=== PATIENT | female | born 1940 | race Caucasian/White ===

== ENCOUNTER 2017-09-09 13:31 | Inpatient (IN) ==
[2017-09-09] MEDS ORDERED: Ipratropium/Albuterol Neb 3 ML IH ONE (13:55)
[2017-09-09 14:30] LABS: Hematocrit 38.2 % (35.3-44.9); Mean Corpuscular HGB Conc 31.4 g/dL (31.6-35.5); Mean Corpuscular Hemoglobin 27.9 pg (28.0-33.3); Mean Corpuscular Volume 88.8 fL (83.0-100.0); Mean Platelet Volume 10.9 fL (9.4-12.4); Platelet Count 450 K/mcL (140-400); Red Cell Distribution Width 14.4 % (11.5-14.5)
[2017-09-09 14:49] LABS: BUN/Creatinine Ratio 24 (6-26); Blood Urea Nitrogen 18 mg/dL (8-23); Calcium 9.1 mg/dL (8.6-10.3); Carbon Dioxide 30 mEq/L (23-29); Chloride 94 mEq/L (98-107); Glucose 262 mg/dL (70-105); Osmolality,Calculated 289 (280-300); Potassium 4.4 mEq/L (3.5-5.1); Sodium 134 mEq/L (136-145); eGFR For African Americans > 60 (> 60); eGFR For Non-African Americans > 60 (> 60)
[2017-09-09 14:50] LABS: Troponin I 0.03 ng/mL (< 0.04)
--- NOTE | 2017-09-09 14:50 | Emergency Department Note ---
Disposition Clinical Impression: Community acquired pneumonia Qualifiers: Laterality: right Lung location: lower lobe of lung Qualified Code(s): J18.1 - Lobar pneumonia, unspecified organism Disposition: Admitted As Inpatient Condition: Fair SOB HPI - General Chief Complaint: ED Shortness of Breath/Dyspnea Stated Complaint: Shortness of breath Source: patient Mode of arrival: private vehicle Limitations: no limitations Nursing Notes Reviewed: Yes Vital Signs Reviewed: Yes - History of Present Illness Presents to the ED with complaint of feeling short of breath for the past week as well as a productive cough. She states her sputum has been dark yellow. She has been using her albuterol 4 times a day and she normally only uses it 3 times a day without any improvement. She reports chest congestion. She denies any rhinorrhea or nasal congestion. No sore throat or sneezing. No fever chills. She saw the nurse practitioner at her PCPs office 2 days ago and was diagnosed with sinusitis with postnasal drip. She was prescribed Zyrtec and Flonase. She wass not given any antibiotics. She states that she started taking some leftover prednisone that she had at home a few days ago and has been taking 40 mg a day for the past 5 days. She wears oxygen at 2-2-1/2 L at home but had oxygen saturation of 87% on arrival per nursing staff on 3 L. She has a history of COPD and takes Symbicort, Spiriva and Tessalon Perles at home. She is an ex-smoker of over 50 years and has been using E cigarettes for the past 3 years. She denies any recent travel or sick contacts. - Related Data Home Medications Medication Instructions Recorded Confirmed Budesonide/Formoterol 160/4.5 2 puff IH BIDR 03/09/15 09/09/17 [Symbicort] LORazepam [Ativan] 0.5 mg PO QID 03/09/15 09/09/17 Tiotropium [Spiriva] 18 mcg IH 0700 03/09/15 06/14/17 Aspirin [Adult Low Dose Aspirin EC] 81 mg PO 3XW 08/12/15 09/09/17 Acetylcysteine [Nac] 600 mg PO BID 09/09/17 09/09/17 Albuterol Sulfate [Ventolin Hfa] 18 gm IH AD 09/09/17 09/09/17 Atorvastatin [Lipitor] 20 mg PO DAILY 09/09/17 09/09/17 Benzonatate [Tessalon] 100 mg PO TID 09/09/17 09/09/17 Metoprolol [Lopressor] 50 mg PO DAILY 09/09/17 09/09/17 predniSONE [PredniSONE] 20 mg PO DAILY 09/09/17 09/09/17 Previous Rx's Medication Instructions Recorded Cefuroxime PO [Ceftin] 500 mg PO Q12HR #6 tablet 08/15/15 amLODIPine [Norvasc] 5 mg PO DAILY #30 tablet 08/15/15 Allergies Allergy/AdvReac Type Severity Reaction Status Date / Time codeine Allergy Rash Verified 09/09/17 13:32 levofloxacin [From Levaquin] Allergy Joint Pain Verified 09/09/17 13:32 Constitutional: Denies: fever, chills, weakness, weight change Eyes: Denies: eye pain, eye discharge, vision change ENT ED: Reports: congestion. Denies: ear pain, throat pain, dental pain, hearing loss, epistaxis, dysphagia Cardiovascular: Denies: chest pain, palpitations, dyspnea on exertion, edema, syncope Respiratory: Reports: cough, dyspnea, wheezes, sputum production. Denies: hemoptysis, stridor Gastrointestinal: Denies: abdominal pain, nausea, vomiting, diarrhea, constipation, hematemesis, melena, hematochezia Genitourinary: Denies: dysuria, frequency, hematuria, discharge Musculoskeletal: Denies: back pain, neck pain, arthralgia, myalgia Integumentary: Denies: rash, abrasion, lesions Neurological: Denies: headache, weakness, numbness, paresthesias, confusion, abnormal gait, vertigo Psychiatric: Denies: anxiety, depression, suicidal thoughts, homicidal thoughts , auditory hallucinations, visual hallucinations Endocrine: Denies: fatigue Hematological/Lymphatic: Denies: easy bleeding, easy bruising Allergic/Immunologic: Denies: facial swelling, urticaria Past Medical History - Past Medical History Medical history: Reports: COPD, hyperlipidemia, hypertension Surgical history: Reports: appendectomy Psychiatric history: Reports: anxiety - Social History Smoking Status: Former smoker Smokeless Tobacco Status: No Alcohol use: Reports: none Drug use: Reports: none Physical Exam - General Limitations: no limitations General appearance: alert, in no apparent distress - Head Head exam: atraumatic, normocephalic, normal inspection - Eye Eye exam: Present: normal appearance, PERRL, EOMI - ENT ENT exam: normal exam, normal oropharynx, mucous membranes moist - Neck Neck exam: Present: normal inspection, full ROM, trachea midline. Absent: lymphadenopathy - Chest Chest inspection: Present: normal inspection, symmetric chest wall rise - Respiratory Respiratory exam: Present: wheezes (scattered). Absent: respiratory distress - Cardiovascular Cardiovascular exam: Present: regular rate, normal rhythm, normal heart sounds - Abdominal Exam Abdominal exam: Present: soft, Non-Tender. Absent: tenderness, distention, guarding, rebound, rigidity - Extremities Exam Extremities exam: Present: normal inspection, full ROM. Absent: tenderness, pedal edema - Back Exam Back exam: Present: normal inspection, full ROM. Absent: tenderness - Neurological Exam Neurological exam: Present: alert, oriented X3 - Psychiatric Psychiatric exam: Present: normal affect, normal mood - Skin Skin exam: Present: warm, dry, intact, normal color Course Course Narrative: Patient presents to the ED with complaint of shortness of breath and productive cough for one week with history of COPD and home oxygen use. Per nursing staff patient had diffuse wheezing on arrival was satting 87%. She received 2 DuoNeb treatments prior to my assessment. On my assessment patient only had some scattered wheezing and oxygen saturations had improved to 93% on 3 L. Primary concern would be for pneumonia versus COPD exacerbation. Less likely CHF. Chest x-ray and laboratory studies have already been obtained and are pending. - Reevaluation(s) Reevaluation #1: KG shows a sinus rhythm with no acute ischemic changes. Chest x-ray shows possibility of by basilar infiltrates versus possible CHF. Patient does have an elevated d-dimer. Will obtain CTA of the chest to rule out PE and better clarify whether the patient is experiencing pneumonia versus CHF. Laboratory studies do show significant leukocytosis with left shift which I feel is due to both a likely pneumonia as well as her recent high steroid use. She also has a mildly elevated lactic acid. She is afebrile however and her tachycardia has resolved with her improved oxygenation. Will obtain blood cultures and start antibiotics for suspected pneumonia. Reevaluation #2: CT scan of the chest did not show any PE. Does show right lower lobe pneumonia as well as some other scattered opacities consistent with nodule seen on previous CT scans. Patient has remained comfortable with no respiratory distress or recurrent hypoxia. Discussed with patient the need for admission for continued antibiotic therapy and breathing treatments and she is in agreement. Blood cultures been drawn and antibiotics have been initiated. Will contact the hospitalist regarding admission. Reevaluation #3: I spoke to the hospitalist on-call, Dr. Dave, who has accepted the patient. Will make arrangements for admission. Time: 17:56 Vital Signs Pulse Rate 94 09/09/17 13:31 Respiratory Rate 22 09/09/17 13:31 Blood Pressure 109/64 09/09/17 13:31 O2 Sat by Pulse Oximetry 92 09/09/17 13:31 Temperature 98.1 F 09/09/17 20:54 Pulse Rate 97 09/09/17 20:54 Respiratory Rate 16 09/10/17 00:01 Blood Pressure 140/76 09/09/17 20:54 O2 Sat by Pulse Oximetry 96 09/10/17 00:01 Oxygen Delivery Oxygen Delivery Nasal Cannula Shortness of Breath/Dyspnea - Differential Diagnosis Likely: acute exacerbation of chronic obstructive airways disease, congestive heart failure, pneumonia, pulmonary embolism - Medical Records Medical records reviewed: Yes I reviewed the patient's medical records. - Lab Data Lab results reviewed: Yes I reviewed the patient's lab results. Result diagrams: 09/09/17 14:10 09/09/17 14:10 Lab Results 09/09/17 09/09/17 09/09/17 Range/Units 14:10 14:10 14:10 WBC 40.0 H* (4.3-11.1) K/mcL RBC 4.30 (3.82-4.97) M/mcL Hgb 12.0 (11.5-15.4) g/dL Hct 38.2 (35.3-44.9) % MCV 88.8 (83.0-100.0) fL MCH 27.9 L (28.0-33.3) pg MCHC 31.4 L (31.6-35.5) g/dL RDW 14.4 (11.5-14.5) % Plt Count 450 H (140-400) K/mcL MPV 10.9 (9.4-12.4) fL Seg Neutrophils % 78.0 % Band Neutrophils % 8.0 H (0-4) % Lymphocytes % 12.0 % Basophils % 2.0 % Neutrophils # 34.4 H (1.6-8.9) K/mcL Lymphocytes # 4.8 H (0.6-4.6) K/mcL Basophils # 0.8 H (0.0-0.2) K/mcL D-Dimer 1732 H (0-500) ng/mLFEU Sodium 134 L (136-145) mEq/L Potassium 4.4 (3.5-5.1) mEq/L Chloride 94 L (98-107) mEq/L Carbon Dioxide 30 H (23-29) mEq/L BUN 18 (8-23) mg/dL Creatinine 0.76 (0.60-1.20) mg/dL Est GFR ( Amer) > 60 (> 60) Est GFR (Non-Af Amer) > 60 (> 60) BUN/Creatinine Ratio 24 (6-26) Glucose 262 H (70-105) mg/dL Calculated Osmolality 289 (280-300) Lactic Acid (0.5-2.2) mmol/L Calcium 9.1 (8.6-10.3) mg/dL Troponin I 0.03 (< 0.04) ng/mL B-Natriuretic Peptide (Less than 100) pg/mL Urine Color (Yellow) Urine Clarity (Clear) Urine pH (5.0-8.0) pH Units Ur Specific [place] (1.010-1.025) Urine Protein (Neg-Trace) mg/dL Urine Glucose (UA) (Normal) mg/dL Urine Ketones (Negative) mg/dL Urine Blood (Negative) Urine Nitrite (Negative) Urine Bilirubin (Negative) Urine Urobilinogen (Normal) mg/dL Ur Leukocyte Esterase (Negative) Urine Microscopic WBC (0-3) per hpf Ur Squamous Epith Cells (None-Few) per lpf Ur Renal Epithelial Cell (None-Few) per hpf Ur Culture Indicated? (NO) 09/09/17 09/09/17 09/09/17 Range/Units 14:10 14:10 16:00 WBC (4.3-11.1) K/mcL RBC (3.82-4.97) M/mcL Hgb (11.5-15.4) g/dL Hct (35.3-44.9) % MCV (83.0-100.0) fL MCH (28.0-33.3) pg MCHC (31.6-35.5) g/dL RDW (11.5-14.5) % Plt Count (140-400) K/mcL MPV (9.4-12.4) fL Seg Neutrophils % % Band Neutrophils % (0-4) % Lymphocytes % % Basophils % % Neutrophils # (1.6-8.9) K/mcL Lymphocytes # (0.6-4.6) K/mcL Basophils # (0.0-0.2) K/mcL D-Dimer (0-500) ng/mLFEU Sodium (136-145) mEq/L Potassium (3.5-5.1) mEq/L Chloride (98-107) mEq/L Carbon Dioxide (23-29) mEq/L BUN (8-23) mg/dL Creatinine (0.60-1.20) mg/dL Est GFR ( Amer) (> 60) Est GFR (Non-Af Amer) (> 60) BUN/Creatinine Ratio (6-26) Glucose (70-105) mg/dL Calculated Osmolality (280-300) Lactic Acid 2.4 H (0.5-2.2) mmol/L Calcium (8.6-10.3) mg/dL Troponin I (< 0.04) ng/mL B-Natriuretic Peptide 580 H (Less than 100) pg/mL Urine Color Yellow (Yellow) Urine Clarity Clear (Clear) Urine pH 5.0 (5.0-8.0) pH Units Ur Specific [place] <= 1.005 L (1.010-1.025) Urine Protein 30 H (Neg-Trace) mg/dL Urine Glucose (UA) Normal (Normal) mg/dL Urine Ketones Negative (Negative) mg/dL Urine Blood Negative (Negative) Urine Nitrite Negative (Negative) Urine Bilirubin Negative (Negative) Urine Urobilinogen Normal (Normal) mg/dL Ur Leukocyte Esterase Negative (Negative) Urine Microscopic WBC 0-3 (0-3) per hpf Ur Squamous Epith Cells Few (None-Few) per lpf Ur Renal Epithelial Cell Few (None-Few) per hpf Ur Culture Indicated? NO (NO) - Radiology Data Radiology results reviewed: Yes I reviewed the patient's radiology results. ITS Impressions Chest X-Ray 09/09/17 13:58 IMPRESSION: Bibasilar infiltrates, right greater than left, with small effusions. Findings may be related to CHF or pneumonia. D/ / Bhaskar Vazquez MD / Bhaskar Vazquez MD Interpreting Provider: Bhaskar Vazquez MD Chest CTA 09/09/17 15:06 IMPRESSION: 1. No pulmonary embolus is identified. 2. Right lower lobe pneumonia suspected, new since prior. Other areas of peripheral nodular opacification in the bilateral lower lobes are identified that also appear new. 3. Nodular scarring in the right apex is identified and not significantly changed in appearance compared to the July 2016 evaluation. This is more prominent in size compared to the July 2015 evaluation, now measuring up to 25 mm in maximum dimension. RECOMMENDATIONS: 1. Short-term follow-up CT to evaluate for resolution of pneumonia. 2. Consider PET-CT to evaluate any metabolic activity in the area of right apical opacification that appears enlarged compared to prior evaluation of 08/13/2015. D/ : / 09/09/2017 17:05:44 Thaddeus Fan / sky Interpreting Provider: Thaddeus Fan - EKG Data EKG attestation: Yes I reviewed and interpreted this EKG. EKG shows normal: Reports: sinus rhythm Rate: Reports: tachycardia Rhythm: Reports: NSR [place]/QRS: Reports: left axis deviation, LBBB When compared to previous EKG there are: previous EKG unavailable Interpretation: Reports: no acute changes
[2017-09-09 14:59] LABS: Basophils # 0.8 K/mcL (0.0-0.2); Lymphocytes # 4.8 K/mcL (0.6-4.6); Neutrophils # 34.4 K/mcL (1.6-8.9)
[2017-09-09] MEDS ORDERED: Isovue-370 500 ML INFUS..BTL IV ONE ×2 (15:06→20:57)
[2017-09-09] MEDS ORDERED: cefTRIAXone 1,000 MG in Water for inj. (sterile) 20 ML 10 ML IVP ONE (15:07)
[2017-09-09] MEDS ORDERED: Azithromycin 500 MG in D5% in Water 250 ML IVPB ONE (15:07)
[2017-09-09 16:30] LABS: Bilirubin,Urine Negative (Negative); Blood,Urine Negative (Negative); Clarity,Urine Clear (Clear); Color,Urine Yellow (Yellow); Glucose,Urine (UA) Normal (Normal); Ketones,Urine Negative (Negative); Leukocyte Esterase,Urine Negative (Negative); Nitrite,Urine Negative (Negative); Protein,Urine 30 mg/dL (Neg-Trace); Specific Gravity,Urine <= 1.005 (1.010-1.025); Urobilinogen,Urine Normal (Normal)
[2017-09-09 16:36] LABS: Renal Epithelial Cells,Urine Few per hpf (None-Few); Squamous Epithelial Cell,Urine Few per lpf (None-Few); WBC,Urine 0-3 per hpf (0-3)
[2017-09-09] MEDS ORDERED: 0.9 % Sodium Chloride 1,000 ML IVC SCH (17:45)
[2017-09-09] MEDS ORDERED: Naloxone 0.4 MG/ML INJ IVP PRN ×2 (18:36→20:57)
[2017-09-09] MEDS ORDERED: predniSONE 5 MG TABLET PO ONE (18:40)
[2017-09-09] MEDS ORDERED: Ipratropium/Albuterol Neb 3 ML IH SCH (20:00)
[2017-09-09] MEDS ORDERED: *HR* Acetylcysteine 20% 600 MG/3 ML ORAL SYRINGE PO SCH (21:00)
[2017-09-09] MEDS: Budesonide/Formoterol 160/4.5 MDI IH SCH (21:41)
[2017-09-09] MEDS: Benzonatate 100 MG CAPSULE PO SCH (21:50)
[2017-09-09] MEDS: *HR* LORazepam 0.5 MG TABLET PO SCH (21:50)
[2017-09-10] MEDS: Ipratropium/Albuterol Neb 3 ML IH SCH ×4 (00:01→16:31)
[2017-09-10] MEDS: 0.9 % Sodium Chloride 1,000 ML IVC SCH ×3 (03:00→11:35)
[2017-09-10 06:48] LABS: Basophils % 0.1 %; Hematocrit 31.4 % (35.3-44.9); Hemoglobin 9.6 g/dL (11.5-15.4); Lymphocytes # 0.6 K/mcL (0.6-4.6); Lymphocytes % 2.3 %; Mean Corpuscular HGB Conc 30.6 g/dL (31.6-35.5); Mean Corpuscular Hemoglobin 27.7 pg (28.0-33.3); Mean Corpuscular Volume 90.5 fL (83.0-100.0); Mean Platelet Volume 11.1 fL (9.4-12.4); Monocytes # 1.1 K/mcL (0.0-1.3); Monocytes % 4.5 %; Platelet Count 340 K/mcL (140-400); Red Blood Count 3.47 M/mcL (3.82-4.97); Red Cell Distribution Width 14.4 % (11.5-14.5); Segmented Neutrophils % 92.1 %
[2017-09-10 07:25] LABS: Neutrophils # 22.5 K/mcL (1.6-8.9)
[2017-09-10 07:32] LABS: Anisocytosis 1+ (Not Present); Ovalocytes 1+ (Not Present); Platelet Estimate Normal (Normal)
[2017-09-10] MEDS: Benzonatate 100 MG CAPSULE PO SCH ×3 (08:25→20:49)
[2017-09-10] MEDS: *HR* LORazepam 0.5 MG TABLET PO SCH ×4 (08:25→20:49)
[2017-09-10] MEDS: amLODIPine 5 MG TABLET PO SCH (08:25)
[2017-09-10] MEDS: Tiotropium 18 MCG inhalation IH SCH (08:55)
[2017-09-10] MEDS: Budesonide/Formoterol 160/4.5 MDI IH SCH ×2 (10:23→21:12)
[2017-09-10] MEDS: Nicotine 21 MG PATCH.TD24 TD SCH (11:34)
--- NOTE | 2017-09-10 12:16 | Internal Med History&Physical ---
Date of Encounter: 09/10/17 Time of Encounter: 11:45 Assessment and Plan (1) Community acquired pneumonia Current visit: Yes Status: Acute She was given Rocephin and Zithromax in emergency room. We will continue these with lactobacillus. Qualifiers: Laterality: right Lung location: lower lobe of lung Qualified Code(s): J18.1 - Lobar pneumonia, unspecified organism (2) Acute exacerbation of chronic obstructive airways disease Current visit: No Status: Acute Continue antibiotics with Symbicort, Spiriva, and duonebs. (3) Hypertension Current visit: No Status: Chronic Continue Norvasc and Lopressor Qualifiers: Hypertension type: essential hypertension Qualified Code(s): I10 - Essential (primary) hypertension (4) Anemia Current visit: Yes Status: Acute Hemoglobin decreased to 9.6 today. We will order anemia testing in a.m. Qualifiers: Anemia type: unspecified type Qualified Code(s): D64.9 - Anemia, unspecified Internal Medicine - H&P: HPI Chief complaint: Cough, dyspnea, chest pain Admitted From: Emergency Dept Plans for Post Hospital Care: Home History of present illness: Ms. Huff is a 77 year old female who came to emergency room stating she has had cough for approximately 2 weeks with production of yellow sputum. She denies hemoptysis. She reports the morning of September 08 she developed lower oxygen saturation by her home pulse oximetry. She had some soreness in her back and lateral chest area. She did not improve so came to emergency room on September 09. Workup showed significant leukocytosis with left shift and CT evidence of right lower lobe pneumonia with peripheral nodular opacifications in bilateral lower lobes. She was admitted to [facility] floor for ongoing care needs. She quit smoking 2015 after smoking for over 50 years never exceeding 1 pack per day. She now uses vapor nicotine source. She had pulmonary function tests approximately July 2015 that showed very severe obstructive lung disease without significant bronchodilator response. Her FEV1 was 27% predicted and she had evidence of air trapping. She wears oxygen at home nearly 24. She has not been tested for sleep apnea. Past Med Surg Social Fam HX - Past Medical History Medical history: COPD, hyperlipidemia, hypertension Psychiatric history: anxiety - Past Surgical History Surgical History: appendectomy - Social History Smoking Status: Former smoker Smokeless Tobacco Status: No Alcohol use: none Drug use: none - Family History Mother Hx Family Cardiac Disorders: Yes ([place]) Hx Family Medical Disorders: Yes (stroke) Father Hx Family Cardiac Disorders: Yes ([place]) Internal Medicine - H&P: Meds Budesonide/Formoterol 160/4.5 [Symbicort] 2 puff IH BIDR 03/09/15 [History] LORazepam [Ativan] 0.5 mg PO QID 03/09/15 [History] Tiotropium [Spiriva] 18 mcg IH 0700 03/09/15 [History] Aspirin [Adult Low Dose Aspirin EC] 81 mg PO 3XW 08/12/15 [History] Cefuroxime PO [Ceftin] 500 mg PO Q12HR #6 tablet 08/15/15 [Rx] amLODIPine [Norvasc] 5 mg PO DAILY #30 tablet 08/15/15 [Rx] Acetylcysteine [Nac] 600 mg PO BID 09/09/17 [History] Albuterol Sulfate [Ventolin Hfa] 18 gm IH AD 09/09/17 [History] Atorvastatin [Lipitor] 20 mg PO DAILY 09/09/17 [History] Benzonatate [Tessalon] 100 mg PO TID 09/09/17 [History] Metoprolol [Lopressor] 50 mg PO DAILY 09/09/17 [History] predniSONE [PredniSONE] 20 mg PO DAILY 09/09/17 [History] 3 Allergy/AdvReac Type Severity Reaction Status Date / Time codeine Allergy Rash Verified 09/09/17 13:32 levofloxacin [From Levaquin] Allergy Joint Pain Verified 09/09/17 13:32 All Systems PM: A 10-system review of systems was performed and is negative for pertinent findings except as documented above in the HPI. Review of systems: Gen.: Her weight has decreased from 54.613 kg on 08/15/2015 to 51.71 kg now Cardiovascular: She has hypertension but no known [place] heart failure angina DVT or pulmonary embolus. She reports she had a "heart rhythm" issue approximately 3 years ago does not recall the name. She saw a vacuum cooker operator for 1 visit and was told she did not need to return. Respiratory: As per history of present illness GI: She denies disorders of her liver gallbladder or exocrine pancreas. : No known hematuria dysuria or kidney stones. Neurologic: No history of large distribution strokes or seizures. Endocrine: She has had right thyroid "enlargement" but is uncertain if it is a cyst or nodule. She has a history of hyperlipidemia but no known diabetes. Hematology/oncology: She denies blood disorders cancers or anemia. Psychiatric: She has anxiety and depression. [place] skeletal: She denies arthritis gout or osteoporosis. - Constitutional Vitals: Temp Pulse Resp BP Pulse Ox 97.7 F 104 22 136/79 92 09/10/17 10:22 09/10/17 10:22 09/10/17 10:22 09/10/17 10:22 09/10/17 10:22 Exam: Gen.: She is well-developed lean occasion female sitting on the side of bed who appears in minimal distress at present time HEENT: Head is atraumatic and normocephalic. Eyes: EOMI. There is no scleral icterus. Mouth: Mucosa is moist. Neck: Supple and nontender. There is no thyromegaly or adenopathy noted. Heart: Regular without murmurs gallops or ectopics Lungs: She has diminished breath sounds diffusely. There is egophony in the upper lobes bilaterally posteriorly. No expiratory wheezing is heard. Abdomen: Nontender to palpation. Exam is limited because she is in the seated position. Extremities: She has trace edema of the dorsum of the feet and lower anterior shins bilaterally. Dorsalis pedis and posterior tibial pulses are trace palpable. She has DJD changes or hands. Neurologic: Mental status: She is talkative and a good historian. Cranial nerves: Smile is symmetric. Forehead wrinkles bilaterally. Tongue protrudes midline. EOMI. Motor: There is no pronator drift. Cerebellar: Finger to nose is intact bilaterally. Skin: Warm and dry Internal Med - H&P Results - Labs CBC & Chem 7: 09/10/17 04:02 09/09/17 14:10 Labs: Short CBC 09/10/17 Range/Units 04:02 WBC 24.4 H (4.3-11.1) K/mcL Hgb 9.6 L D (11.5-15.4) g/dL Hct 31.4 L (35.3-44.9) % Plt Count 340 (140-400) K/mcL Neutrophils # 22.5 H (1.6-8.9) K/mcL - VTE Reasons for not Prescribing Prophylaxis: Treatment not Indicated - Low risk for VTE
[2017-09-10] MEDS ORDERED: D5% in Water 250 ML ONE (14:39)
[2017-09-10] MEDS: cefTRIAXone 1,000 MG in Water for inj. (sterile) 20 ML 10 ML IVP SCH (14:46)
[2017-09-10] MEDS: Azithromycin 500 MG in D5% in Water 250 ML IVPB SCH (14:47)
--- NOTE | 2017-09-10 17:04 | Electrocardiograph Report ---
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
[2017-09-10] MEDS: Lactobacillus 1 EACH CAP.SPRINK PO SCH (20:49)
[2017-09-10] MEDS: Loratadine 10 MG TABLET PO SCH (20:49)
[2017-09-10] MEDS: Fluticasone Propionate Nasal 50 MCG/SPRAY BOTTLE NS SCH (20:49)
[2017-09-10] MEDS: Albuterol 2.5 MG/3 ML NEBULIZER IH PRN (21:16)
[2017-09-11] MEDS: Acetaminophen 325 MG TABLET PO PRN (00:01)
[2017-09-11] MEDS: *HR* Enoxaparin 40 MG/0.4 ML SYRINGE SQ SCH (06:28)
[2017-09-11] MEDS: Tiotropium 18 MCG inhalation IH SCH (08:00)
[2017-09-11] MEDS: Albuterol 2.5 MG/3 ML NEBULIZER IH PRN ×2 (08:05→20:35)
[2017-09-11] MEDS: Aspirin Enteric Coated 81 MG Tablet PO SCH (08:38)
[2017-09-11] MEDS: Loratadine 10 MG TABLET PO SCH (08:39)
[2017-09-11] MEDS: amLODIPine 5 MG TABLET PO SCH (08:39)
[2017-09-11] MEDS: Lactobacillus 1 EACH CAP.SPRINK PO SCH ×2 (08:39→20:23)
[2017-09-11] MEDS: *HR* LORazepam 0.5 MG TABLET PO SCH ×4 (08:39→20:23)
[2017-09-11] MEDS: Benzonatate 100 MG CAPSULE PO SCH ×3 (08:47→20:23)
[2017-09-11] MEDS: cefTRIAXone 1,000 MG in Water for inj. (sterile) 20 ML 10 ML IVP SCH (08:48)
[2017-09-11] MEDS: Fluticasone Propionate Nasal 50 MCG/SPRAY BOTTLE NS SCH (08:55)
[2017-09-11] MEDS: Nicotine 21 MG PATCH.TD24 TD SCH (08:56)
[2017-09-11] MEDS: Budesonide/Formoterol 160/4.5 MDI IH SCH ×2 (10:29→20:35)
[2017-09-11 12:05] LABS: Basophils # 0.1 K/mcL (0.0-0.2); Basophils % 0.3 %; Eosinophils # 0.2 K/mcL (0.0-0.6); Hematocrit 37.5 % (35.3-44.9); Hemoglobin 11.4 g/dL (11.5-15.4); Lymphocytes # 1.1 K/mcL (0.6-4.6); Lymphocytes % 5.5 %; Mean Corpuscular HGB Conc 30.4 g/dL (31.6-35.5); Mean Corpuscular Hemoglobin 27.7 pg (28.0-33.3); Mean Platelet Volume 10.1 fL (9.4-12.4); Monocytes # 1.4 K/mcL (0.0-1.3); Monocytes % 7.1 %; Neutrophils # 16.7 K/mcL (1.6-8.9); Platelet Count 454 K/mcL (140-400); Red Blood Count 4.12 M/mcL (3.82-4.97); Red Cell Distribution Width 14.4 % (11.5-14.5); Segmented Neutrophils % 85.1 %
[2017-09-11] MEDS ORDERED: Azithromycin 500 MG VIAL IVPB ONE (13:16)
[2017-09-11] MEDS: Azithromycin 500 MG in D5% in Water 250 ML IVPB SCH (13:23)
--- NOTE | 2017-09-11 18:18 | Internal Med Progress Note ---
Date of Encounter: 09/11/17 Time of Encounter: 12:25 - Assessment and plan (1) Community acquired pneumonia Current Visit: Yes Status: Acute Assessment and plan: September 11. Continue Rocephin and Zithromax with lactobacillus. Qualifiers: Laterality: right Lung location: lower lobe of lung Qualified Code(s): J18.1 - Lobar pneumonia, unspecified organism (2) Acute exacerbation of chronic obstructive airways disease Current Visit: No Status: Acute Assessment and plan: September 11. Continue antibiotics with Symbicort, Spiriva, and albuterol nebs (3) Hypertension Current Visit: No Status: Chronic Assessment and plan: September 11. Continue Norvasc and Lopressor. Qualifiers: Hypertension type: essential hypertension Qualified Code(s): I10 - Essential (primary) hypertension (4) Anemia Current Visit: Yes Status: Acute Assessment and plan: September 11. Hemoglobin improved to 11.4. We will order anemia testing in a.m. Qualifiers: Anemia type: unspecified type Qualified Code(s): D64.9 - Anemia, unspecified - Subjective Interval history: September 11. She has no new complaints. - Constitutional Vitals: Temp Pulse Resp BP Pulse Ox 98.0 F 99 22 128/77 92 09/11/17 15:38 09/11/17 15:38 09/11/17 15:38 09/11/17 15:38 09/11/17 15:38 Exam: She is sitting on the side of bed resting comfortably. Her oxygen saturation is 89-90% at rest. She does not appear significantly dyspneic. I reviewed her medications and lab results. Internal Medicine: Result - Labs CBC & Chem 7: 09/11/17 11:58 09/09/17 14:10 Labs: Short CBC 09/11/17 Range/Units 11:58 WBC 19.6 H (4.3-11.1) K/mcL Hgb 11.4 L D (11.5-15.4) g/dL Hct 37.5 (35.3-44.9) % Plt Count 454 H (140-400) K/mcL Neutrophils # 16.7 H (1.6-8.9) K/mcL - ABG Interpretation ABG results: PT/INR, D-dimer D-Dimer 1732 ng/mLFEU (0-500) H 09/09/17 14:10 - VTE Reasons for not Prescribing Prophylaxis: Treatment not Indicated - Low risk for VTE Consult Discharge Plan - Plan Referrals: Chung Henderson MD [Primary Care Provider] - 1 week
[2017-09-12] MEDS: Acetaminophen 325 MG TABLET PO PRN ×2 (00:18→18:34)
[2017-09-12] MEDS: *HR* Enoxaparin 40 MG/0.4 ML SYRINGE SQ SCH (05:30)
[2017-09-12 06:46] LABS: Basophils # 0.1 K/mcL (0.0-0.2); Basophils % 0.3 %; Eosinophils # 0.2 K/mcL (0.0-0.6); Eosinophils % 1.2 %; Hematocrit 34.7 % (35.3-44.9); Hemoglobin 10.8 g/dL (11.5-15.4); Immature Granulocytes % 0.8 % (0-4); Lymphocytes # 1.5 K/mcL (0.6-4.6); Lymphocytes % 8.3 %; Mean Corpuscular HGB Conc 31.1 g/dL (31.6-35.5); Mean Corpuscular Hemoglobin 27.6 pg (28.0-33.3); Mean Corpuscular Volume 88.5 fL (83.0-100.0); Mean Platelet Volume 10.3 fL (9.4-12.4); Monocytes # 1.3 K/mcL (0.0-1.3); Monocytes % 7.1 %; Neutrophils # 15.1 K/mcL (1.6-8.9); Platelet Count 405 K/mcL (140-400); Red Blood Count 3.92 M/mcL (3.82-4.97); Red Cell Distribution Width 14.2 % (11.5-14.5); Segmented Neutrophils % 82.3 %
[2017-09-12 07:06] LABS: BUN/Creatinine Ratio 25 (6-26); Blood Urea Nitrogen 14 mg/dL (8-23); Calcium 8.3 mg/dL (8.6-10.3); Carbon Dioxide 31 mEq/L (23-29); Chloride 94 mEq/L (98-107); Glucose 148 mg/dL (70-105); Osmolality,Calculated 275 (280-300); Potassium 3.9 mEq/L (3.5-5.1); Sodium 131 mEq/L (136-145); eGFR For African Americans > 60 (> 60); eGFR For Non-African Americans > 60 (> 60)
[2017-09-12] MEDS: Nicotine 21 MG PATCH.TD24 TD SCH (08:42)
[2017-09-12] MEDS: *HR* LORazepam 0.5 MG TABLET PO SCH ×4 (08:43→21:05)
[2017-09-12] MEDS: cefTRIAXone 1,000 MG in Water for inj. (sterile) 20 ML 10 ML IVP SCH (08:43)
[2017-09-12] MEDS: amLODIPine 5 MG TABLET PO SCH (08:43)
[2017-09-12] MEDS: Benzonatate 100 MG CAPSULE PO SCH ×3 (08:43→21:05)
[2017-09-12] MEDS: Lactobacillus 1 EACH CAP.SPRINK PO SCH ×2 (08:43→21:05)
[2017-09-12] MEDS: Loratadine 10 MG TABLET PO SCH (08:43)
[2017-09-12] MEDS: Fluticasone Propionate Nasal 50 MCG/SPRAY BOTTLE NS SCH (08:44)
[2017-09-12] MEDS ORDERED: Bisacodyl 10 MG RECTAL SUPPOSITORY RC PRN (09:09)
--- NOTE | 2017-09-12 09:15 | Internal Med Progress Note ---
Date of Encounter: 09/12/17 Time of Encounter: 09:00 - Assessment and plan (1) Community acquired pneumonia Current Visit: Yes Status: Acute Assessment and plan: September 11. Continue Rocephin and Zithromax with lactobacillus. Qualifiers: Laterality: right Lung location: lower lobe of lung Qualified Code(s): J18.1 - Lobar pneumonia, unspecified organism (2) Acute exacerbation of chronic obstructive airways disease Current Visit: No Status: Acute Assessment and plan: September 11. Continue antibiotics with Symbicort, Spiriva, and albuterol nebs (3) Hypertension Current Visit: No Status: Chronic Assessment and plan: September 11. Continue Norvasc and Lopressor. September 12. We will discontinue Norvasc because of edema. We will increase Lopressor to 50 mg twice a day. Qualifiers: Hypertension type: essential hypertension Qualified Code(s): I10 - Essential (primary) hypertension (4) Anemia Current Visit: Yes Status: Acute Assessment and plan: September 11. Hemoglobin improved to 11.4. We will order anemia testing in a.m. September 12. Anemia testing pending. Qualifiers: Anemia type: unspecified type Qualified Code(s): D64.9 - Anemia, unspecified (5) Elevated brain natriuretic peptide (BNP) level Current Visit: Yes Status: Acute Assessment and plan: September 12. No echocardiogram is on file. We will discontinue Norvasc and increase Lopressor. Start isosorbide and Bumex. Recheck labs in a.m. - Subjective Interval history: September 11. She has no new complaints. September 12. She has no new complaints and states she feels better. - Constitutional Vitals: Temp Pulse Resp BP Pulse Ox 98.2 F 108 19 129/74 92 09/12/17 06:56 09/12/17 06:56 09/12/17 06:56 09/12/17 06:56 09/12/17 06:56 Exam: She is resting fairly comfortably in bed. Lungs show no wheezes or crackles. Extremities show 1-2+ edema bilaterally to lower legs. I reviewed her medications. I reviewed pertinent lab results with her. Internal Medicine: Result - Labs CBC & Chem 7: 09/12/17 06:21 09/12/17 06:21 Labs: Short CBC 09/11/17 09/12/17 Range/Units 11:58 06:21 WBC 19.6 H 18.3 H (4.3-11.1) K/mcL Hgb 11.4 L D 10.8 L (11.5-15.4) g/dL Hct 37.5 34.7 L (35.3-44.9) % Plt Count 454 H 405 H (140-400) K/mcL Neutrophils # 16.7 H 15.1 H (1.6-8.9) K/mcL BMP 09/12/17 06:21 Sodium 131 L Potassium 3.9 Chloride 94 L Carbon Dioxide 31 H BUN 14 Creatinine 0.57 L Glucose 148 H Calcium 8.3 L - ABG Interpretation ABG results: PT/INR, D-dimer D-Dimer 1732 ng/mLFEU (0-500) H 09/09/17 14:10 - VTE Reasons for not Prescribing Prophylaxis: Treatment not Indicated - Low risk for VTE Consult Discharge Plan - Plan Referrals: Chung Henderson MD [Primary Care Provider] - 1 week
[2017-09-12] MEDS: Albuterol 2.5 MG/3 ML NEBULIZER IH PRN ×4 (09:40→21:23)
[2017-09-12] MEDS: Budesonide/Formoterol 160/4.5 MDI IH SCH ×2 (09:43→21:20)
[2017-09-12] MEDS: Tiotropium 18 MCG inhalation IH SCH (09:46)
[2017-09-12 09:49] LABS: % Iron Saturation 12 % (15-50); Ferritin 173 ng/ml (10-120); Iron 35 mcg/dL (50-170); Transferrin 207 mg/dL (203-362)
[2017-09-12 10:15] LABS: Folate 20.4 ng/mL (3.0-16.0)
[2017-09-12] MEDS: Bumetanide 1 MG TABLET PO SCH (10:32)
[2017-09-12] MEDS: Isosorbide MONOnitrate (24 HR) 30 MG TAB.ER.24H PO SCH (10:32)
[2017-09-12] MEDS: MOM Conc 10 ML UD.LIQ PO SCH (10:32)
[2017-09-12] MEDS: Azithromycin 500 MG in D5% in Water 250 ML IVPB SCH (13:54)
[2017-09-13] MEDS: *HR* Enoxaparin 40 MG/0.4 ML SYRINGE SQ SCH (05:13)
[2017-09-13 07:02] LABS: Basophils # 0.1 K/mcL (0.0-0.2); Basophils % 0.3 %; Eosinophils # 0.3 K/mcL (0.0-0.6); Eosinophils % 1.7 %; Hematocrit 34.8 % (35.3-44.9); Lymphocytes # 1.7 K/mcL (0.6-4.6); Lymphocytes % 8.8 %; Mean Corpuscular HGB Conc 31.6 g/dL (31.6-35.5); Mean Corpuscular Hemoglobin 27.6 pg (28.0-33.3); Mean Corpuscular Volume 87.2 fL (83.0-100.0); Mean Platelet Volume 10.4 fL (9.4-12.4); Monocytes # 1.6 K/mcL (0.0-1.3); Monocytes % 8.4 %; Platelet Count 458 K/mcL (140-400); Red Blood Count 3.99 M/mcL (3.82-4.97); Segmented Neutrophils % 79.8 %
[2017-09-13 07:23] LABS: Neutrophils # 14.9 K/mcL (1.6-8.9)
[2017-09-13] MEDS: Benzonatate 100 MG CAPSULE PO SCH ×3 (08:50→21:52)
[2017-09-13] MEDS: Bumetanide 1 MG TABLET PO SCH ×2 (08:51→16:44)
[2017-09-13] MEDS: cefTRIAXone 1,000 MG in Water for inj. (sterile) 20 ML 10 ML IVP SCH (08:51)
[2017-09-13] MEDS: Isosorbide MONOnitrate (24 HR) 30 MG TAB.ER.24H PO SCH (08:57)
[2017-09-13] MEDS: *HR* LORazepam 0.5 MG TABLET PO SCH ×4 (08:57→21:52)
[2017-09-13] MEDS: Lactobacillus 1 EACH CAP.SPRINK PO SCH ×2 (08:58→21:52)
[2017-09-13] MEDS: Nicotine 21 MG PATCH.TD24 TD SCH (08:58)
[2017-09-13] MEDS: Loratadine 10 MG TABLET PO SCH (08:58)
[2017-09-13] MEDS: Albuterol 2.5 MG/3 ML NEBULIZER IH PRN ×3 (09:11→22:56)
[2017-09-13] MEDS: Budesonide/Formoterol 160/4.5 MDI IH SCH ×2 (09:13→22:56)
[2017-09-13] MEDS: Tiotropium 18 MCG inhalation IH SCH (09:15)
--- NOTE | 2017-09-13 09:41 | Internal Med Progress Note ---
Date of Encounter: 09/13/17 Time of Encounter: 09:25 - Assessment and plan (1) Community acquired pneumonia Current Visit: Yes Status: Acute Assessment and plan: September 11. Continue Rocephin and Zithromax with lactobacillus. September 13. We will change from Rocephin and Zithromax to Azactam and doxycycline. Continue lactobacillus. Qualifiers: Laterality: right Lung location: lower lobe of lung Qualified Code(s): J18.1 - Lobar pneumonia, unspecified organism (2) Acute exacerbation of chronic obstructive airways disease Current Visit: No Status: Acute Assessment and plan: September 11. Continue antibiotics with Symbicort, Spiriva, and albuterol nebs September 13. We will change antibiotics as per above and continue pulmonary regimen otherwise. (3) Hypertension Current Visit: No Status: Chronic Assessment and plan: September 11. Continue Norvasc and Lopressor. September 12. We will discontinue Norvasc because of edema. We will increase Lopressor to 50 mg twice a day. September 13. Continue higher dose Lopressor and remain off Norvasc. Qualifiers: Hypertension type: essential hypertension Qualified Code(s): I10 - Essential (primary) hypertension (4) Anemia Current Visit: Yes Status: Acute Assessment and plan: September 11. Hemoglobin improved to 11.4. We will order anemia testing in a.m. September 12. Anemia testing pending. September 13. Anemia testing showed iron 35, transferrin saturation 12%, transferrin 207, ferritin 173, B12 1076, and folate 20.4. Will give trial of ferrous sulfate and vitamin C. Qualifiers: Anemia type: unspecified type Qualified Code(s): D64.9 - Anemia, unspecified (5) Elevated brain natriuretic peptide (BNP) level Current Visit: Yes Status: Acute Assessment and plan: September 12. No echocardiogram is on file. We will discontinue Norvasc and increase Lopressor. Start isosorbide and Bumex. Recheck labs in a.m. September 13. Continue Lopressor, isosorbide, and increase Bumex dose. Will order echocardiogram. - Subjective Interval history: September 11. She has no new complaints. September 12. She has no new complaints and states she feels better. September 13. She has no new complaints. She is still dyspneic on exertion. - Constitutional Vitals: Temp Pulse Resp BP Pulse Ox 98.3 F 90 17 131/78 93 09/13/17 07:26 09/13/17 07:26 09/13/17 09:17 09/13/17 07:26 09/13/17 09:17 Exam: She is sitting on the side of bed and appears minimally dyspneic at rest. Her extremity edema is minimally improved from yesterday. Lungs show no wheezes or crackles. There is equivocal egophony in the posterior mid lung murcia. I reviewed her medications. I discussed pertinent lab results with her and her son. Internal Medicine: Result - Labs CBC & Chem 7: 09/13/17 06:30 09/12/17 06:21 Labs: Short CBC 09/13/17 Range/Units 06:30 WBC 18.7 H (4.3-11.1) K/mcL Hgb 11.0 L (11.5-15.4) g/dL Hct 34.8 L (35.3-44.9) % Plt Count 458 H (140-400) K/mcL Neutrophils # 14.9 H (1.6-8.9) K/mcL - ABG Interpretation ABG results: PT/INR, D-dimer D-Dimer 1732 ng/mLFEU (0-500) H 09/09/17 14:10 - VTE Reasons for not Prescribing Prophylaxis: Treatment not Indicated - Low risk for VTE Consult Discharge Plan - Plan Referrals: Chung Henderson MD [Primary Care Provider] - 1 week
[2017-09-13] MEDS ORDERED: Aztreonam 1,000 MG in D5% in Water (Mini-Bag+) 100 ML IVPB SCH (10:00)
[2017-09-13] MEDS ORDERED: Azithromycin 250 MG TABLET PO SCH (13:00)
[2017-09-13] MEDS ORDERED: Azithromycin 500 MG in D5% in Water 250 ML IVPB SCH (13:00)
[2017-09-13] MEDS: WATER FOR INJ IVP SCH ×2 (13:14→21:52)
[2017-09-13] MEDS: AZTREONAM IVP SCH ×2 (13:14→21:52)
[2017-09-13] MEDS: Fluticasone Propionate Nasal 50 MCG/SPRAY BOTTLE NS SCH (13:36)
[2017-09-13] MEDS: Doxycycline 100 MG in 0.9 % Sodium Chloride Mini Bag 100 ML IVPB SCH ×2 (18:01→19:04)
[2017-09-14] MEDS: AZTREONAM IVP SCH ×2 (02:05→10:42)
[2017-09-14] MEDS: WATER FOR INJ IVP SCH ×2 (02:05→10:42)
[2017-09-14] MEDS: Doxycycline 100 MG in 0.9 % Sodium Chloride Mini Bag 100 ML IVPB SCH (05:35)
[2017-09-14] MEDS: *HR* Enoxaparin 40 MG/0.4 ML SYRINGE SQ SCH (05:41)
[2017-09-14 06:24] LABS: Basophils # 0.1 K/mcL (0.0-0.2); Basophils % 0.4 %; Eosinophils # 0.3 K/mcL (0.0-0.6); Eosinophils % 2.4 %; Hematocrit 33.3 % (35.3-44.9); Hemoglobin 10.6 g/dL (11.5-15.4); Immature Granulocytes % 1.2 % (0-4); Lymphocytes % 9.5 %; Mean Corpuscular HGB Conc 31.8 g/dL (31.6-35.5); Mean Corpuscular Hemoglobin 27.6 pg (28.0-33.3); Mean Corpuscular Volume 86.7 fL (83.0-100.0); Mean Platelet Volume 10.1 fL (9.4-12.4); Monocytes # 1.3 K/mcL (0.0-1.3); Monocytes % 8.9 %; Platelet Count 381 K/mcL (140-400); Red Blood Count 3.84 M/mcL (3.82-4.97); Red Cell Distribution Width 13.9 % (11.5-14.5); Segmented Neutrophils % 77.6 %
[2017-09-14] MEDS ORDERED: Ascorbic Acid 500 MG TABLET PO SCH (06:30)
[2017-09-14 06:33] LABS: Lymphocytes # 1.4 K/mcL (0.6-4.6)
[2017-09-14 06:50] LABS: BUN/Creatinine Ratio 16 (6-26); Blood Urea Nitrogen 9 mg/dL (8-23); Calcium 8.3 mg/dL (8.6-10.3); Carbon Dioxide 35 mEq/L (23-29); Chloride 88 mEq/L (98-107); Glucose 138 mg/dL (70-105); Osmolality,Calculated 269 (280-300); Potassium 3.5 mEq/L (3.5-5.1); Sodium 129 mEq/L (136-145); eGFR For African Americans > 60 (> 60); eGFR For Non-African Americans > 60 (> 60)
[2017-09-14] MEDS: Tiotropium 18 MCG inhalation IH SCH (07:28)
[2017-09-14] MEDS: Albuterol 2.5 MG/3 ML NEBULIZER IH PRN (07:32)
[2017-09-14] MEDS: Loratadine 10 MG TABLET PO SCH (07:54)
[2017-09-14] MEDS: Isosorbide MONOnitrate (24 HR) 30 MG TAB.ER.24H PO SCH (07:55)
[2017-09-14] MEDS: Bumetanide 1 MG TABLET PO SCH (07:56)
[2017-09-14] MEDS: *HR* LORazepam 0.5 MG TABLET PO SCH (07:57)
[2017-09-14] MEDS: Lactobacillus 1 EACH CAP.SPRINK PO SCH (07:57)
[2017-09-14] MEDS: Aspirin Enteric Coated 81 MG Tablet PO SCH (07:57)
[2017-09-14] MEDS: Nicotine 21 MG PATCH.TD24 TD SCH (07:57)
[2017-09-14] MEDS: Fluticasone Propionate Nasal 50 MCG/SPRAY BOTTLE NS SCH (07:58)
[2017-09-14] MEDS: Benzonatate 100 MG CAPSULE PO SCH (07:58)
[2017-09-14] MEDS: MOM Conc 10 ML UD.LIQ PO SCH (07:59)
[2017-09-14] MEDS ORDERED: Isosorbide MONOnitrate (24 HR) 30 MG TAB.ER.24H PO SCH (09:48)
[2017-09-14] MEDS: Budesonide/Formoterol 160/4.5 MDI IH SCH (10:17)
[2017-09-14] MEDS: Acetaminophen 325 MG TABLET PO PRN (10:51)
[2017-09-14 11:12] VITALS: BP 116/78
--- NOTE | 2017-09-14 11:12 | Discharge Summary ---
Date of Encounter: 09/14/17 Time of Encounter: 10:15 - Discharge Diagnosis (1) Community acquired pneumonia Priority: Primary Status: Acute Qualifiers: Laterality: right Lung location: lower lobe of lung Qualified Code(s): J18.1 - Lobar pneumonia, unspecified organism (2) Acute exacerbation of chronic obstructive airways disease Priority: Secondary Status: Acute (3) Hypertension Priority: Secondary Status: Chronic Qualifiers: Hypertension type: essential hypertension Qualified Code(s): I10 - Essential (primary) hypertension (4) Anemia Priority: Secondary Status: Acute Qualifiers: Anemia type: unspecified type Qualified Code(s): D64.9 - Anemia, unspecified (5) Elevated brain natriuretic peptide (BNP) level Priority: Secondary Status: Acute Hospital course: Ms. uHff is a 77 year old female who came to emergency room stating she has had cough for approximately 2 weeks with production of yellow sputum. She denies hemoptysis. She reports the morning of September 08 she developed lower oxygen saturation by her home pulse oximetry. She had some soreness in her back and lateral chest area. She did not improve so came to emergency room on September 09. Workup showed significant leukocytosis with left shift and CT evidence of right lower lobe pneumonia with peripheral nodular opacifications in bilateral lower lobes. She was admitted to [facility] floor for ongoing care needs. Initial orders were written by the emergency room physician. I saw her on September 10 and performed a history and physical. She was started on Rocephin and Zithromax with lactobacillus. WBC initially improved to 18.3 by September 12. There was no further improvement noted on September 13 so I changed her antibiotics to Azactam and doxycycline. She felt further improved on September 14 but was still dyspneic and weak. It was agreed she should be discharged to swing bed for ongoing IV antibiotics and rehabilitation therapy. BN peptide elevation worsened during hospitalization despite use of Bumex and isosorbide. Echocardiogram was ordered with report pending at time of discharge and to swing bed. Anemia testing showed iron 35, transferrin saturation 12%, transferrin 207, ferritin 173, B12 1076, and folate 20.4. She was started on oral ferrous sulfate with vitamin C. Lopressor dose was increased and Norvasc was discontinued to improve blood pressure and lessen edema. She will continue this regimen in swing bed. On September 14 she was stable for discharge to swing bed for ongoing medical and rehabilitation therapy. - Time Spent with Patient Total time spent providing and/or coordinating discharge services: - Discharge Medications Home Medications: Budesonide/Formoterol 160/4.5 [Symbicort] 2 puff IH BIDR 03/09/15 [History] LORazepam [Ativan] 0.5 mg PO QID 03/09/15 [History] Tiotropium [Spiriva] 18 mcg IH 0700 03/09/15 [History] Aspirin [Adult Low Dose Aspirin EC] 81 mg PO 3XW 08/12/15 [History] Acetylcysteine [Nac] 600 mg PO BID 09/09/17 [History] Albuterol Sulfate [Ventolin Hfa] 18 gm IH AD 09/09/17 [History] Atorvastatin [Lipitor] 20 mg PO DAILY 09/09/17 [History] Benzonatate [Tessalon] 100 mg PO TID 09/09/17 [History] Acetaminophen [Tylenol] 650 mg PO Q6H PRN tablet 09/14/17 [Rx] Albuterol Neb [Proventil Neb] 2.5 mg IH Q2H PRN inhsol 09/14/17 [Rx] Ascorbic Acid [Vitamin C] 500 mg PO 0630 tablet 09/14/17 [Rx] Aztreonam [Azactam] 2,000 mg IVP Q8H vial 09/14/17 [Rx] Bisacodyl [Dulcolax] 10 mg RC DAILY PRN supp.rect 09/14/17 [Rx] Bumetanide [Bumex] 1 mg PO BIDDIURETIC tablet 09/14/17 [Rx] Docusate [Colace] 100 mg PO BID PRN capsule 09/14/17 [Rx] Doxycycline 100 mg IVPB Q12HR vial 09/14/17 [Rx] Enoxaparin [Lovenox] 40 mg SQ 0600 syringe 09/14/17 [Rx] Ferrous Sulfate 325 mg PO 0630 tablet 09/14/17 [Rx] GuaiFENesin/Dextromethorphan [Robitussin/Dm] 10 ml PO Q6HR udc 09/14/17 [Rx] Isosorbide MONOnitrate (24 HR) [Imdur] 60 mg PO DAILY tab.er.24h 09/14/17 [Rx] Lactobacillus [Culturelle] 1 each PO BID cap.sprink 09/14/17 [Rx] Losartan [Cozaar] 50 mg PO DAILY tablet 09/14/17 [Rx] MOM Conc [MILK OF MAGNESIA conc] 10 ml PO Q48H ud.liq 09/14/17 [Rx] Metoprolol [Lopressor] 50 mg PO BID tablet 09/14/17 [Rx] Nicotine Patch [Nicoderm] 21 mg TD DAILY patch.td24 09/14/17 [Rx] Allergies/Adverse Reactions: 3 Allergy/AdvReac Type Severity Reaction Status Date / Time codeine Allergy Rash Verified 09/09/17 13:32 levofloxacin [From Levaquin] Allergy Joint Pain Verified 09/09/17 13:32 Date of admission: 09/10/17 12:36 Primary care physician: Chung Henderson MD Consults: 09/12/17 11:14 Consult to Physical Therapy [CONS] Routine Comment: Evaluate, develop and implement POC Reason for Consult: family requesting home PT Does patient have active BEDREST order?: No Is patient medically & hemodynamically stable?: Yes 09/12/17 11:16 Consult to Tire Fabricator [CONS] Routine Reason for SW Consult: family wanting pt to be DC with home PT 09/12/17 11:17 Consult to Occupational Therapy [CONS] Routine Comment: Evaluate, develop and implement POC Reason for Consult: family requesting home PT/OT Does patient have active BEDREST order?: No Is patient medically & hemodynamically stable?: Yes Patient assessed for mobility or mobilized this visit?: No - Constitutional Vitals: Temp Pulse Resp BP Pulse Ox 97.5 F L 98 14 149/81 92 09/14/17 05:44 09/14/17 05:44 09/14/17 10:17 09/14/17 05:44 09/14/17 10:17 - Patient Status Disposition: Transfer Hospital Swing Bed Condition: Fair Functional capacity at discharge: uses cane/walker - Discharge Instructions - Diet and Activity Activity: as per physical therapy Diet: regular diet - VTE Reasons for not Prescribing Prophylaxis: Treatment not Indicated - Low risk for VTE
== END 2017-09-14 12:30 | disposition other institution (70) | DRG 194 ==
LOC: INPPIK 13:31 → EMEROOPIK 13:31 → INPPIK 19:45
PROVIDERS: ADMIT Internal Medicine; ATTEND Internal Medicine

== ENCOUNTER 2017-09-14 12:17 | Inpatient (IN) ==
[2017-09-14] MEDS ORDERED: Bisacodyl 10 MG RECTAL SUPPOSITORY RC PRN (12:51)
[2017-09-14] MEDS ORDERED: Acetaminophen 325 MG TABLET PO PRN (12:51)
[2017-09-14] MEDS: Benzonatate 100 MG CAPSULE PO SCH ×2 (13:59→19:55)
[2017-09-14] MEDS: *HR* LORazepam 0.5 MG TABLET PO SCH ×3 (13:59→19:55)
[2017-09-14] MEDS: MOM Conc 10 ML UD.LIQ PO SCH (13:59)
[2017-09-14] MEDS: Bumetanide 1 MG TABLET PO SCH (17:05)
[2017-09-14] MEDS: Aztreonam 2,000 MG in Water for inj. (sterile) 20 ML IVP SCH (17:30)
[2017-09-14] MEDS: Doxycycline 100 MG in 0.9 % Sodium Chloride Mini Bag 100 ML IVPB SCH (17:32)
[2017-09-14] MEDS ORDERED: Doxycycline 100 MG VIAL IVPB SCH (18:00)
[2017-09-14] MEDS: Lactobacillus 1 EACH CAP.SPRINK PO SCH (19:55)
[2017-09-14] MEDS: Budesonide/Formoterol 160/4.5 MDI IH SCH (21:12)
[2017-09-14] MEDS: Albuterol 2.5 MG/3 ML NEBULIZER IH PRN (21:19)
[2017-09-15] MEDS: Aztreonam 2,000 MG in Water for inj. (sterile) 20 ML IVP SCH ×4 (01:09→19:44)
[2017-09-15] MEDS: Doxycycline 100 MG in 0.9 % Sodium Chloride Mini Bag 100 ML IVPB SCH ×2 (06:00→18:10)
[2017-09-15] MEDS: Ascorbic Acid 500 MG TABLET PO SCH (06:01)
[2017-09-15] MEDS: *HR* Enoxaparin 40 MG/0.4 ML SYRINGE SQ SCH (06:01)
[2017-09-15] MEDS: Tiotropium 18 MCG inhalation IH SCH (07:41)
[2017-09-15] MEDS: Albuterol 2.5 MG/3 ML NEBULIZER IH PRN (07:41)
[2017-09-15] MEDS: Lactobacillus 1 EACH CAP.SPRINK PO SCH ×2 (08:13→21:13)
[2017-09-15] MEDS: Bumetanide 1 MG TABLET PO SCH ×2 (08:14→17:03)
[2017-09-15] MEDS: Benzonatate 100 MG CAPSULE PO SCH ×3 (08:14→21:13)
[2017-09-15] MEDS: *HR* LORazepam 0.5 MG TABLET PO SCH ×4 (08:14→21:13)
[2017-09-15] MEDS: Isosorbide MONOnitrate (24 HR) 60 MG TAB.ER.24H PO SCH (08:14)
[2017-09-15] MEDS: Nicotine 21 MG PATCH.TD24 TD SCH (08:14)
[2017-09-15] MEDS: Budesonide/Formoterol 160/4.5 MDI IH SCH ×2 (10:06→21:04)
--- NOTE | 2017-09-15 15:47 | Internal Med Progress Note ---
Date of Encounter: 09/15/17 Time of Encounter: 15:35 - Assessment and plan (1) Community acquired pneumonia Current Visit: No Status: Acute Assessment and plan: September 15. Continue Azactam and doxycycline with lactobacillus.We will check labs in a.m. Qualifiers: Laterality: right Lung location: lower lobe of lung Qualified Code(s): J18.1 - Lobar pneumonia, unspecified organism (2) CHF (congestive heart failure) Current Visit: Yes Status: Chronic Assessment and plan: September 15. Continue Bumex, Imdur, Cozaar, and Lopressor Qualifiers: Heart failure type: systolic Heart failure chronicity: chronic Qualified Code(s): I50.22 - Chronic systolic (congestive) heart failure (3) Hypertension Current Visit: No Status: Chronic Assessment and plan: September 15. Continue Cozaar, Bumex, and Lopressor Qualifiers: Hypertension type: essential hypertension Qualified Code(s): I10 - Essential (primary) hypertension (4) Anemia Current Visit: No Status: Acute Assessment and plan: September 15. Continue ferrous sulfate with vitamin C. Qualifiers: Anemia type: unspecified type Qualified Code(s): D64.9 - Anemia, unspecified - Subjective Interval history: September 15. She was hospitalized in acute-care September 09- after presenting with dyspnea. She was found to have right lower lobe pneumonia with peripheral nodular opacifications in bilateral lower lobes. She received antibiotics and had clinical improvement. It was felt she would benefit from further intervention in swing bed. Echocardiogram was done to further evaluate her dyspnea and edema. Reports showed LVEF of 30% with indeterminate diastolic function. There was mild mitral regurgitation and mild aortic sclerosis but no other significant valvular abnormality. There was an echo density noted in the LV apex possibly representing an LV false tendon with recommendation for repeat study with contrast to evaluate for LV thrombus. She was started on ferrous sulfate with vitamin C for anemia. She has no new complaints today and feels better. - Constitutional Vitals: Temp Pulse Resp BP Pulse Ox 97.9 F 90 14 108/65 91 09/15/17 07:20 09/15/17 07:20 09/15/17 10:06 09/15/17 07:20 09/15/17 13:09 Exam: She is resting comfortably in a chair at bedside. Her lungs show no wheezes or crackles. Heart is regular rate 92/m. Oxygen saturation 92%. Extremity show no pitting edema. I reviewed her medications and past lab results. Consult Discharge Plan - Plan Referrals: Chung Henderson MD [Primary Care Provider] - 1 week
[2017-09-16] MEDS: Aztreonam 2,000 MG in Water for inj. (sterile) 20 ML IVP SCH ×3 (04:16→18:08)
[2017-09-16] MEDS: Doxycycline 100 MG in 0.9 % Sodium Chloride Mini Bag 100 ML IVPB SCH ×2 (05:39→18:22)
[2017-09-16] MEDS: *HR* Enoxaparin 40 MG/0.4 ML SYRINGE SQ SCH (05:40)
[2017-09-16] MEDS: Ascorbic Acid 500 MG TABLET PO SCH (05:41)
[2017-09-16 06:25] LABS: Basophils % 0.3 %; Eosinophils # 0.7 K/mcL (0.0-0.6); Eosinophils % 4.6 %; Hematocrit 33.2 % (35.3-44.9); Hemoglobin 10.4 g/dL (11.5-15.4); Immature Granulocytes % 1.6 % (0-4); Lymphocytes # 1.7 K/mcL (0.6-4.6); Lymphocytes % 11.9 %; Mean Corpuscular HGB Conc 31.3 g/dL (31.6-35.5); Mean Corpuscular Hemoglobin 27.7 pg (28.0-33.3); Mean Corpuscular Volume 88.3 fL (83.0-100.0); Mean Platelet Volume 9.7 fL (9.4-12.4); Monocytes # 1.2 K/mcL (0.0-1.3); Monocytes % 8.3 %; Neutrophils # 10.6 K/mcL (1.6-8.9); Platelet Count 393 K/mcL (140-400); Red Blood Count 3.76 M/mcL (3.82-4.97); Red Cell Distribution Width 14.3 % (11.5-14.5); Segmented Neutrophils % 73.3 %
[2017-09-16 06:44] LABS: BUN/Creatinine Ratio 22 (6-26); Blood Urea Nitrogen 13 mg/dL (8-23); Calcium 8.7 mg/dL (8.6-10.3); Carbon Dioxide 37 mEq/L (23-29); Chloride 93 mEq/L (98-107); Glucose 127 mg/dL (70-105); Osmolality,Calculated 282 (280-300); Potassium 3.6 mEq/L (3.5-5.1); Sodium 135 mEq/L (136-145); eGFR For African Americans > 60 (> 60); eGFR For Non-African Americans > 60 (> 60)
[2017-09-16] MEDS: Isosorbide MONOnitrate (24 HR) 60 MG TAB.ER.24H PO SCH (08:45)
[2017-09-16] MEDS: Nicotine 21 MG PATCH.TD24 TD SCH (08:46)
[2017-09-16] MEDS: Aspirin Enteric Coated 81 MG Tablet PO SCH (08:46)
[2017-09-16] MEDS: *HR* LORazepam 0.5 MG TABLET PO SCH ×4 (08:46→21:36)
[2017-09-16] MEDS: Lactobacillus 1 EACH CAP.SPRINK PO SCH ×2 (08:46→21:36)
[2017-09-16] MEDS: Bumetanide 1 MG TABLET PO SCH ×2 (08:47→16:32)
[2017-09-16] MEDS ORDERED: Perflutren Lipid Microsphere 1.3 ML in 0.9 % Sodium Chloride 8.7 ML IVP ONE (08:48)
[2017-09-16] MEDS: Tiotropium 18 MCG inhalation IH SCH (09:15)
[2017-09-16] MEDS: Albuterol 2.5 MG/3 ML NEBULIZER IH PRN ×2 (09:15→23:35)
[2017-09-16] MEDS: Benzonatate 100 MG CAPSULE PO SCH ×3 (09:23→21:36)
[2017-09-16] MEDS: Budesonide/Formoterol 160/4.5 MDI IH SCH ×3 (10:31→23:34)
[2017-09-16] MEDS: MOM Conc 10 ML UD.LIQ PO SCH (12:16)
[2017-09-17] MEDS: Aztreonam 2,000 MG in Water for inj. (sterile) 20 ML IVP SCH ×3 (01:24→17:55)
[2017-09-17] MEDS: Doxycycline 100 MG in 0.9 % Sodium Chloride Mini Bag 100 ML IVPB SCH ×2 (06:11→19:07)
[2017-09-17] MEDS: Ascorbic Acid 500 MG TABLET PO SCH (06:13)
[2017-09-17] MEDS: *HR* Enoxaparin 40 MG/0.4 ML SYRINGE SQ SCH (06:13)
[2017-09-17] MEDS: Lactobacillus 1 EACH CAP.SPRINK PO SCH ×2 (07:50→21:47)
[2017-09-17] MEDS: Nicotine 21 MG PATCH.TD24 TD SCH (07:51)
[2017-09-17] MEDS: Isosorbide MONOnitrate (24 HR) 60 MG TAB.ER.24H PO SCH (07:51)
[2017-09-17] MEDS: Bumetanide 1 MG TABLET PO SCH ×2 (07:51→17:55)
[2017-09-17] MEDS: *HR* LORazepam 0.5 MG TABLET PO SCH ×4 (07:51→21:47)
[2017-09-17] MEDS: Benzonatate 100 MG CAPSULE PO SCH ×3 (07:51→21:47)
[2017-09-17] MEDS: Albuterol 2.5 MG/3 ML NEBULIZER IH PRN ×4 (09:35→22:37)
[2017-09-17] MEDS: Budesonide/Formoterol 160/4.5 MDI IH SCH ×2 (09:40→22:35)
[2017-09-17] MEDS: Tiotropium 18 MCG inhalation IH SCH (09:42)
--- NOTE | 2017-09-17 14:41 | Internal Med Progress Note ---
Date of Encounter: 09/17/17 Time of Encounter: 12:10 - Assessment and plan (1) Community acquired pneumonia Current Visit: No Status: Acute Assessment and plan: September 15. Continue Azactam and doxycycline with lactobacillus.We will check labs in a.m. September 17. Continue present treatment. Anticipate discharge home tomorrow. Qualifiers: Laterality: right Lung location: lower lobe of lung Qualified Code(s): J18.1 - Lobar pneumonia, unspecified organism (2) CHF (congestive heart failure) Current Visit: Yes Status: Chronic Assessment and plan: September 15. Continue Bumex, Imdur, Cozaar, and Lopressor September 17. BN peptide decreased to 379. Continue present regimen. Qualifiers: Heart failure type: systolic Heart failure chronicity: chronic Qualified Code(s): I50.22 - Chronic systolic (congestive) heart failure (3) Hypertension Current Visit: No Status: Chronic Assessment and plan: September 15. Continue Cozaar, Bumex, and Lopressor Qualifiers: Hypertension type: essential hypertension Qualified Code(s): I10 - Essential (primary) hypertension (4) Anemia Current Visit: No Status: Acute Assessment and plan: September 15. Continue ferrous sulfate with vitamin C. Qualifiers: Anemia type: unspecified type Qualified Code(s): D64.9 - Anemia, unspecified - Subjective Interval history: September 15. She was hospitalized in acute-care September 09- after presenting with dyspnea. She was found to have right lower lobe pneumonia with peripheral nodular opacifications in bilateral lower lobes. She received antibiotics and had clinical improvement. It was felt she would benefit from further intervention in swing bed. Echocardiogram was done to further evaluate her dyspnea and edema. Reports showed LVEF of 30% with indeterminate diastolic function. There was mild mitral regurgitation and mild aortic sclerosis but no other significant valvular abnormality. There was an echo density noted in the LV apex possibly representing an LV false tendon with recommendation for repeat study with contrast to evaluate for LV thrombus. She was started on ferrous sulfate with vitamin C for anemia. She has no new complaints today and feels better. September 17. She has no new complaints and feels significantly improved. - Constitutional Vitals: Temp Pulse Resp BP Pulse Ox 98 F 93 19 135/80 92 09/17/17 07:01 09/17/17 07:01 09/17/17 09:00 09/17/17 07:01 09/17/17 09:00 Exam: She is sitting in a chair at bedside resting comfortably and appears in no acute distress. Her affect is bright and cheerful. She is not dyspneic. Extremities show no edema. I reviewed her medications. I reviewed pertinent lab results and her echocardiogram report with her. Internal Medicine: Result - Labs CBC & Chem 7: 09/16/17 06:10 09/16/17 06:10 - Impressions Impressions Echocardiogram Limited Views 09/16/17 15:45 Impressions: LVEF 30%. Severe global left ventricular systolic dysfunction. There is no LV thrombus. Findings: Study Quality * Technically adequate exam. ECG Findings * Normal sinus rhythm. Left Ventricle * LVEF 30%. * Severe global left ventricular systolic dysfunction. * There is no LV thrombus. Consult Discharge Plan - Plan Referrals: Chung Henderson MD [Primary Care Provider] - 1 week
[2017-09-18] MEDS: Aztreonam 2,000 MG in Water for inj. (sterile) 20 ML IVP SCH ×2 (02:27→09:31)
[2017-09-18] MEDS: *HR* Enoxaparin 40 MG/0.4 ML SYRINGE SQ SCH (06:09)
[2017-09-18] MEDS: Doxycycline 100 MG in 0.9 % Sodium Chloride Mini Bag 100 ML IVPB SCH (06:09)
[2017-09-18] MEDS: Ascorbic Acid 500 MG TABLET PO SCH (06:09)
[2017-09-18 07:11] VITALS: BP 110/67
[2017-09-18] MEDS: Albuterol 2.5 MG/3 ML NEBULIZER IH PRN (08:24)
[2017-09-18] MEDS: Budesonide/Formoterol 160/4.5 MDI IH SCH (08:44)
[2017-09-18] MEDS: Tiotropium 18 MCG inhalation IH SCH (08:45)
[2017-09-18] MEDS: Bumetanide 1 MG TABLET PO SCH (09:22)
[2017-09-18] MEDS: Lactobacillus 1 EACH CAP.SPRINK PO SCH (09:22)
--- NOTE | 2017-09-18 09:22 | Discharge Summary ---
Date of Encounter: 09/18/17 Time of Encounter: 09:05 - Discharge Diagnosis (1) Community acquired pneumonia Priority: Primary Status: Acute Qualifiers: Laterality: right Lung location: lower lobe of lung Qualified Code(s): J18.1 - Lobar pneumonia, unspecified organism (2) CHF (congestive heart failure) Priority: Secondary Status: Chronic Qualifiers: Heart failure type: systolic Heart failure chronicity: chronic Qualified Code(s): I50.22 - Chronic systolic (congestive) heart failure (3) Hypertension Priority: Secondary Status: Chronic Qualifiers: Hypertension type: essential hypertension Qualified Code(s): I10 - Essential (primary) hypertension (4) Anemia Priority: Secondary Status: Acute Qualifiers: Anemia type: unspecified type Qualified Code(s): D64.9 - Anemia, unspecified Hospital course: Ms. Huff is a 77 year old female who was hospitalized in acute-care September 09 - after presenting with dyspnea. She was found to have right lower lobe pneumonia with peripheral nodular opacifications in bilateral lower lobes. She received antibiotics and had clinical improvement. It was felt she would benefit from further intervention in swing bed. She continued IV Azactam and doxycycline with lactobacillus in swing bed. WBC improved to 14.4 with resolution of left shift by 09/16/2017. BN peptide improved to 379. Her dyspnea significantly lessened. She will not receive antibiotics at discharge. Repeat echocardiogram was done to further evaluate for left apical thrombus. No thrombus was seen. She will continue with aspirin. She will continue present treatment for heart failure with isosorbide, Cozaar, Bumex and Toprol XL. She progressed well in therapy and on September 18 was stable for discharge home. She will follow with her PCP Dr. Chung Henderson within 1 week. She will have home health services ordered. - Time Spent with Patient Total time spent providing and/or coordinating discharge services: - Discharge Medications Prescriptions: Ascorbic Acid [Vitamin C] 500 mg PO DAILY #30 tablet Bumetanide 0.5 mg PO DAILY #30 tablet Ferrous Sulfate 325 mg PO DAILY #30 tablet Isosorbide MONOnitrate (24 HR) [Imdur] 60 mg PO DAILY #30 tab.er.24h Losartan Potassium [Cozaar] 50 mg PO DAILY #30 tab Metoprolol Succinate 100 mg PO DAILY #30 tab.er.24h Home Medications: Budesonide/Formoterol 160/4.5 [Symbicort] 2 puff IH BIDR 03/09/15 [History] LORazepam [Ativan] 0.5 mg PO QID 03/09/15 [History] Tiotropium [Spiriva] 18 mcg IH 0700 03/09/15 [History] Aspirin [Adult Low Dose Aspirin EC] 81 mg PO 3XW 08/12/15 [History] Acetylcysteine [Nac] 600 mg PO BID 09/09/17 [History] Albuterol Sulfate [Ventolin Hfa] 18 gm IH AD 09/09/17 [History] Atorvastatin [Lipitor] 20 mg PO DAILY 09/09/17 [History] Benzonatate [Tessalon] 100 mg PO TID 09/09/17 [History] Acetaminophen [Tylenol] 650 mg PO Q6H PRN tablet 09/14/17 [Rx] Bisacodyl [Dulcolax] 10 mg RC DAILY PRN supp.rect 09/14/17 [Rx] Docusate [Colace] 100 mg PO BID PRN capsule 09/14/17 [Rx] Enoxaparin [Lovenox] 40 mg SQ 0600 syringe 09/14/17 [Rx] MOM Conc [MILK OF MAGNESIA conc] 10 ml PO Q48H ud.liq 09/14/17 [Rx] Nicotine Patch [Nicoderm] 21 mg TD DAILY patch.td24 09/14/17 [Rx] Ascorbic Acid [Vitamin C] 500 mg PO DAILY #30 tablet 09/18/17 [Rx] Bumetanide 0.5 mg PO DAILY #30 tablet 09/18/17 [Rx] Ferrous Sulfate 325 mg PO DAILY #30 tablet 09/18/17 [Rx] Isosorbide MONOnitrate (24 HR) [Imdur] 60 mg PO DAILY #30 tab.er.24h 09/18/17 [ Rx] Losartan Potassium [Cozaar] 50 mg PO DAILY #30 tab 09/18/17 [Rx] Metoprolol Succinate 100 mg PO DAILY #30 tab.er.24h 09/18/17 [Rx] Allergies/Adverse Reactions: 3 Allergy/AdvReac Type Severity Reaction Status Date / Time codeine Allergy Rash Verified 09/09/17 13:32 levofloxacin [From Levaquin] Allergy Joint Pain Verified 09/09/17 13:32 Date of admission: 09/14/17 12:58 Primary care physician: Chung Henderson MD Consults: 09/14/17 12:44 Consult to Physical Therapy [CONS] Routine Comment: Evaluate, develop and implement POC Reason for Consult: Evaluate, develop and implement POC Does patient have active BEDREST order?: No Is patient medically & hemodynamically stable?: Yes 09/14/17 12:45 Consult to Occupational Therapy [CONS] Routine Comment: Evaluate, develop and implement POC Reason for Consult: Evaluate, develop and implement POC Does patient have active BEDREST order?: No Is patient medically & hemodynamically stable?: Yes 09/14/17 13:02 Consult to Mechanical Spreader Operator [CONS] Routine Reason for SW Consult: family wanting pt to be DC home with PT - Constitutional Vitals: Temp Pulse Resp BP Pulse Ox 98.1 F 88 18 110/67 92 09/18/17 07:09 09/18/17 07:09 09/18/17 08:27 09/18/17 07:09 09/18/17 08:27 - Patient Status Disposition: Home Health Service Functional capacity at discharge: uses cane/walker Overall status at discharge: patient is progressing back to baseline - Discharge Instructions Follow Up With: Chung Henderson MD [Primary Care Provider] - 1 week - Diet and Activity Activity: as per physical therapy Diet: advance to your usual diet
[2017-09-18] MEDS: Aspirin Enteric Coated 81 MG Tablet PO SCH (09:23)
[2017-09-18] MEDS: *HR* LORazepam 0.5 MG TABLET PO SCH (09:23)
[2017-09-18] MEDS: Isosorbide MONOnitrate (24 HR) 60 MG TAB.ER.24H PO SCH (09:23)
[2017-09-18] MEDS: Benzonatate 100 MG CAPSULE PO SCH (09:29)
--- NOTE | 2017-09-18 09:29 | Physician Discharge Referral ---
Home Health/Hosp Referral Info Transfer to: Home Health Attending Provider: Tenzin Provider in Charge Post Discharge: PCP (Chung Henderson M.D.) - Diagnosis (1) Community acquired pneumonia Priority: Primary Status: Acute (2) CHF (congestive heart failure) Priority: Secondary Status: Chronic (3) Hypertension Priority: Secondary Status: Chronic (4) Anemia Priority: Secondary Status: Acute - Respiratory Orders Oxygen / L per min (2 L/m nasal cannula 24/7) Smoking Cessation: Smoking cessation has been advised. For more information, call the [place] Tobacco Quit Line at 7-581-BPNH-NOW. - Diet/Nutrition Diet/Nutrition Orders: Regular - Activity Activity Orders: Walker - Services Needed Following services are medically necessary services: Nursing, Home Health Aide, Physical Therapy, Occupational Therapy - Transfer Medications Prescriptions: Ascorbic Acid [Vitamin C] 500 mg PO DAILY #30 tablet Bumetanide 0.5 mg PO DAILY #30 tablet Ferrous Sulfate 325 mg PO DAILY #30 tablet Isosorbide MONOnitrate (24 HR) [Imdur] 60 mg PO DAILY #30 tab.er.24h Losartan Potassium [Cozaar] 50 mg PO DAILY #30 tab Metoprolol Succinate 100 mg PO DAILY #30 tab.er.24h Home Medications: Budesonide/Formoterol 160/4.5 [Symbicort] 2 puff IH BIDR 03/09/15 [History] LORazepam [Ativan] 0.5 mg PO QID 03/09/15 [History] Tiotropium [Spiriva] 18 mcg IH 0700 03/09/15 [History] Aspirin [Adult Low Dose Aspirin EC] 81 mg PO 3XW 08/12/15 [History] Acetylcysteine [Nac] 600 mg PO BID 09/09/17 [History] Albuterol Sulfate [Ventolin Hfa] 18 gm IH AD 09/09/17 [History] Atorvastatin [Lipitor] 20 mg PO DAILY 09/09/17 [History] Benzonatate [Tessalon] 100 mg PO TID 09/09/17 [History] Acetaminophen [Tylenol] 650 mg PO Q6H PRN tablet 09/14/17 [Rx] Bisacodyl [Dulcolax] 10 mg RC DAILY PRN supp.rect 09/14/17 [Rx] Docusate [Colace] 100 mg PO BID PRN capsule 09/14/17 [Rx] Enoxaparin [Lovenox] 40 mg SQ 0600 syringe 09/14/17 [Rx] MOM Conc [MILK OF MAGNESIA conc] 10 ml PO Q48H ud.liq 09/14/17 [Rx] Nicotine Patch [Nicoderm] 21 mg TD DAILY patch.td24 09/14/17 [Rx] Ascorbic Acid [Vitamin C] 500 mg PO DAILY #30 tablet 09/18/17 [Rx] Bumetanide 0.5 mg PO DAILY #30 tablet 09/18/17 [Rx] Ferrous Sulfate 325 mg PO DAILY #30 tablet 09/18/17 [Rx] Isosorbide MONOnitrate (24 HR) [Imdur] 60 mg PO DAILY #30 tab.er.24h 09/18/17 [ Rx] Losartan Potassium [Cozaar] 50 mg PO DAILY #30 tab 09/18/17 [Rx] Metoprolol Succinate 100 mg PO DAILY #30 tab.er.24h 09/18/17 [Rx] Allergies/Adverse Reactions: 3 Allergy/AdvReac Type Severity Reaction Status Date / Time codeine Allergy Rash Verified 09/09/17 13:32 levofloxacin [From Levaquin] Allergy Joint Pain Verified 09/09/17 13:32 Certification: Further, I certify that my clinical findings support that this patient is homebound (i.e. absences from home require considerable and taxing effort and are for medical reasons or [employer] services or infrequently or short duration when for other reasons) because: Homebound Reason: Leaving home requires considerable and taxing effort due to condition (Severe COPD with hypoxemia) Attestation: My signature below is to certify that this patient is under my care and that I, or nurse practitioner, or a physician's plumber assistant working with me, has a face-to -face encounter with this patient.
[2017-09-18] MEDS: Nicotine 21 MG PATCH.TD24 TD SCH (09:30)
== END 2017-09-18 10:10 | disposition home health service (06) | DRG 194 ==
LOC: INPPIK 12:58
PROVIDERS: ADMIT Internal Medicine; ATTEND Internal Medicine

== ENCOUNTER 2017-11-18 15:42 | Inpatient (IN) ==
[2017-11-18] MEDS ORDERED: Albuterol 2.5 MG/3 ML NEBULIZER IH ONE (16:08)
[2017-11-18] MEDS ORDERED: Ipratropium/Albuterol Neb 3 ML IH ONE (16:08)
[2017-11-18] MEDS ORDERED: methylPREDNISolone 125 MG/2 ML VIAL IVP ONE (16:08)
[2017-11-18] MEDS ORDERED: Furosemide 40 MG/4 ML VIAL IVP ONE (16:08)
--- NOTE | 2017-11-18 16:12 | Emergency Department Note ---
Disposition Clinical Impression: CHF (congestive heart failure), COPD (chronic obstructive pulmonary disease) with acute bronchitis Disposition: Transfer Short-Term Hosp Condition: Fair Instructions: Heart Failure (ED) Referrals: Chung Henderson MD [Primary Care Provider] - Forms: ED Satisfaction Letter Time of Disposition: 17:09 ( WILL ADMIT) SOB HPI - General Chief Complaint: ED Shortness of Breath/Dyspnea Stated Complaint: INCREASED SHORTNESS OF BREATH Time Seen by Provider: 11/18/17 16:10 Source: patient Mode of arrival: wheelchair Limitations: no limitations Nursing Notes Reviewed: Yes Vital Signs Reviewed: Yes - History of Present Illness 77-year-old female presented to the emergency department via private car by complaints of shortness of breath, productive cough. Patient has known COPD and congestive heart failure, and wears 3 L of oxygen at all times. She does appear to be in mild respiratory distress, having difficulty forming complete sentences due to her shortness of breath. Minimal exertion causes her to become more short-winded. Patient denies fever or rigors chills. She also denies any heaviness or pressure in the chest. Pt Subjective Complaint: shortness of breath, cough Onset (ago): Just [employer] Context: occurred during exertion Severity: moderate Consistency/Duration: intermittent Improves with: oxygen, rest, bronchodilators Worsens with: lying flat Known history of: COPD, congestive heart failure Associated symptoms: Reports: cough, orthopnea. Denies: chest pain, pain with inspiration, fever, wheezing, sputum production, lower extremity pain Treatment prior to arrival: oxygen Cough present: Yes Cough Description: Voluntary Cough Frequency: Intermittent - Related Data Home Medications Medication Instructions Recorded Confirmed LORazepam [Ativan] 0.5 mg PO QID PRN 03/09/15 11/18/17 Tiotropium [Spiriva] 18 mcg IH 0700 03/09/15 11/18/17 Aspirin [Adult Low Dose Aspirin EC] 81 mg PO 3XW 08/12/15 11/18/17 Acetylcysteine [Nac] 600 mg PO BID 09/09/17 11/18/17 Albuterol Sulfate [Ventolin Hfa] 18 gm IH AD 09/09/17 11/18/17 Atorvastatin [Lipitor] 20 mg PO DAILY 09/09/17 11/18/17 Multivit-Min/Iron/Folic/Lutein 1 each PO DAILY 10/02/17 11/18/17 [Centrum Silver Women Tablet] Acetaminophen [Tylenol] 500 mg PO DAILY 11/18/17 11/18/17 Azithromycin [Zithromax] 250 mg PO QMWF 11/18/17 11/18/17 Budesonide/Formoterol 160/4.5 2 puff IH BIDR 11/18/17 11/18/17 [Symbicort 160/4.5] L. Acidophilus/Pectin, [place] 1 each PO DAILY 11/18/17 11/18/17 [Acidophilus Probiotic Capsule] Previous Rx's Medication Instructions Recorded Nicotine Patch [Nicoderm] 21 mg TD DAILY patch.td24 09/14/17 Ascorbic Acid [Vitamin C] 500 mg PO DAILY #30 tablet 09/18/17 Bumetanide 0.5 mg PO DAILY #30 tablet 09/18/17 Ferrous Sulfate 325 mg PO DAILY #30 tablet 09/18/17 Losartan Potassium [Cozaar] 50 mg PO DAILY #30 tab 09/18/17 Metoprolol Succinate 100 mg PO DAILY #30 tab.er.24h 09/18/17 Allergies Allergy/AdvReac Type Severity Reaction Status Date / Time codeine Allergy Rash Verified 09/09/17 13:32 levofloxacin [From Levaquin] Allergy Joint Pain Verified 09/09/17 13:32 All systems ED: reviewed and negative except as stated. Respiratory: Reports: cough, dyspnea Past Medical History - Past Medical History Medical history: Reports: cardiomyopathy, CHF, COPD, hyperlipidemia, hypertension Surgical history: Reports: appendectomy, cataract Psychiatric history: Reports: anxiety - Social History Smoking Status: Former smoker Smokeless Tobacco Status: No Alcohol use: Reports: none Drug use: Reports: none Physical Exam - General Limitations: no limitations General appearance: alert - Head Head exam: atraumatic, normocephalic, normal inspection - Eye Eye exam: Present: normal appearance, PERRL, EOMI - Expanded Eye Exam Pupils: Left: reactive - ENT ENT exam: normal exam, normal oropharynx, mucous membranes moist - Expanded ENT Exam External ear exam: Present: normal external inspection Mouth exam: Present: normal external inspection Teeth exam: Present: normal inspection Throat exam: Present: normal inspection - Neck Neck exam: Present: normal inspection, full ROM, trachea midline - Chest Chest inspection: Present: normal inspection, symmetric chest wall rise - Respiratory Respiratory exam: Present: wheezes, accessory muscle use (Decreased breath sounds audible bilaterally) - Cardiovascular Cardiovascular exam: Present: regular rate, normal rhythm, normal heart sounds - Abdominal Exam Abdominal exam: Present: soft, Non-Tender. Absent: tenderness, distention, guarding, rebound, rigidity - Extremities Exam Extremities exam: Present: pedal edema, other (Bilateral lower extremity edema 1 over 4 bilaterally). Absent: tenderness - Expanded Upper Extremity Exam Shoulder exam: Present: normal inspection, full ROM Arm exam: Present: normal inspection, full ROM Elbow exam: Present: normal inspection, full ROM Forearm/Wrist exam: Present: normal inspection, full ROM Hand exam: Present: normal inspection, full ROM Vascular exam: Normal: capillary refill, radial pulse - Expanded Lower Extremity Exam Hip/Pelvis exam: Present: normal inspection, full ROM Upper leg exam: Present: normal inspection, full ROM Knee exam: Present: normal inspection, full ROM Lower leg exam: Present: normal inspection, full ROM Ankle exam: Present: normal inspection, full ROM Foot/toe exam: Present: normal inspection, full ROM Neurovascular/Tendon exam: Absent: motor deficit, sensory deficit, tendon deficit - Back Exam Back exam: Present: normal inspection, full ROM. Absent: tenderness - Neurological Exam Neurological exam: Present: alert, oriented X3 - Expanded Neurological Exam Patient oriented to: Present: person, place, time Coma Scale Eye Opening: Spontaneous Coma Scale Motor Response: Obeys Commands Coma Scale Verbal Response: Oriented Coma Scale Total: 15 - Psychiatric Psychiatric exam: Present: normal affect, normal mood - Skin Skin exam: Present: warm, dry, intact, normal color Course Vital Signs Temperature 98.0 F 11/18/17 15:54 Pulse Rate 88 11/18/17 15:54 Respiratory Rate 20 11/18/17 15:54 Blood Pressure 121/81 11/18/17 15:54 O2 Sat by Pulse Oximetry 91 11/18/17 15:54 Temperature 98.0 F 11/18/17 15:54 Pulse Rate 90 11/18/17 16:59 Respiratory Rate 20 11/18/17 16:59 Blood Pressure 142/80 11/18/17 16:59 O2 Sat by Pulse Oximetry 96 11/18/17 16:59 Oxygen Delivery Oxygen Delivery Nasal Cannula Shortness of Breath/Dyspnea - MDM Narrative Medical decision making narrative: Patient was given albuterol 1 DuoNeb 1 Solu-Medrol 125 mg IV blood cultures were obtained patient was also given Lasix 40 mg IV. Patient was given Rocephin 2 g IV. Consultation with hospitalist for admission was obtained. - Differential Diagnosis Likely: acute exacerbation of chronic obstructive airways disease, congestive heart failure, pneumonia, asthma with exacerbation - Lab Data Lab results reviewed: Yes I reviewed the patient's lab results. Result diagrams: 11/18/17 16:15 11/18/17 16:15 Lab Results 11/18/17 11/18/17 11/18/17 Range/Units 16:15 16:15 16:15 WBC 11.5 H (4.3-11.1) K/mcL RBC 4.57 (3.82-4.97) M/mcL Hgb 12.6 (11.5-15.4) g/dL Hct 40.8 (35.3-44.9) % MCV 89.3 (83.0-100.0) fL MCH 27.6 L (28.0-33.3) pg MCHC 30.9 L (31.6-35.5) g/dL RDW 13.7 (11.5-14.5) % Plt Count 366 (140-400) K/mcL MPV 10.9 (9.4-12.4) fL Immature Gran % 0.3 (0-4) % Seg Neutrophils % 81.4 % Lymphocytes % 10.0 % Monocytes % 7.3 % Eosinophils % 0.6 % Basophils % 0.4 % Neutrophils # 9.4 H (1.6-8.9) K/mcL Lymphocytes # 1.2 (0.6-4.6) K/mcL Monocytes # 0.8 (0.0-1.3) K/mcL Eosinophils # 0.1 (0.0-0.6) K/mcL Basophils # 0.1 (0.0-0.2) K/mcL PT (9.4-12.1) Seconds INR APTT (26.0-36.0) Seconds Sample Site ABG pH (7.32-7.45) pH Units ABG pCO2 (35-45) mmHg ABG pO2 (85-104) mmHg ABG HCO3 (21-27) mEq/L ABG Total CO2 (20-26) mEq/L ABG O2 Saturation (95-98) % ABG Base Excess (-2 to 3) mEq/L Celio Test O2 Delivery Device Inspired O2 (1-15=lpm vu69-164=%) Sodium 135 L (136-145) mEq/L Potassium 4.1 (3.5-5.1) mEq/L Chloride 88 L (98-107) mEq/L Carbon Dioxide 41 H* (23-29) mEq/L BUN 17 (8-23) mg/dL Creatinine 0.68 (0.60-1.20) mg/dL Est GFR ( Amer) > 60 (> 60) Est GFR (Non-Af Amer) > 60 (> 60) BUN/Creatinine Ratio 25 (6-26) Glucose 124 H (70-105) mg/dL Calculated Osmolality 283 (280-300) Lactic Acid 1.1 (0.5-2.2) mmol/L Calcium 9.9 (8.6-10.3) mg/dL Troponin I < 0.03 (< 0.04) ng/mL B-Natriuretic Peptide (Less than 100) pg/mL Person Notif of Crit 11/18/17 11/18/17 11/18/17 Range/Units 16:15 16:15 16:58 WBC (4.3-11.1) K/mcL RBC (3.82-4.97) M/mcL Hgb (11.5-15.4) g/dL Hct (35.3-44.9) % MCV (83.0-100.0) fL MCH (28.0-33.3) pg MCHC (31.6-35.5) g/dL RDW (11.5-14.5) % Plt Count (140-400) K/mcL MPV (9.4-12.4) fL Immature Gran % (0-4) % Seg Neutrophils % % Lymphocytes % % Monocytes % % Eosinophils % % Basophils % % Neutrophils # (1.6-8.9) K/mcL Lymphocytes # (0.6-4.6) K/mcL Monocytes # (0.0-1.3) K/mcL Eosinophils # (0.0-0.6) K/mcL Basophils # (0.0-0.2) K/mcL PT 11.2 (9.4-12.1) Seconds INR 1.0 APTT 31.8 (26.0-36.0) Seconds Sample Site R Radial ABG pH 7.42 (7.32-7.45) pH Units ABG pCO2 71 H* (35-45) mmHg ABG pO2 97 (85-104) mmHg ABG HCO3 46 H (21-27) mEq/L ABG Total CO2 48 H (20-26) mEq/L ABG O2 Saturation 97 (95-98) % ABG Base Excess 18 H (-2 to 3) mEq/L Celio Test Positive O2 Delivery Device Cannula Inspired O2 3.0 (1-15=lpm mo95-500=%) Sodium (136-145) mEq/L Potassium (3.5-5.1) mEq/L Chloride (98-107) mEq/L Carbon Dioxide (23-29) mEq/L BUN (8-23) mg/dL Creatinine (0.60-1.20) mg/dL Est GFR ( Amer) (> 60) Est GFR (Non-Af Amer) (> 60) BUN/Creatinine Ratio (6-26) Glucose (70-105) mg/dL Calculated Osmolality (280-300) Lactic Acid (0.5-2.2) mmol/L Calcium (8.6-10.3) mg/dL Troponin I (< 0.04) ng/mL B-Natriuretic Peptide 1621 H (Less than 100) pg/mL Person Notif of Jonathan Dash - Radiology Data Radiology results reviewed: Yes I reviewed the patient's radiology results. Chest x-ray by radiology reading, shows some mild congestive heart failure, and will bilateral small pleural effusion versus atelectasis. - EKG Data EKG attestation: Yes I reviewed and interpreted this EKG. EKG results narrative: EKG is a normal sinus rhythm EKG,,WITH multifocal PVC, and criteria for left ventricular hypertrophy EKG shows normal: Reports: sinus rhythm Rate: Reports: normal Rhythm: Reports: NSR Cope/QRS: Reports: normal, LBBB Voltage: Reports: increased voltage throughout, c/w LVH
[2017-11-18 16:24] LABS: Basophils # 0.1 K/mcL (0.0-0.2); Basophils % 0.4 %; Eosinophils # 0.1 K/mcL (0.0-0.6); Eosinophils % 0.6 %; Hematocrit 40.8 % (35.3-44.9); Hemoglobin 12.6 g/dL (11.5-15.4); Immature Granulocytes % 0.3 % (0-4); Lymphocytes # 1.2 K/mcL (0.6-4.6); Mean Corpuscular HGB Conc 30.9 g/dL (31.6-35.5); Mean Corpuscular Hemoglobin 27.6 pg (28.0-33.3); Mean Corpuscular Volume 89.3 fL (83.0-100.0); Mean Platelet Volume 10.9 fL (9.4-12.4); Monocytes # 0.8 K/mcL (0.0-1.3); Monocytes % 7.3 %; Neutrophils # 9.4 K/mcL (1.6-8.9); Platelet Count 366 K/mcL (140-400); Red Blood Count 4.57 M/mcL (3.82-4.97); Red Cell Distribution Width 13.7 % (11.5-14.5); Segmented Neutrophils % 81.4 %
[2017-11-18 16:33] LABS: Prothrombin Time 11.2 Seconds (9.4-12.1)
[2017-11-18 16:36] LABS: Activated Partial Thrombo Time 31.8 Seconds (26.0-36.0)
[2017-11-18 16:42] LABS: BUN/Creatinine Ratio 25 (6-26); Blood Urea Nitrogen 17 mg/dL (8-23); Calcium 9.9 mg/dL (8.6-10.3); Carbon Dioxide 41 mEq/L (23-29); Chloride 88 mEq/L (98-107); Glucose 124 mg/dL (70-105); Osmolality,Calculated 283 (280-300); Potassium 4.1 mEq/L (3.5-5.1); Sodium 135 mEq/L (136-145); eGFR For African Americans > 60 (> 60); eGFR For Non-African Americans > 60 (> 60)
[2017-11-18 16:53] LABS: Troponin I < 0.03 ng/mL (< 0.04)
[2017-11-18] MEDS ORDERED: *HR* LORazepam 0.5 MG TABLET PO PRN (17:04)
[2017-11-18 17:07] LABS: ABG Base Excess 18 mEq/L (-2 to 3); ABG HCO3 46 mEq/L (21-27); ABG Oxygen Saturation 97 % (95-98); ABG PCO2 71 mmHg (35-45); ABG PH 7.42 pH Units (7.32-7.45); ABG PO2 97 mmHg (85-104); ABG TCO2 48 mEq/L (20-26)
[2017-11-18] MEDS ORDERED: MOM Conc 10 ML UD.LIQ PO ONE (19:07)
[2017-11-18] MEDS: MOM Conc 10 ML UD.LIQ PO SCH (19:43)
[2017-11-18] MEDS: cefTRIAXone 2,000 MG in Water for inj. (sterile) 20 ML 20 ML IVP SCH (21:41)
[2017-11-18] MEDS: ALPRAZolam 0.5 MG TABLET PO PRN (21:41)
[2017-11-18] MEDS: Budesonide/Formoterol 160/4.5 MDI IH SCH (21:42)
[2017-11-19 06:19] LABS: Basophils % 0.3 %; Hematocrit 37.8 % (35.3-44.9); Hemoglobin 11.6 g/dL (11.5-15.4); Immature Granulocytes % 0.3 % (0-4); Lymphocytes # 0.4 K/mcL (0.6-4.6); Lymphocytes % 6.9 %; Mean Corpuscular HGB Conc 30.7 g/dL (31.6-35.5); Mean Corpuscular Hemoglobin 27.4 pg (28.0-33.3); Mean Corpuscular Volume 89.2 fL (83.0-100.0); Mean Platelet Volume 11.5 fL (9.4-12.4); Monocytes # 0.2 K/mcL (0.0-1.3); Monocytes % 2.9 %; Neutrophils # 5.6 K/mcL (1.6-8.9); Platelet Count 312 K/mcL (140-400); Red Blood Count 4.24 M/mcL (3.82-4.97); Red Cell Distribution Width 13.6 % (11.5-14.5); Segmented Neutrophils % 89.6 %
[2017-11-19] MEDS: Tiotropium 18 MCG inhalation IH SCH (08:24)
[2017-11-19] MEDS ORDERED: Bumetanide 1 MG TABLET PO SCH (09:00)
[2017-11-19] MEDS: Lactobacillus 1 EACH CAP.SPRINK PO SCH (10:19)
[2017-11-19] MEDS: Ascorbic Acid 500 MG TABLET PO SCH (10:19)
[2017-11-19] MEDS: Multivit/Ca/Min/Fe/FA 1 TAB TABLET PO SCH (10:19)
[2017-11-19] MEDS: Nicotine 21 MG PATCH.TD24 TD SCH (10:26)
[2017-11-19] MEDS: Budesonide/Formoterol 160/4.5 MDI IH SCH ×2 (10:31→20:46)
--- NOTE | 2017-11-19 11:27 | Internal Med History&Physical ---
Date of Encounter: 11/19/17 Time of Encounter: 10:55 Assessment and Plan (1) CHF (congestive heart failure) Current visit: Yes Status: Chronic She has been restarted on home dose of Bumex and Cozaar. I will increase Bumex to facilitate diuresis and lessen symptoms. Labs and clinical course will be monitored. Qualifiers: Heart failure type: systolic Heart failure chronicity: acute on chronic Qualified Code(s): I50.23 - Acute on chronic systolic (congestive) heart failure (2) COPD (chronic obstructive pulmonary disease) with acute bronchitis Current visit: Yes Status: Acute Continue Symbicort, Spiriva, and albuterol MDI. Will order chest CT to follow- up on abnormalities seen August 2017. (3) Hypertension Current visit: No Status: Chronic Continue Cozaar and Bumex. Qualifiers: Hypertension type: essential hypertension Qualified Code(s): I10 - Essential (primary) hypertension Internal Medicine - H&P: HPI Chief complaint: Dyspnea Admitted From: Emergency Dept Plans for Post Hospital Care: Home History of present illness: Ms. Huff is a 77 year old female who came to emergency room complaining of worsening dyspnea for 10 days. She had a minimal cough productivity of yellows mucus. She had no chest pain. She was evaluated in emergency room and felt to have exacerbation of heart failure and acute bronchitis. She was admitted to [facility] floor for ongoing care needs. Respiratory history is significant for quitting smoking 2016 after smoking for over 50 years never exceeding 1 pack per day. She now uses vapor nicotine source. She had pulmonary function tests approximately July 2015 that showed very severe obstructive lung disease without significant bronchodilator response. Her FEV1 was 27% predicted and she had evidence of air trapping. She wears oxygen at home nearly 24/7. She has not been tested for sleep apnea. Cardiovascular history is pertinent for hypertension but no known [place] angina DVT or pulmonary embolus. She reports she had a "heart rhythm" issue approximately 3 years ago does not recall the name. She saw a lavender farm worker for 1 visit and was told she did not need to return. She had an echocardiogram done during her August 2017 [facility] swing bed stay which showed LVEF of 30% with indeterminate diastolic function. There was mild aortic stenosis and mild mitral regurgitation but no other significant valvular abnormalities. A small pericardial effusion was seen. She had [facility] 10/02/2017 further evaluate the cardiomyopathy. There was mild 2 vessel disease with 50% stenosis in the mid LAD 25% stenosis in the proximal RCA. The circumflex, first marginal, and LMCA were angiographically free of disease. Past Med Surg Social Fam HX - Past Medical History Medical history: cardiomyopathy, CHF, COPD, hyperlipidemia, hypertension Additional medical history: LEFT BBB. SVT. THYROID NODULE. HOME O2 Psychiatric history: anxiety - Past Surgical History Surgical History: appendectomy, cataract Additional surgical history: Heart Cath September 2017 - Social History Smoking Status: Former smoker Smokeless Tobacco Status: No Alcohol use: none Drug use: none - Family History Mother Hx Family Cardiac Disorders: Yes ([place]) Father Hx Family Cardiac Disorders: Yes ([place]) Internal Medicine - H&P: Meds LORazepam [Ativan] 0.5 mg PO QID PRN 03/09/15 [History] Tiotropium [Spiriva] 18 mcg IH 0700 03/09/15 [History] Aspirin [Adult Low Dose Aspirin EC] 81 mg PO 3XW 08/12/15 [History] Acetylcysteine [Nac] 600 mg PO BID 09/09/17 [History] Albuterol Sulfate [Ventolin Hfa] 18 gm IH AD 09/09/17 [History] Atorvastatin [Lipitor] 20 mg PO DAILY 09/09/17 [History] Nicotine Patch [Nicoderm] 21 mg TD DAILY patch.td24 09/14/17 [Rx] Ascorbic Acid [Vitamin C] 500 mg PO DAILY #30 tablet 09/18/17 [Rx] Bumetanide 0.5 mg PO DAILY #30 tablet 09/18/17 [Rx] Ferrous Sulfate 325 mg PO DAILY #30 tablet 09/18/17 [Rx] Losartan Potassium [Cozaar] 50 mg PO DAILY #30 tab 09/18/17 [Rx] Metoprolol Succinate 100 mg PO DAILY #30 tab.er.24h 09/18/17 [Rx] Multivit-Min/Iron/Folic/Lutein [Centrum Silver Women Tablet] 1 each PO DAILY 09/16 [History] Acetaminophen [Tylenol] 500 mg PO DAILY 11/18/17 [History] Azithromycin [Zithromax] 250 mg PO QMWF 11/18/17 [History] Budesonide/Formoterol 160/4.5 [Symbicort 160/4.5] 2 puff IH BIDR 11/18/17 [ History] L. Acidophilus/Pectin, [place] [Acidophilus Probiotic Capsule] 1 each PO DAILY [History] 3 Allergy/AdvReac Type Severity Reaction Status Date / Time codeine Allergy Rash Verified 09/09/17 13:32 levofloxacin [From Levaquin] Allergy Joint Pain Verified 09/09/17 13:32 All Systems PM: A 10-system review of systems was performed and is negative for pertinent findings except as documented above in the HPI. Review of systems: Review of systems from August 2017 swing bed hospitalization were reviewed and revised as below. Gen.: Her weight has decreased from 54.613 kg on 08/15/2015 to 49.396 kg now Cardiovascular: As per history of present illness Respiratory: As per history of present illness GI: She denies disorders of her liver gallbladder or exocrine pancreas. : No known hematuria dysuria or kidney stones. Neurologic: No history of large distribution strokes or seizures. Endocrine: She has had right thyroid "enlargement" but is uncertain if it is a cyst or nodule. She has a history of hyperlipidemia but no known diabetes. Hematology/oncology: She denies blood disorders cancers or anemia. Psychiatric: She has anxiety and depression. [place] skeletal: She denies arthritis gout or osteoporosis. - Constitutional Vitals: Temp Pulse Resp BP Pulse Ox 97.6 F 89 18 118/74 95 11/19/17 07:00 11/19/17 07:00 11/19/17 07:00 11/19/17 07:00 11/19/17 10:45 Exam: Gen.: She is a well-developed lean female sitting in bed who appears minimally dyspneic HEENT: Head is atraumatic and normal cephalic. Eyes: EOMI. There is no scleral icterus. Mouth: Mucosa is moist. Neck: Supple and nontender. There is no thyromegaly or adenopathy noted. Heart: Regular without murmurs or gallops. There is an occasional ectopic beat. Lungs: No wheezes or crackles are heard. She has diminished breath sounds diffusely. Back: She has dorsal kyphosis. There is no flank tenderness or presacral edema. Abdomen: Soft and nontender. No masses or guarding are noted. Extremities: There is no cyanosis or clubbing noted. She has trace to 1+ edema on the dorsum of the feet and lower anterior shins bilaterally. Dorsalis pedis and posterior tibial pulses are nonpalpable. Her feet are warm to touch. Neurologic: Mental status: She is talkative and a good historian. Cranial nerves: Smile is symmetric. Forehead wrinkles bilaterally. Tongue protrudes midline. EOMI. Motor: There is no pronator drift. Cerebellar: Finger to nose is intact bilaterally. Skin: Warm and dry Internal Med - H&P Results - Labs CBC & Chem 7: 11/19/17 05:56 11/18/17 16:15 Labs: Short CBC 11/19/17 Range/Units 05:56 WBC 6.3 (4.3-11.1) K/mcL Hgb 11.6 (11.5-15.4) g/dL Hct 37.8 (35.3-44.9) % Plt Count 312 (140-400) K/mcL Neutrophils # 5.6 (1.6-8.9) K/mcL
[2017-11-19] MEDS: Bumetanide 1 MG TABLET PO SCH (12:17)
[2017-11-19] MEDS: cefTRIAXone 2,000 MG in Water for inj. (sterile) 20 ML 20 ML IVP SCH (16:35)
[2017-11-19] MEDS: ALPRAZolam 0.5 MG TABLET PO PRN (16:35)
--- NOTE | 2017-11-19 17:47 | Electrocardiograph Report ---
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
[2017-11-19] MEDS: ALPRAZolam 0.5 MG TABLET PO SCH (20:27)
[2017-11-20 07:06] LABS: Basophils # 0.1 K/mcL (0.0-0.2); Basophils % 0.4 %; Eosinophils # 0.1 K/mcL (0.0-0.6); Eosinophils % 0.5 %; Hematocrit 41.1 % (35.3-44.9); Hemoglobin 12.3 g/dL (11.5-15.4); Immature Granulocytes % 0.4 % (0-4); Lymphocytes # 1.3 K/mcL (0.6-4.6); Mean Corpuscular HGB Conc 29.9 g/dL (31.6-35.5); Mean Corpuscular Hemoglobin 26.9 pg (28.0-33.3); Mean Corpuscular Volume 89.9 fL (83.0-100.0); Mean Platelet Volume 11.2 fL (9.4-12.4); Monocytes # 1.4 K/mcL (0.0-1.3); Monocytes % 8.8 %; Platelet Count 325 K/mcL (140-400); Red Blood Count 4.57 M/mcL (3.82-4.97); Red Cell Distribution Width 13.9 % (11.5-14.5); Segmented Neutrophils % 81.9 %
[2017-11-20 07:26] LABS: BUN/Creatinine Ratio 29 (6-26); Blood Urea Nitrogen 20 mg/dL (8-23); Calcium 9.2 mg/dL (8.6-10.3); Carbon Dioxide 43 mEq/L (23-29); Chloride 92 mEq/L (98-107); Glucose 112 mg/dL (70-105); Osmolality,Calculated 293 (280-300); Potassium 3.5 mEq/L (3.5-5.1); Sodium 140 mEq/L (136-145); eGFR For African Americans > 60 (> 60); eGFR For Non-African Americans > 60 (> 60)
[2017-11-20] MEDS: ALPRAZolam 0.5 MG TABLET PO SCH ×4 (07:58→20:48)
[2017-11-20] MEDS: Nicotine 21 MG PATCH.TD24 TD SCH (07:58)
[2017-11-20] MEDS: Multivit/Ca/Min/Fe/FA 1 TAB TABLET PO SCH (07:58)
[2017-11-20] MEDS: Aspirin Enteric Coated 81 MG Tablet PO SCH (07:59)
[2017-11-20] MEDS: Lactobacillus 1 EACH CAP.SPRINK PO SCH (07:59)
[2017-11-20] MEDS: Bumetanide 1 MG TABLET PO SCH (07:59)
[2017-11-20] MEDS: Ascorbic Acid 500 MG TABLET PO SCH (08:00)
[2017-11-20] MEDS: Tiotropium 18 MCG inhalation IH SCH (08:59)
[2017-11-20] MEDS ORDERED: Azithromycin 250 MG TABLET PO SCH (09:00)
[2017-11-20] MEDS: Budesonide/Formoterol 160/4.5 MDI IH SCH ×2 (09:00→20:58)
[2017-11-20 11:36] LABS: % Iron Saturation 5 % (15-50); Ferritin 37 ng/mL (10-120); Iron 21 mcg/dL (50-170); Transferrin 327 mg/dL (203-362)
--- NOTE | 2017-11-20 11:54 | Internal Med Progress Note ---
Date of Encounter: 11/20/17 Time of Encounter: 11:40 - Assessment and plan (1) CHF (congestive heart failure) Current Visit: Yes Status: Chronic Assessment and plan: November 20. BN peptide unimproved at 1847. Will add Lanoxin and continue Bumex and Cozaar. Qualifiers: Heart failure type: systolic Heart failure chronicity: acute on chronic Qualified Code(s): I50.23 - Acute on chronic systolic (congestive) heart failure (2) COPD (chronic obstructive pulmonary disease) with acute bronchitis Current Visit: Yes Status: Acute Assessment and plan: November 20. Continue Spiriva, Symbicort, and albuterol MDI. (3) Hypertension Current Visit: No Status: Chronic Assessment and plan: November 20. Continue Cozaar and Bumex Qualifiers: Hypertension type: essential hypertension Qualified Code(s): I10 - Essential (primary) hypertension (4) Mass of upper lobe of right lung Current Visit: Yes Status: Acute Assessment and plan: November 20. I reviewed the CT report with her. She wishes to complete treatment for her present acute problems without transfer to another facility. She will have further workup done as an outpatient. (5) Breast mass, left Current Visit: Yes Status: Acute Assessment and plan: November 20. Chest CT showed possible mass in the lateral aspect of the left breast. Mammogram was suggested. She wishes to complete treatment for acute problems without transfer and do further workup as an outpatient. - Subjective Interval history: November 20. She has no complaints. She does not feel there is been significant improvement in her dyspnea. - Constitutional Vitals: Temp Pulse Resp BP Pulse Ox 97.5 F L 98 22 136/87 90 11/20/17 07:05 11/20/17 07:05 11/20/17 08:59 11/20/17 07:05 11/20/17 08:59 Exam: She is sitting up in the bed and has purse lipped breathing. She is appropriate in conversation. I reviewed her medications. I reviewed her labs and CT report with her. Internal Medicine: Result - Labs CBC & Chem 7: 11/20/17 06:30 11/20/17 06:48 Labs: Short CBC 11/20/17 Range/Units 06:30 WBC 15.9 H D (4.3-11.1) K/mcL Hgb 12.3 (11.5-15.4) g/dL Hct 41.1 (35.3-44.9) % Plt Count 325 (140-400) K/mcL Neutrophils # 13.0 H (1.6-8.9) K/mcL BMP 11/20/17 06:48 Sodium 140 Potassium 3.5 Chloride 92 L Carbon Dioxide 43 H* BUN 20 Creatinine 0.70 Glucose 112 H Calcium 9.2 - ABG Interpretation ABG results: ABG ABG pH 7.42 pH Units (7.32-7.45) 11/18/17 16:58 ABG pCO2 71 mmHg (35-45) H* 11/18/17 16:58 ABG pO2 97 mmHg (85-104) 11/18/17 16:58 ABG O2 Saturation 97 % (95-98) 11/18/17 16:58 PT/INR, D-dimer PT 11.2 Seconds (9.4-12.1) 11/18/17 16:15 Consult Discharge Plan - Plan Referrals: Chung Henderson MD [Primary Care Provider] - 1 week
[2017-11-20] MEDS: *HR* Digoxin 0.125 MG TABLET PO SCH (14:11)
[2017-11-20] MEDS: Doxycycline 100 MG in 0.9 % Sodium Chloride Mini Bag 100 ML IVPB SCH (14:11)
[2017-11-20] MEDS: cefTRIAXone 2,000 MG in Water for inj. (sterile) 20 ML 20 ML IVP SCH (17:47)
[2017-11-20] MEDS: MOM Conc 10 ML UD.LIQ PO SCH (20:48)
[2017-11-21] MEDS: Doxycycline 100 MG in 0.9 % Sodium Chloride Mini Bag 100 ML IVPB SCH ×2 (02:34→13:16)
[2017-11-21 05:21] LABS: Basophils # 0.1 K/mcL (0.0-0.2); Basophils % 0.5 %; Eosinophils # 0.2 K/mcL (0.0-0.6); Eosinophils % 1.6 %; Hematocrit 40.6 % (35.3-44.9); Hemoglobin 12.1 g/dL (11.5-15.4); Immature Granulocytes % 0.3 % (0-4); Lymphocytes # 1.4 K/mcL (0.6-4.6); Lymphocytes % 12.7 %; Mean Corpuscular HGB Conc 29.8 g/dL (31.6-35.5); Mean Corpuscular Hemoglobin 26.9 pg (28.0-33.3); Mean Corpuscular Volume 90.2 fL (83.0-100.0); Mean Platelet Volume 11.4 fL (9.4-12.4); Monocytes % 9.3 %; Neutrophils # 8.2 K/mcL (1.6-8.9); Platelet Count 330 K/mcL (140-400); Segmented Neutrophils % 75.6 %
[2017-11-21 05:50] LABS: BUN/Creatinine Ratio 38 (6-26); Blood Urea Nitrogen 21 mg/dL (8-23); Calcium 8.9 mg/dL (8.6-10.3); Carbon Dioxide 43 mEq/L (23-29); Chloride 90 mEq/L (98-107); Glucose 106 mg/dL (70-105); Osmolality,Calculated 285 (280-300); Potassium 4.1 mEq/L (3.5-5.1); Sodium 136 mEq/L (136-145); eGFR For African Americans > 60 (> 60); eGFR For Non-African Americans > 60 (> 60)
[2017-11-21] MEDS: Nicotine 21 MG PATCH.TD24 TD SCH (08:00)
[2017-11-21] MEDS: Lactobacillus 1 EACH CAP.SPRINK PO SCH (08:01)
[2017-11-21] MEDS: Multivit/Ca/Min/Fe/FA 1 TAB TABLET PO SCH (08:01)
[2017-11-21] MEDS: Bumetanide 1 MG TABLET PO SCH (08:01)
[2017-11-21] MEDS: ALPRAZolam 0.5 MG TABLET PO SCH ×4 (08:01→21:29)
[2017-11-21] MEDS: Ascorbic Acid 500 MG TABLET PO SCH (08:02)
[2017-11-21] MEDS: *HR* Digoxin 0.125 MG TABLET PO SCH (08:02)
[2017-11-21] MEDS: Tiotropium 18 MCG inhalation IH SCH (08:38)
[2017-11-21] MEDS: Budesonide/Formoterol 160/4.5 MDI IH SCH ×2 (08:39→21:38)
[2017-11-21] MEDS ORDERED: MOM Conc 10 ML UD.LIQ PO SCH (15:30)
[2017-11-21] MEDS ORDERED: Bisacodyl 10 MG RECTAL SUPPOSITORY RC ONE (16:50)
--- NOTE | 2017-11-21 16:54 | Internal Med Progress Note ---
Date of Encounter: 11/21/17 Time of Encounter: 16:45 - Assessment and plan (1) CHF (congestive heart failure) Current Visit: Yes Status: Chronic Assessment and plan: November 20. BN peptide unimproved at 1847. Will add Lanoxin and continue Bumex and Cozaar. November 21. BN peptide significantly improved at 1277. Continue present regimen. Qualifiers: Heart failure type: systolic Heart failure chronicity: acute on chronic Qualified Code(s): I50.23 - Acute on chronic systolic (congestive) heart failure (2) COPD (chronic obstructive pulmonary disease) with acute bronchitis Current Visit: Yes Status: Acute Assessment and plan: November 20. Continue Spiriva, Symbicort, and albuterol MDI. (3) Hypertension Current Visit: No Status: Chronic Assessment and plan: November 20. Continue Cozaar and Bumex Qualifiers: Hypertension type: essential hypertension Qualified Code(s): I10 - Essential (primary) hypertension (4) Mass of upper lobe of right lung Current Visit: Yes Status: Acute Assessment and plan: November 20. I reviewed the CT report with her. She wishes to complete treatment for her present acute problems without transfer to another facility. She will have further workup done as an outpatient. November 21. She will remain at [facility] and likely go to swing bed 11/23/2017. PET scan will be arranged. (5) Breast mass, left Current Visit: Yes Status: Acute Assessment and plan: November 20. Chest CT showed possible mass in the lateral aspect of the left breast. Mammogram was suggested. She wishes to complete treatment for acute problems without transfer and do further workup as an outpatient. November 21. Will arrange mammogram to be done in swing bed or as outpatient. (6) Constipation Current Visit: Yes Status: Acute Assessment and plan: November 21. Will give Dulcolax suppository and continue Colace and MOM (increased dose) Qualifiers: Constipation type: unspecified constipation type Qualified Code(s): K59.00 - Constipation, unspecified - Subjective Interval history: November 20. She has no complaints. She does not feel there is been significant improvement in her dyspnea. November 21. She complains of constipation. Her dyspnea has significantly improved. - Constitutional Vitals: Temp Pulse Resp BP Pulse Ox 98 F 97 16 156/95 98 11/21/17 14:00 11/21/17 14:00 11/21/17 14:00 11/21/17 14:00 11/21/17 14:00 Exam: She is sitting in a chair at bedside resting comfortably eating supper. She does not appear dyspneic. I reviewed her medications. I reviewed pertinent lab results with patient and family. Internal Medicine: Result - Labs CBC & Chem 7: 11/21/17 04:52 11/21/17 04:52 Labs: Short CBC 11/21/17 Range/Units 04:52 WBC 10.8 (4.3-11.1) K/mcL Hgb 12.1 (11.5-15.4) g/dL Hct 40.6 (35.3-44.9) % Plt Count 330 (140-400) K/mcL Neutrophils # 8.2 (1.6-8.9) K/mcL BMP 11/21/17 04:52 Sodium 136 Potassium 4.1 Chloride 90 L Carbon Dioxide 43 H* BUN 21 Creatinine 0.56 L Glucose 106 H Calcium 8.9 - ABG Interpretation ABG results: ABG ABG pH 7.42 pH Units (7.32-7.45) 11/18/17 16:58 ABG pCO2 71 mmHg (35-45) H* 11/18/17 16:58 ABG pO2 97 mmHg (85-104) 11/18/17 16:58 ABG O2 Saturation 97 % (95-98) 11/18/17 16:58 PT/INR, D-dimer PT 11.2 Seconds (9.4-12.1) 11/18/17 16:15 - VTE Documentation of Mechanical Device: Graduated compression elastic hosiery Consult Discharge Plan - Plan Referrals: Chung Henderson MD [Primary Care Provider] - 1 week
[2017-11-21] MEDS: cefTRIAXone 2,000 MG in Water for inj. (sterile) 20 ML 20 ML IVP SCH (17:18)
[2017-11-22] MEDS: Doxycycline 100 MG in 0.9 % Sodium Chloride Mini Bag 100 ML IVPB SCH ×2 (00:46→15:35)
[2017-11-22] MEDS: Bumetanide 1 MG TABLET PO SCH (08:11)
[2017-11-22] MEDS: Multivit/Ca/Min/Fe/FA 1 TAB TABLET PO SCH (08:11)
[2017-11-22] MEDS: Ascorbic Acid 500 MG TABLET PO SCH (08:12)
[2017-11-22] MEDS: *HR* Digoxin 0.125 MG TABLET PO SCH (08:12)
[2017-11-22] MEDS: Nicotine 21 MG PATCH.TD24 TD SCH (08:12)
[2017-11-22] MEDS: ALPRAZolam 0.5 MG TABLET PO SCH ×4 (08:12→20:30)
[2017-11-22] MEDS: Lactobacillus 1 EACH CAP.SPRINK PO SCH (08:14)
[2017-11-22] MEDS: Tiotropium 18 MCG inhalation IH SCH (09:12)
[2017-11-22] MEDS: Budesonide/Formoterol 160/4.5 MDI IH SCH ×2 (09:12→22:17)
--- NOTE | 2017-11-22 09:54 | Internal Med Progress Note ---
Date of Encounter: 11/22/17 Time of Encounter: 09:45 - Assessment and plan (1) CHF (congestive heart failure) Current Visit: Yes Status: Chronic Assessment and plan: November 20. BN peptide unimproved at 1847. Will add Lanoxin and continue Bumex and Cozaar. November 21. BN peptide significantly improved at 1277. Continue present regimen. Qualifiers: Heart failure type: systolic Heart failure chronicity: acute on chronic Qualified Code(s): I50.23 - Acute on chronic systolic (congestive) heart failure (2) COPD (chronic obstructive pulmonary disease) with acute bronchitis Current Visit: Yes Status: Acute Assessment and plan: November 20. Continue Spiriva, Symbicort, and albuterol MDI. (3) Hypertension Current Visit: No Status: Chronic Assessment and plan: November 20. Continue Cozaar and Bumex Qualifiers: Hypertension type: essential hypertension Qualified Code(s): I10 - Essential (primary) hypertension (4) Mass of upper lobe of right lung Current Visit: Yes Status: Acute Assessment and plan: November 20. I reviewed the CT report with her. She wishes to complete treatment for her present acute problems without transfer to another facility. She will have further workup done as an outpatient. November 21. She will remain at [facility] and likely go to swing bed 11/23/2017. PET scan will be arranged. (5) Breast mass, left Current Visit: Yes Status: Acute Assessment and plan: November 20. Chest CT showed possible mass in the lateral aspect of the left breast. Mammogram was suggested. She wishes to complete treatment for acute problems without transfer and do further workup as an outpatient. November 21. Will arrange mammogram to be done in swing bed or as outpatient. (6) Constipation Current Visit: Yes Status: Acute Assessment and plan: November 21. Will give Dulcolax suppository and continue Colace and MOM (increased dose) November 22. Resolved. Continue Colace and MOM. Qualifiers: Constipation type: unspecified constipation type Qualified Code(s): K59.00 - Constipation, unspecified - Subjective Interval history: November 20. She has no complaints. She does not feel there is been significant improvement in her dyspnea. November 21. She complains of constipation. Her dyspnea has significantly improved. November 22. She had a BM and feels significantly better. She has no new complaints. - Constitutional Vitals: Temp Pulse Resp BP Pulse Ox 98.3 F 101 14 135/85 99 11/22/17 06:25 11/22/17 06:25 11/22/17 06:25 11/22/17 06:25 11/22/17 06:25 Exam: She is resting comfortably in a chair at bedside and appears in no acute distress. Her affect is bright and cheerful. I reviewed her medications and past lab results. Internal Medicine: Result - Labs CBC & Chem 7: 11/21/17 04:52 11/21/17 04:52 - ABG Interpretation ABG results: ABG ABG pH 7.42 pH Units (7.32-7.45) 11/18/17 16:58 ABG pCO2 71 mmHg (35-45) H* 11/18/17 16:58 ABG pO2 97 mmHg (85-104) 11/18/17 16:58 ABG O2 Saturation 97 % (95-98) 11/18/17 16:58 PT/INR, D-dimer PT 11.2 Seconds (9.4-12.1) 11/18/17 16:15 - VTE Documentation of Mechanical Device: Graduated compression elastic hosiery Consult Discharge Plan - Plan Referrals: Chung Henderson MD [Primary Care Provider] - 1 week
[2017-11-22] MEDS ORDERED: Ondansetron ODT 4 MG TAB.RAPDIS SL ONE (12:22)
[2017-11-22] MEDS ORDERED: Ondansetron ODT 4 MG TAB.RAPDIS SL PRN (16:30)
[2017-11-22] MEDS: cefTRIAXone 2,000 MG in Water for inj. (sterile) 20 ML 20 ML IVP SCH (17:51)
[2017-11-23 05:14] LABS: Basophils % 0.3 %; Eosinophils # 0.2 K/mcL (0.0-0.6); Eosinophils % 1.2 %; Hematocrit 38.1 % (35.3-44.9); Hemoglobin 11.1 g/dL (11.5-15.4); Immature Granulocytes % 0.3 % (0-4); Lymphocytes # 1.4 K/mcL (0.6-4.6); Lymphocytes % 8.7 %; Mean Corpuscular HGB Conc 29.1 g/dL (31.6-35.5); Mean Corpuscular Hemoglobin 26.9 pg (28.0-33.3); Mean Corpuscular Volume 92.3 fL (83.0-100.0); Mean Platelet Volume 11.4 fL (9.4-12.4); Monocytes # 1.5 K/mcL (0.0-1.3); Monocytes % 9.6 %; Neutrophils # 12.5 K/mcL (1.6-8.9); Platelet Count 310 K/mcL (140-400); Red Blood Count 4.13 M/mcL (3.82-4.97); Red Cell Distribution Width 14.1 % (11.5-14.5); Segmented Neutrophils % 79.9 %
[2017-11-23 05:15] LABS: Basophils # 0.1 K/mcL (0.0-0.2)
[2017-11-23] MEDS ORDERED: Cefuroxime PO 250 MG TABLET PO SCH (06:00)
[2017-11-23 06:12] LABS: BUN/Creatinine Ratio 25 (6-26); Blood Urea Nitrogen 16 mg/dL (8-23); Calcium 8.7 mg/dL (8.6-10.3); Carbon Dioxide 40 mEq/L (23-29); Chloride 92 mEq/L (98-107); Digoxin 0.4 ng/mL (0.8-2.0); Glucose 110 mg/dL (70-105); Osmolality,Calculated 282 (280-300); Sodium 135 mEq/L (136-145); eGFR For African Americans > 60 (> 60); eGFR For Non-African Americans > 60 (> 60)
[2017-11-23] MEDS ORDERED: Ascorbic Acid 500 MG TABLET PO SCH (08:00)
[2017-11-23] MEDS ORDERED: MOM Conc 10 ML UD.LIQ PO SCH ×2 (08:00→09:00)
[2017-11-23] MEDS: *HR* Digoxin 0.125 MG TABLET PO SCH (08:37)
[2017-11-23] MEDS: Aspirin Enteric Coated 81 MG Tablet PO SCH (08:37)
[2017-11-23] MEDS: ALPRAZolam 0.5 MG TABLET PO SCH ×2 (08:37→12:17)
[2017-11-23] MEDS: Bumetanide 1 MG TABLET PO SCH (08:40)
[2017-11-23] MEDS: Lactobacillus 1 EACH CAP.SPRINK PO SCH (08:40)
[2017-11-23] MEDS: Multivit/Ca/Min/Fe/FA 1 TAB TABLET PO SCH (08:41)
[2017-11-23] MEDS: Nicotine 21 MG PATCH.TD24 TD SCH (08:43)
[2017-11-23] MEDS ORDERED: Doxycycline 100 MG CAPSULE PO SCH (09:00)
[2017-11-23] MEDS: Tiotropium 18 MCG inhalation IH SCH (09:06)
[2017-11-23] MEDS: Budesonide/Formoterol 160/4.5 MDI IH SCH (09:06)
[2017-11-23] MEDS ORDERED: Clotrimazole 1% CRM 15 GM TUBE TP SCH (09:15)
[2017-11-23 09:48] VITALS: BP 108/62
--- NOTE | 2017-11-23 09:50 | Discharge Summary ---
Orders not resulted at time of discharge: Pending orders 11/20/17 13:[address] whole body DX/initial [PE] Routine Date of Encounter: 11/23/17 Time of Encounter: 09:25 - Discharge Diagnosis (1) CHF (congestive heart failure) Priority: Primary Status: Chronic Qualifiers: Heart failure type: systolic Heart failure chronicity: acute on chronic Qualified Code(s): I50.23 - Acute on chronic systolic (congestive) heart failure (2) COPD (chronic obstructive pulmonary disease) with acute bronchitis Priority: Secondary Status: Acute (3) Hypertension Priority: Secondary Status: Chronic Qualifiers: Hypertension type: essential hypertension Qualified Code(s): I10 - Essential (primary) hypertension (4) Mass of upper lobe of right lung Priority: Secondary Status: Acute (5) Breast mass, left Priority: Secondary Status: Acute (6) Constipation Priority: Secondary Status: Acute Qualifiers: Constipation type: unspecified constipation type Qualified Code(s): K59.00 - Constipation, unspecified Hospital course: Ms. Huff is a 77 year old female who came to emergency room complaining of worsening dyspnea for 10 days. She had a minimal cough productivity of yellows mucus. She had no chest pain. She was evaluated in emergency room and felt to have exacerbation of heart failure and acute bronchitis. She was admitted to [facility] floor for ongoing care needs. Initial orders were written by the emergency room physician. I saw her on November 19 and performed a history and physical. She was started on higher dose Bumex. Cozaar was continued. Lanoxin was added. She had significant improvement with bn peptide decreasing to 485 by day of discharge to swing bed. Chest CT was done to follow-up on previous seen nodules from August 2017 CT. There was interval decrease in right lateral basal consolidation but increase in size of right apical mass density. PET scan was suggested and this will be done during her swing bed stay. A possible mass in the lateral aspect of the left breast will be evaluated with mammogram as recommended. She was given IV Rocephin and doxycycline during acute care stay for possible pneumonia. She will continue with oral Ceftin and doxycycline for 2 additional days in swing bed. On November 23 arrangements were complete for to be discharged to swing bed for ongoing care needs. - Time Spent with Patient Total time spent providing and/or coordinating discharge services: - Discharge Medications Prescriptions: Metoprolol XL (24 HR) Succ [Toprol XL] 12.5 mg PO DAILY 365 Days tab.er.24h Home Medications: LORazepam [Ativan] 0.5 mg PO QID PRN 03/09/15 [History] Tiotropium [Spiriva] 18 mcg IH 0700 03/09/15 [History] Aspirin [Adult Low Dose Aspirin EC] 81 mg PO 3XW 08/12/15 [History] Acetylcysteine [Nac] 600 mg PO BID 09/09/17 [History] Albuterol Sulfate [Ventolin Hfa] 18 gm IH AD 09/09/17 [History] Atorvastatin [Lipitor] 20 mg PO DAILY 09/09/17 [History] Nicotine Patch [Nicoderm] 21 mg TD DAILY patch.td24 09/14/17 [Rx] Ascorbic Acid [Vitamin C] 500 mg PO DAILY #30 tablet 09/18/17 [Rx] Ferrous Sulfate 325 mg PO DAILY #30 tablet 09/18/17 [Rx] Losartan Potassium [Cozaar] 50 mg PO DAILY #30 tab 09/18/17 [Rx] Multivit-Min/Iron/Folic/Lutein [Centrum Silver Women Tablet] 1 each PO DAILY 09/16 [History] Acetaminophen [Tylenol] 500 mg PO DAILY 11/18/17 [History] Budesonide/Formoterol 160/4.5 [Symbicort 160/4.5] 2 puff IH BIDR 11/18/17 [ History] ALPRAZolam [Xanax 0.5 MG Tablet] 0.5 mg PO QID 30 Days tablet 11/23/17 [Rx] Acetaminophen [Tylenol] 500 mg PO Q6HR PRN tablet 11/23/17 [Rx] Bumetanide [Bumex] 1 mg PO DAILY tablet 11/23/17 [Rx] Cefuroxime PO [Ceftin] 500 mg PO Q12HR 2 Days tablet 11/23/17 [Rx] Clotrimazole 1% CRM [Lotrimin 1%] 1 appl TP BID tube 11/23/17 [Rx] Digoxin [Lanoxin] 0.125 mg PO DAILY tablet 11/23/17 [Rx] Docusate [Colace] 100 mg PO BID capsule 11/23/17 [Rx] Doxycycline 100 mg PO BID 2 Days capsule 11/23/17 [Rx] GuaiFENesin/Dextromethorphan [Robitussin/Dm] 10 ml PO Q6HR 2 Days udc 11/23/17 [Rx] L. Acidophilus/Pectin, Howard [Acidophilus Probiotic Capsule] 1 each PO BID 2 Days #0 11/23/17 [Rx] MOM Conc [MILK OF MAGNESIA conc] 10 ml PO Q48H ud.liq 11/23/17 [Rx] Metoprolol XL (24 HR) Succ [Toprol XL] 12.5 mg PO DAILY 365 Days tab.er.24h [Rx] Ondansetron ODT [Zofran ODT] 4 mg SL Q4H PRN tab.rapdis 11/23/17 [Rx] Allergies/Adverse Reactions: 3 Allergy/AdvReac Type Severity Reaction Status Date / Time codeine Allergy Rash Verified 09/09/17 13:32 levofloxacin [From Levaquin] Allergy Joint Pain Verified 09/09/17 13:32 Date of admission: 11/19/17 14:10 Primary care physician: Chung Henderson MD Consults: 11/23/17 09:03 Consult to Occupational Therapy [CONS] Routine Comment: Evaluate, develop and implement POC Reason for Consult: Weakness Does patient have active BEDREST order?: No Is patient medically & hemodynamically stable?: Yes Patient assessed for mobility or mobilized this visit?: Yes Consult to Physical Therapy [CONS] Routine Comment: Evaluate, develop and implement POC Reason for Consult: weakness Does patient have active BEDREST order?: No Is patient medically & hemodynamically stable?: Yes Patient assessed for mobility or mobilized this visit?: Yes - Constitutional Vitals: Temp Pulse Resp BP Pulse Ox 97.9 F 93 20 109/65 89 11/23/17 06:15 11/23/17 08:36 11/23/17 06:15 11/23/17 08:36 11/23/17 09:10 - Patient Status Disposition: Transfer Hospital Swing Bed Condition: Fair - Discharge Instructions Follow Up With: Chung Henderson MD [Primary Care Provider] - 1 week - Diet and Activity Activity: as per physical therapy Diet: advance to your usual diet - VTE Documentation of Mechanical Device: Graduated compression elastic hosiery
== END 2017-11-23 12:34 | disposition other institution (70) | DRG 291 ==
LOC: INPPIK 15:42 → EMEROOPIK 15:42 → INPPIK 17:57
PROVIDERS: ADMIT Internal Medicine; ATTEND Internal Medicine

== ENCOUNTER 2018-11-26 11:00 | Observation (INO) ==
[2018-11-26] MEDS ORDERED: 0.9 % Sodium Chloride 1,000 ML IVC ONE (11:08)
[2018-11-26] MEDS ORDERED: Azithromycin 500 MG in D5% in Water 250 ML IVPB ONE (11:08)
[2018-11-26] MEDS ORDERED: Ipratropium/Albuterol Neb 3 ML IH ONE (11:08)
[2018-11-26] MEDS ORDERED: methylPREDNISolone 125 MG/2 ML VIAL IVP ONE (11:08)
--- NOTE | 2018-11-26 11:12 | Emergency Department Note ---
Disposition Clinical Impression: Acute exacerbation of chronic obstructive airways disease Disposition: Admitted As Inpatient Condition: Fair Referrals: NONE,PCP [Primary Care Provider] - Forms: ED Satisfaction Letter Time of Disposition: 11:55 SOB HPI - General Chief Complaint: ED Shortness of Breath/Dyspnea Stated Complaint: sob Time Seen by Provider: 11/26/18 11:01 Source: patient, family Mode of arrival: private vehicle Limitations: no limitations Nursing Notes Reviewed: Yes Vital Signs Reviewed: Yes - History of Present Illness Pt Subjective Complaint: shortness of breath Onset (ago): day(s) (2 days) Context: recent illness (Patient states she had a little bit of diarrhea over the past week.) Severity: severe Consistency/Duration: constant, gradually worsening Improves with: nothing Worsens with: exertion Known history of: COPD Associated symptoms: Reports: chest pain (Discomfort to the lower left lateral chest), cough, wheezing, sputum production Treatment prior to arrival: oxygen, bronchodilator Cough present: Yes Cough Description: Productive Cough Frequency: Intermittent Sputum Amount: Moderate Sputum Color: Yellow - Related Data Home oxygen amount: 3 liters Home Medications Medication Instructions Recorded Confirmed Tiotropium [Spiriva] 2 puff IH DAILY 03/09/15 11/26/18 Acetylcysteine [Nac] 600 mg PO BID 09/09/17 11/26/18 Atorvastatin [Lipitor] 20 mg PO DAILY 09/09/17 11/26/18 Budesonide/Formoterol 160/4.5 2 puff IH BIDR 11/18/17 11/26/18 [Symbicort 160/4.5] Albuterol Sulfate [Ventolin Hfa] 2 puff IH Q4-6H PRN 12/23/17 11/26/18 Buspirone HCl [Buspar] 5 mg PO BID 12/23/17 11/26/18 Albuterol Neb [Proventil Neb] 2.5 mg IH Q4-6H PRN 02/05/18 11/26/18 Mirtazapine [Remeron] 15 mg PO DAILY 02/05/18 11/26/18 ALPRAZolam [Xanax 0.25 MG Tablet] 0.25 mg PO TID PRN 02/08/18 11/26/18 Losartan Potassium [Cozaar] 50 mg PO DAILY 04/29/18 11/26/18 Multivit-Min/FA/Lycopen/Lutein 1 each PO DAILY 04/29/18 11/26/18 [Centrum Silver Tablet] Ascorbic Acid [Vitamin C] 1,000 mg PO DAILY 11/26/18 11/26/18 Bumetanide [Bumex] 1 mg PO BID 11/26/18 11/26/18 Previous Rx's Medication Instructions Recorded Digoxin [Lanoxin] 0.125 mg PO DAILY #30 tablet 11/30/17 Metoprolol XL (24 HR) Succ [Toprol 25 mg PO DAILY #30 tab.er.24h 11/30/17 Xl] Allergies Allergy/AdvReac Type Severity Reaction Status Date / Time codeine Allergy Rash Verified 10/15/18 13:35 levofloxacin [From Levaquin] Allergy Joint Pain Verified 10/15/18 13:35 All systems ED: reviewed and negative except as stated. Constitutional: Denies: fever, chills ENT ED: Denies: ear pain, throat pain, congestion Cardiovascular: Reports: chest pain, dyspnea on exertion. Denies: palpitations, edema Respiratory: Reports: cough, dyspnea, wheezes, sputum production Gastrointestinal: Reports: diarrhea. Denies: abdominal pain, nausea, vomiting Genitourinary: Denies: urgency, frequency Musculoskeletal: Denies: back pain Integumentary: Denies: rash Neurological: Denies: headache Past Medical History - Past Medical History Attestation: Yes The following information was validated with the patient. Source: patient, old records reviewed, obtained from family, nursing notes reviewed Medical history: Reports: cardiomyopathy, CHF, COPD, hyperlipidemia, hypertension Surgical history: Reports: appendectomy, cataract Psychiatric history: Reports: anxiety - Social History Smoking Status: Former smoker Smokeless Tobacco Status: No Alcohol use: Reports: none Drug use: Reports: none Physical Exam - General Limitations: no limitations General appearance: alert, other (Tachypneic with pursed lipped exhalation but patient is able to speak full sentences) - Head Head exam: atraumatic, normocephalic, normal inspection - Eye Eye exam: Present: normal appearance, PERRL, EOMI. Absent: scleral icterus, conjunctival injection - ENT ENT exam: normal exam, normal oropharynx, mucous membranes moist, TM's normal bilaterally, normal external ear exam - Neck Neck exam: Present: normal inspection, full ROM, trachea midline. Absent: meningismus - Chest Chest inspection: Present: normal inspection, symmetric chest wall rise. Absent: tenderness - Respiratory Respiratory exam: Present: respiratory distress, wheezes, prolonged expiratory phase - Cardiovascular Cardiovascular exam: Present: normal rhythm, tachycardia, normal heart sounds - Abdominal Exam Abdominal exam: Present: soft, Non-Tender, normal bowel sounds - Extremities Exam Extremities exam: Present: normal inspection. Absent: tenderness, pedal edema, calf tenderness - Neurological Exam Neurological exam: Present: alert, oriented X3 - Psychiatric Psychiatric exam: Present: normal affect, normal mood - Skin Skin exam: Present: warm, dry. Absent: rash Course Course Narrative: Patient presents for shortness of breath that started yesterday and briskly worsening. She is using her home aerosol treatments and oxygen without relief. Cough is productive of yellow sputum. I do not hear a focal finding on the lungs on physical exam but pneumonia is definitely a concern. She is tachypneic with pursed lip exhalations but at rest on the bed is speaking full sentences. O2 sat is 96% on her baseline 3 L but she is tachycardic. I am ordering a shortness of breath workup and we will initiate breathing treatments and steroids and we will go ahead and proceed with antibiotics because I think it is most likely she is in need to be admitted to the hospital as she is already pretty much maximizing therapy at home. - Reevaluation(s) Reevaluation #1: Labs look okay and chest x-ray was clear. However patient still is in need to be admitted. I spoke with Dr. Chung Henderson who is the hospitalist today and is actually this patient's PCP. He accepted her for admission. Time: 11:52 - Consultations Consultation #1: Dr. Henderson, hospitalist - I discussed case with the hospitalist. He accepted the patient for admission. Time: 11:30 Vital Signs O2 Sat by Pulse Oximetry 95 11/26/18 11:14 Temperature 98.9 F 11/26/18 11:25 Pulse Rate 104 11/26/18 11:42 Respiratory Rate 18 11/26/18 11:42 Blood Pressure 138/70 11/26/18 11:42 O2 Sat by Pulse Oximetry 100 11/26/18 11:42 Oxygen Delivery Oxygen Delivery Aerosol Mask Shortness of Breath/Dyspnea - Medical Records Medical records reviewed: Yes I reviewed the patient's medical records. - Lab Data Lab results reviewed: Yes I reviewed the patient's lab results. Result diagrams: 11/26/18 11:24 11/26/18 11:24 Lab Results 11/26/18 11/26/18 11/26/18 Range/Units 11:24 11:24 11:24 WBC 15.2 H (4.3-11.1) K/mcL RBC 3.54 L (3.82-4.97) M/mcL Hgb 10.2 L (11.5-15.4) g/dL Hct 31.5 L (35.3-44.9) % MCV 89.0 (83.0-100.0) fL MCH 28.8 (28.0-33.3) pg MCHC 32.4 (31.6-35.5) g/dL RDW 13.1 (11.5-14.5) % Plt Count 295 (140-400) K/mcL MPV 10.1 (9.4-12.4) fL Immature Gran % 0.4 (0-4) % Seg Neutrophils % 86.3 % Lymphocytes % 5.5 % Monocytes % 6.3 % Eosinophils % 1.2 % Basophils % 0.3 % Neutrophils # 13.1 H (1.6-8.9) K/mcL Lymphocytes # 0.8 (0.6-4.6) K/mcL Monocytes # 1.0 (0.0-1.3) K/mcL Eosinophils # 0.2 (0.0-0.6) K/mcL Basophils # 0.1 (0.0-0.2) K/mcL Sodium 137 (136-145) mEq/L Potassium 3.9 (3.5-5.1) mEq/L Chloride 95 L (98-107) mEq/L Carbon Dioxide 31 H (23-29) mEq/L BUN 26 H (8-23) mg/dL Creatinine 1.18 (0.60-1.20) mg/dL Est GFR ( Amer) 54 L (> 60) Est GFR (Non-Af Amer) 45 L (> 60) BUN/Creatinine Ratio 22 (6-26) Glucose 196 H (70-105) mg/dL Calculated Osmolality 294 (280-300) Lactic Acid 1.6 (0.5-2.2) mmol/L Calcium 9.6 (8.6-10.3) mg/dL Troponin I < 0.03 (< 0.04) ng/mL Digoxin (0.8-2.0) ng/mL 11/26/18 Range/Units 11:24 WBC (4.3-11.1) K/mcL RBC (3.82-4.97) M/mcL Hgb (11.5-15.4) g/dL Hct (35.3-44.9) % MCV (83.0-100.0) fL MCH (28.0-33.3) pg MCHC (31.6-35.5) g/dL RDW (11.5-14.5) % Plt Count (140-400) K/mcL MPV (9.4-12.4) fL Immature Gran % (0-4) % Seg Neutrophils % % Lymphocytes % % Monocytes % % Eosinophils % % Basophils % % Neutrophils # (1.6-8.9) K/mcL Lymphocytes # (0.6-4.6) K/mcL Monocytes # (0.0-1.3) K/mcL Eosinophils # (0.0-0.6) K/mcL Basophils # (0.0-0.2) K/mcL Sodium (136-145) mEq/L Potassium (3.5-5.1) mEq/L Chloride (98-107) mEq/L Carbon Dioxide (23-29) mEq/L BUN (8-23) mg/dL Creatinine (0.60-1.20) mg/dL Est GFR ( Amer) (> 60) Est GFR (Non-Af Amer) (> 60) BUN/Creatinine Ratio (6-26) Glucose (70-105) mg/dL Calculated Osmolality (280-300) Lactic Acid (0.5-2.2) mmol/L Calcium (8.6-10.3) mg/dL Troponin I (< 0.04) ng/mL Digoxin 1.3 (0.8-2.0) ng/mL - Radiology Data Radiology results reviewed: Yes I reviewed the patient's radiology results. - EKG Data EKG attestation: Yes I reviewed and interpreted this EKG. EKG results narrative: Twelve-lead EKG performed at 11:13 AM. Ordered, reviewed and interpreted by ED physician shows an atrial sensed ventricular paced rhythm at a rate of 109. That is all that can really be said about this 12-lead.
[2018-11-26 11:31] LABS: Basophils # 0.1 K/mcL (0.0-0.2); Basophils % 0.3 %; Eosinophils # 0.2 K/mcL (0.0-0.6); Eosinophils % 1.2 %; Hematocrit 31.5 % (35.3-44.9); Hemoglobin 10.2 g/dL (11.5-15.4); Immature Granulocytes % 0.4 % (0-4); Lymphocytes # 0.8 K/mcL (0.6-4.6); Lymphocytes % 5.5 %; Mean Corpuscular HGB Conc 32.4 g/dL (31.6-35.5); Mean Corpuscular Hemoglobin 28.8 pg (28.0-33.3); Mean Platelet Volume 10.1 fL (9.4-12.4); Monocytes % 6.3 %; Neutrophils # 13.1 K/mcL (1.6-8.9); Platelet Count 295 K/mcL (140-400); Red Blood Count 3.54 M/mcL (3.82-4.97); Red Cell Distribution Width 13.1 % (11.5-14.5); Segmented Neutrophils % 86.3 %; White Blood Count 15.2 K/mcL (4.3-11.1)
[2018-11-26 11:50] LABS: Troponin I < 0.03 ng/mL (< 0.04)
[2018-11-26 11:51] LABS: BUN/Creatinine Ratio 22 (6-26); Blood Urea Nitrogen 26 mg/dL (8-23); Calcium 9.6 mg/dL (8.6-10.3); Carbon Dioxide 31 mEq/L (23-29); Chloride 95 mEq/L (98-107); Glucose 196 mg/dL (70-105); Osmolality,Calculated 294 (280-300); Potassium 3.9 mEq/L (3.5-5.1); Sodium 137 mEq/L (136-145); eGFR For African Americans 54 (> 60); eGFR For Non-African Americans 45 (> 60)
[2018-11-26] MEDS ORDERED: ALPRAZolam 0.25 MG TABLET PO STA (12:40)
[2018-11-26] MEDS ORDERED: Naloxone 0.4 MG/ML INJ IVP PRN (13:05)
[2018-11-26] MEDS ORDERED: MethylPREDNISolone 40 MG/ML VIAL IVP ONE (13:05)
--- NOTE | 2018-11-26 13:44 | Electrocardiograph Report ---
[place] [id number] Test Date: 2018-11-26 Pat Name: Marah Huff Department: EDP-16 Room: [facility] Gender: F Epic Manager: : 1940 Requested By: Emiliano Brewer Order Number: [id number] Reading MD: Shane Guerin Measurements Intervals [place] Rate: 109 P: 96 SD: 162 QRS: 51 QRSD: 106 T: 115 QT: 320 QTc: 431 Interpretive Statements Atrial-sensed ventricular-paced rhythm No further analysis attempted due to paced rhythm Electronically Signed On 11-26-2018 13:42:10 EDT by Shane Guerin
[2018-11-26] MEDS: Ipratropium/Albuterol Neb 3 ML IH SCH ×2 (15:12→20:17)
[2018-11-26] MEDS: ALPRAZolam 0.25 MG TABLET PO PRN ×2 (15:20→22:39)
[2018-11-26] MEDS: 0.9 % Sodium Chloride 1,000 ML IVC SCH ×2 (15:40→22:42)
[2018-11-26] MEDS: Budesonide/Formoterol 160/4.5 1 PUFF INH IH SCH (20:21)
[2018-11-26] MEDS: Bumetanide 1 MG TABLET PO SCH (22:39)
[2018-11-26] MEDS: methylPREDNISolone 125 MG/2 ML VIAL IVP SCH (22:40)
[2018-11-26] MEDS: *HR* Acetylcysteine 20% 600 MG/3 ML ORAL SYRINGE PO SCH (23:40)
[2018-11-27] MEDS: Ipratropium/Albuterol Neb 3 ML IH SCH ×6 (00:45→20:14)
[2018-11-27] MEDS: methylPREDNISolone 125 MG/2 ML VIAL IVP SCH ×3 (04:27→21:01)
[2018-11-27] MEDS: Budesonide/Formoterol 160/4.5 1 PUFF INH IH SCH ×2 (08:47→20:14)
--- NOTE | 2018-11-27 09:21 | Internal Med History&Physical ---
Date of Encounter: 11/27/18 Time of Encounter: 09:20 Assessment and Plan (1) Acute exacerbation of chronic obstructive airways disease Current visit: Yes Status: Acute Improving with current regimen of IV antibiotics, IV steroids and nebulizer treatments. Will continue current regimen with plan to transition patient to oral regimen with possible discharge home tomorrow. (2) Depression Current visit: No Status: Chronic Stable. Will continue current outpatient regimen. Qualifiers: Depression Type: reactive depression Qualified Code(s): F32.9 - Major depressive disorder, single episode, unspecified (3) ISA (generalized anxiety disorder) Current visit: No Status: Chronic Stable. Will continue current outpatient regimen. (4) Hypertension Current visit: No Status: Chronic Well-controlled. Will continue current outpatient regimen. Qualifiers: Hypertension type: essential hypertension Qualified Code(s): I10 - Essential (primary) hypertension (5) Non-small cell lung cancer Current visit: No Status: Chronic Stable. Continue outpatient treatment per oncology. Qualifiers: Laterality: right Qualified Code(s): C34.91 - Malignant neoplasm of unspecified part of right bronchus or lung Internal Medicine - H&P: HPI Chief complaint: Shortness of breath Admitted From: Home Plans for Post Hospital Care: Home History of present illness: Ms. Huff is a 78 year old female with known severe COPD with a 3L home oxygen required who presented to ED with 2 day history of increased shortness of breath, wheeze, and cough with yellow sputum. No fevers or chills. No pleuritic chest pain. Pt was evaluated in ED with negative CXR. She was treated for a COPD exacerbation and admitted for further evaluation and treatment. Upon evaluation today, patient is improving with IV steroids, IV antibiotics, and nebulizer treatments. She has not returned to her baseline, but is feeling better overall. There were no acute issues overnight. Past Med Surg Social Fam HX - Past Medical History Medical history: cardiomyopathy, CHF, COPD, hyperlipidemia, hypertension Additional medical history: LEFT BBB, GEN ANXIETY DISORDER, B\CHRONIC BRONCHITIS. SVT. THYROID NODULE. HOME O2. Pneumonia, CA NODULE RT LUNG Psychiatric history: anxiety - Past Surgical History Surgical History: appendectomy, cataract Additional surgical history: lung cancer sx - Social History Smoking Status: Former smoker Smokeless Tobacco Status: No Alcohol use: none Drug use: none - Family History Mother Hx Family Cardiac Disorders: Yes (ND) Father Adopted: No Living Status: Age at : 52 Cause of : ND Hx Family Cardiac Disorders: Yes (ND) Internal Medicine - H&P: Meds Tiotropium [Spiriva] 2 puff IH DAILY 03/09/15 [History] Acetylcysteine [Nac] 600 mg PO BID 09/09/17 [History] Atorvastatin [Lipitor] 20 mg PO DAILY 09/09/17 [History] Budesonide/Formoterol 160/4.5 [Symbicort 160/4.5] 2 puff IH BIDR 11/18/17 [History] Digoxin [Lanoxin] 0.125 mg PO DAILY #30 tablet 11/30/17 [Rx] Metoprolol XL (24 HR) Succ [Toprol Xl] 25 mg PO DAILY #30 tab.er.24h 11/30/17 [Rx] Albuterol Sulfate [Ventolin Hfa] 2 puff IH Q4-6H PRN 12/23/17 [History] Buspirone HCl [Buspar] 5 mg PO BID 12/23/17 [History] Albuterol Neb [Proventil Neb] 2.5 mg IH Q4-6H PRN 02/05/18 [History] Mirtazapine [Remeron] 15 mg PO DAILY 02/05/18 [History] ALPRAZolam [Xanax 0.25 MG Tablet] 0.25 mg PO TID PRN 02/08/18 [History] Losartan Potassium [Cozaar] 50 mg PO DAILY 04/29/18 [History] Multivit-Min/FA/Lycopen/Lutein [Centrum Silver Tablet] 1 each PO DAILY 04/29/18 [History] Ascorbic Acid [Vitamin C] 1,000 mg PO DAILY 11/26/18 [History] Bumetanide [Bumex] 1 mg PO BID 11/26/18 [History] Allergy/AdvReac Type Severity Reaction Status Date / Time codeine Allergy Rash Verified 10/15/18 13:35 levofloxacin [From Levaquin] Allergy Joint Pain Verified 10/15/18 13:35 All Systems PM: A 10-system review of systems was performed and is negative for pertinent findings except as documented above in the HPI. - Constitutional Vitals: Temp Pulse Resp BP Pulse Ox 97.6 F 92 16 128/66 90 11/27/18 07:18 11/27/18 07:18 11/27/18 08:47 11/27/18 07:18 11/27/18 08:47 Exam: Gen: Sitting bed, + mild respiratory distress HEENT: NC, AT Neck: Trachea midline, no mass Pulm: + mild respiratory distress, scattered expiratory wheeze throughout with I:E of 1:3, pursed lip breathing, and diminished breath sounds throughout CV: Normal S1 and S2, RRR Abdomen: Soft, ND, NT Ext: No C/C/E Neuro: No appreciable motor/sensor deficits Skin: Warm and dry, no rash Psych: A&Ox3 Internal Med - H&P Results - Labs CBC & Chem 7: 11/26/18 11:24 11/26/18 11:24 Labs: Short CBC 11/26/18 Range/Units 11:24 WBC 15.2 H (4.3-11.1) K/mcL Hgb 10.2 L (11.5-15.4) g/dL Hct 31.5 L (35.3-44.9) % Plt Count 295 (140-400) K/mcL Neutrophils # 13.1 H (1.6-8.9) K/mcL BMP 11/26/18 11:24 Sodium 137 Potassium 3.9 Chloride 95 L Carbon Dioxide 31 H BUN 26 H Creatinine 1.18 Glucose 196 H Calcium 9.6 Cardiac Enzymes 11/26/18 Range/Units 11:24 Troponin I < 0.03 (< 0.04) ng/mL - Impressions ITS Impressions Chest X-Ray 11/26/18 11:07 IMPRESSION: Stable examination with findings of COPD and emphysema. Biapical and bibasilar scarring is again demonstrated. D/ / 11/26/2018 11:44:24 Kris Baker MD / [email or web address] Interpreting Provider: Kris Baker MD
[2018-11-27] MEDS ORDERED: Tiotropium 18 MCG inhalation IH SCH (10:00)
[2018-11-27] MEDS: Multivit/Ca/Min/Fe/FA 1 TAB TABLET PO SCH (11:08)
[2018-11-27] MEDS: Metoprolol XL (24 HR) Succ 25 MG TAB.ER.24H PO SCH (11:08)
[2018-11-27] MEDS: Ascorbic Acid 500 MG TABLET PO SCH (11:08)
[2018-11-27] MEDS: *HR* Digoxin 0.125 MG TABLET PO SCH (11:08)
[2018-11-27] MEDS: Bumetanide 1 MG TABLET PO SCH ×2 (11:09→21:01)
[2018-11-27] MEDS: Mirtazapine 15 MG TABLET PO SCH (11:09)
[2018-11-27] MEDS: ALPRAZolam 0.25 MG TABLET PO PRN ×3 (11:10→23:55)
[2018-11-27] MEDS: cefTRIAXone 1,000 MG in 0.9 % Sodium Chloride Mini Bag 100 ML IVPB SCH (11:10)
[2018-11-27] MEDS: *HR* Acetylcysteine 20% 600 MG/3 ML ORAL SYRINGE PO SCH (11:11)
[2018-11-27] MEDS ORDERED: Azithromycin 500 MG in D5% in Water 250 ML IVPB SCH (12:00)
[2018-11-28] MEDS: Ipratropium/Albuterol Neb 3 ML IH SCH ×3 (00:15→08:58)
[2018-11-28] MEDS: methylPREDNISolone 125 MG/2 ML VIAL IVP SCH (04:25)
[2018-11-28 07:09] VITALS: BP 141/76
[2018-11-28] MEDS: Mirtazapine 15 MG TABLET PO SCH (07:44)
[2018-11-28] MEDS: *HR* Digoxin 0.125 MG TABLET PO SCH (07:45)
[2018-11-28] MEDS: Bumetanide 1 MG TABLET PO SCH (07:45)
[2018-11-28] MEDS: ALPRAZolam 0.25 MG TABLET PO PRN (07:45)
[2018-11-28] MEDS: Metoprolol XL (24 HR) Succ 25 MG TAB.ER.24H PO SCH (07:45)
[2018-11-28] MEDS: Multivit/Ca/Min/Fe/FA 1 TAB TABLET PO SCH (07:45)
[2018-11-28] MEDS: Ascorbic Acid 500 MG TABLET PO SCH (07:45)
[2018-11-28] MEDS: cefTRIAXone 1,000 MG in 0.9 % Sodium Chloride Mini Bag 100 ML IVPB SCH (07:46)
--- NOTE | 2018-11-28 09:05 | Discharge Summary ---
Orders not resulted at time of discharge: Pending orders 11/26/18 11:35 Culture,Blood [BC] Stat Date of Encounter: 11/28/18 Time of Encounter: 08:57 - Discharge Diagnosis (1) Acute exacerbation of chronic obstructive airways disease Priority: Primary Status: Acute Comments: Resolving and near baseline with inpatient treatment. She will be discharged with macrolide and prolonged steroid taper. (2) Depression Priority: Secondary Status: Chronic Qualifiers: Depression Type: reactive depression Qualified Code(s): F32.9 - Major depressive disorder, single episode, unspecified (3) ISA (generalized anxiety disorder) Priority: Secondary Status: Chronic (4) Hypertension Priority: Secondary Status: Chronic Qualifiers: Hypertension type: essential hypertension Qualified Code(s): I10 - Essential (primary) hypertension (5) Non-small cell lung cancer Priority: Secondary Status: Chronic Qualifiers: Laterality: right Qualified Code(s): C34.91 - Malignant neoplasm of unspecified part of right bronchus or lung Hospital course: Ms. Huff is a 78 year old female with known severe COPD with a 3L home oxygen required who presented to ED with 2 day history of increased shortness of breath, wheeze, and cough with yellow sputum. CXR was negative for consolidation. She was treated for a COPD exacerbation and admitted for further evaluation and treatment. Patient subsequently improved with IV steroids, IV antibiotics, and nebulizer treatments. She was near baseline at time of discharge and will be given azithromycin to complete a 5 day course and placed on a prolonged steroid taper. - Time Spent with Patient Total time spent providing and/or coordinating discharge services: - Discharge Medications Prescriptions: New predniSONE [PredniSONE] See Taper PO DAILY #14 tablet Azithromycin [Zithromax] 250 mg PO DAILY #3 tablet Continued Buspirone HCl [Buspar] 5 mg PO BID Albuterol Sulfate [Ventolin Hfa] 2 puff IH Q4-6H PRN PRN Reason: Shortness Of Breath Mirtazapine [Remeron] 15 mg PO DAILY ALPRAZolam [Xanax 0.25 MG Tablet] 0.25 mg PO TID PRN PRN Reason: Anxiety Losartan Potassium [Cozaar] 50 mg PO DAILY Multivit-Min/FA/Lycopen/Lutein [Centrum Silver Tablet] 1 each PO DAILY Tiotropium [Spiriva] 2 puff IH DAILY Acetylcysteine [Nac] 600 mg PO BID Atorvastatin [Lipitor] 20 mg PO DAILY Budesonide/Formoterol 160/4.5 [Symbicort 160/4.5] 2 puff IH BIDR Metoprolol XL (24 HR) Succ [Toprol Xl] 25 mg PO DAILY #30 tab.er.24h Digoxin [Lanoxin] 0.125 mg PO DAILY #30 tablet Albuterol Neb [Proventil Neb] 2.5 mg IH Q4-6H PRN PRN Reason: Shortness Of Breath Bumetanide [Bumex] 1 mg PO BID Ascorbic Acid [Vitamin C] 1,000 mg PO DAILY Home Medications: Tiotropium [Spiriva] 2 puff IH DAILY 03/09/15 [History] Acetylcysteine [Nac] 600 mg PO BID 09/09/17 [History] Atorvastatin [Lipitor] 20 mg PO DAILY 09/09/17 [History] Budesonide/Formoterol 160/4.5 [Symbicort 160/4.5] 2 puff IH BIDR 11/18/17 [History] Digoxin [Lanoxin] 0.125 mg PO DAILY #30 tablet 11/30/17 [Rx] Metoprolol XL (24 HR) Succ [Toprol Xl] 25 mg PO DAILY #30 tab.er.24h 11/30/17 [Rx] Albuterol Sulfate [Ventolin Hfa] 2 puff IH Q4-6H PRN 12/23/17 [History] Buspirone HCl [Buspar] 5 mg PO BID 12/23/17 [History] Albuterol Neb [Proventil Neb] 2.5 mg IH Q4-6H PRN 02/05/18 [History] Mirtazapine [Remeron] 15 mg PO DAILY 02/05/18 [History] ALPRAZolam [Xanax 0.25 MG Tablet] 0.25 mg PO TID PRN 02/08/18 [History] Losartan Potassium [Cozaar] 50 mg PO DAILY 04/29/18 [History] Multivit-Min/FA/Lycopen/Lutein [Centrum Silver Tablet] 1 each PO DAILY 04/29/18 [History] Ascorbic Acid [Vitamin C] 1,000 mg PO DAILY 11/26/18 [History] Bumetanide [Bumex] 1 mg PO BID 11/26/18 [History] Azithromycin [Zithromax] 250 mg PO DAILY #3 tablet 11/28/18 [Rx] predniSONE [PredniSONE] See Taper PO DAILY #14 tablet 11/28/18 [Rx] Allergies/Adverse Reactions: Allergy/AdvReac Type Severity Reaction Status Date / Time codeine Allergy Rash Verified 10/15/18 13:35 levofloxacin [From Levaquin] Allergy Joint Pain Verified 10/15/18 13:35 Date of admission: 11/26/18 12:08 Primary care physician: Chung Henderson MD Consults: None Discharging clinician: Chung Henderson Anticipated date of discharge: 11/28/18 - Constitutional Vitals: Temp Pulse Resp BP Pulse Ox 97.7 F 90 16 141/76 90 11/28/18 07:04 11/28/18 07:04 11/28/18 07:04 11/28/18 07:04 11/28/18 07:04 Exam: Gen: sitting in bed, NAD HEENT: NC, AT Neck: Trachea midline, no mass Pulm: No respiratory distress, diminished breath sounds throughout with faint expiratory wheeze CV: Normal S1 and S2, RRR Abdomen: Soft, ND, NT Ext: No C/C/E Neuro: No appreciable motor/sensor deficits Skin: Warm and dry, no rash Psych: A&Ox3 - Patient Status Disposition: Home, Self-Care Condition: Fair Functional capacity at discharge: independent ambulation Overall status at discharge: patient is progressing back to baseline - Discharge Instructions Follow Up With: Chung Henderson MD [Primary Care Provider] - 1 week - Diet and Activity Activity: resume usual activities as tolerated Diet: advance to your usual diet
[2018-11-28] MEDS: Budesonide/Formoterol 160/4.5 1 PUFF INH IH SCH (09:07)
== END 2018-11-28 10:52 | disposition home or self-care (01) ==
LOC: INPPIK 11:00 → EMEROOPIK 11:00 → INPPIK 12:54
PROVIDERS: ADMIT Internal Medicine; ATTEND Internal Medicine

== ENCOUNTER 2019-01-05 14:38 | Observation (INO) ==
[2019-01-05] MEDS ORDERED: 0.9 % Sodium Chloride 1,000 ML ONE (14:56)
[2019-01-05] MEDS ORDERED: *HR* Adenosine 6 MG/2 ML SYRINGE IVP ONE (14:56)
[2019-01-05] MEDS ORDERED: 0.9 % Sodium Chloride 1,000 ML IVC ONE (15:06)
--- NOTE | 2019-01-05 15:13 | Emergency Department Note ---
Disposition Clinical Impression: Tachycardia Disposition: Admitted As Inpatient Condition: Fair Referrals: Chung Henderson MD [Primary Care Provider] - Forms: ED Satisfaction Letter Time of Disposition: 17:16 SOB HPI - General Chief Complaint: ED Shortness of Breath/Dyspnea Stated Complaint: worsening shortness of breath Time Seen by Provider: 01/05/19 14:53 Source: patient Mode of arrival: private vehicle Limitations: no limitations Nursing Notes Reviewed: Yes Vital Signs Reviewed: Yes - History of Present Illness Pt Subjective Complaint: shortness of breath Onset (ago): hour(s) (Abruptly worsened this morning) Severity: severe Consistency/Duration: constant Worsens with: exertion Known history of: COPD, congestive heart failure Associated symptoms: Denies: chest pain, palpitations Treatment prior to arrival: none Cough present: No - Related Data Home Medications Medication Instructions Recorded Confirmed Tiotropium [Spiriva] 2 puff IH DAILY 03/09/15 01/05/19 Acetylcysteine [Nac] 600 mg PO BID 09/09/17 01/05/19 Atorvastatin [Lipitor] 20 mg PO DAILY 09/09/17 01/05/19 Budesonide/Formoterol 160/4.5 2 puff IH BIDR 11/18/17 01/05/19 [Symbicort 160/4.5] Albuterol Sulfate [Ventolin Hfa] 2 puff IH Q4-6H PRN 12/23/17 01/05/19 Buspirone HCl [Buspar] 5 mg PO BID 12/23/17 01/05/19 Albuterol Neb [Proventil Neb] 2.5 mg IH Q4-6H PRN 02/05/18 01/05/19 Mirtazapine [Remeron] 15 mg PO DAILY 02/05/18 01/05/19 ALPRAZolam [Xanax 0.25 MG Tablet] 0.25 mg PO TID PRN 02/08/18 01/05/19 Losartan Potassium [Cozaar] 50 mg PO DAILY 04/29/18 01/05/19 Multivit-Min/FA/Lycopen/Lutein 1 each PO DAILY 04/29/18 01/05/19 [Centrum Silver Tablet] Ascorbic Acid [Vitamin C] 1,000 mg PO DAILY 11/26/18 01/05/19 Bumetanide [Bumex] 1 mg PO BID 11/26/18 01/05/19 Cefdinir [Omnicef] 300 mg PO BID 01/05/19 01/05/19 Previous Rx's Medication Instructions Recorded Digoxin [Lanoxin] 0.125 mg PO DAILY #30 tablet 11/30/17 Metoprolol XL (24 HR) Succ [Toprol 25 mg PO DAILY #30 tab.er.24h 11/30/17 Xl] predniSONE [PredniSONE] See Taper PO DAILY #14 tablet 11/28/18 Allergies Allergy/AdvReac Type Severity Reaction Status Date / Time codeine Allergy Rash Verified 10/15/18 13:35 levofloxacin [From Levaquin] Allergy Joint Pain Verified 10/15/18 13:35 All systems ED: reviewed and negative except as stated. Constitutional: Denies: fever, chills ENT ED: Denies: ear pain, throat pain, congestion Cardiovascular: Reports: dyspnea on exertion. Denies: chest pain, palpitations Respiratory: Reports: dyspnea Gastrointestinal: Denies: abdominal pain, diarrhea Musculoskeletal: Denies: back pain Integumentary: Denies: rash Neurological: Denies: headache Past Medical History - Past Medical History Attestation: Yes The following information was validated with the patient. Source: patient, old records reviewed, nursing notes reviewed Medical history: Reports: cardiomyopathy, CHF, COPD, hyperlipidemia, hypertension Surgical history: Reports: appendectomy, cataract Psychiatric history: Reports: anxiety - Social History Smoking Status: Former smoker Smokeless Tobacco Status: No Alcohol use: Reports: none Drug use: Reports: none Physical Exam - General Limitations: no limitations General appearance: alert, other (Tachypneic with pursed lip breathing and prolonged expiratory phase but speaking in full sentences.) - Head Head exam: atraumatic, normocephalic, normal inspection - Eye Eye exam: Present: normal appearance, PERRL, EOMI. Absent: scleral icterus, conjunctival injection - ENT ENT exam: normal exam, normal oropharynx, mucous membranes moist, normal external ear exam - Neck Neck exam: Present: normal inspection, full ROM, trachea midline - Chest Chest inspection: Present: normal inspection, symmetric chest wall rise. Absent: tenderness - Respiratory Respiratory exam: Present: normal lung sounds bilaterally, prolonged expiratory phase. Absent: wheezes, stridor - Cardiovascular Cardiovascular exam: Present: normal rhythm, tachycardia - Abdominal Exam Abdominal exam: Present: soft, Non-Tender, normal bowel sounds - Extremities Exam Extremities exam: Present: normal inspection - Neurological Exam Neurological exam: Present: alert, oriented X3 - Psychiatric Psychiatric exam: Present: normal affect, normal mood - Skin Skin exam: Present: warm, dry. Absent: rash Course Course Narrative: Patient presents with shortness of breath. She is chronically short of breath but suddenly worsened this morning. We see her heart rate at 155. Is little bit wide complex but on previous EKG she has an intraventricular conduction delay as well. Thus I think this is SVT. She has a pacemaker/defibrillator in place that was not firing so again I do not think it is ventricular tachycardia. We gave 12 mg of Adenocard. Heart rate went down into the 80s for a short time and then kicked back up to 150s. We will provide some Cardizem and initiate a workup. Disposition will be based on diagnostic results and reevaluation. - Reevaluation(s) Reevaluation #1: Patient's labs look okay except for some slight anemia and elevation of white count. It is unclear the cause of elevated white count. I do not find any source of infection.. We have given the Adenocard and only slow down the heart rate for short time he came back up. We gave 15 of Cardizem and that slowed things down but crept back up to the 120s and 130s again. I started her on a Cardizem drip of 5 mg an hour and her heart rate is been about 90-95 the rest of the time. Patient needs to be admitted to ensure control heart rate and further workup for this problem. I have already discussed the case with the hospitalist, Dr. Dave, and he is accepted the patient for admission. Time: 17:15 - Consultations Consultation #1: Dr. Dave, hospitalist - I discussed the case with the hospitalist. He has accepted the patient for admission. Time: 17:00 Vital Signs Temperature 98.2 F 01/05/19 14:39 Pulse Rate 150 01/05/19 14:39 Respiratory Rate 30 01/05/19 14:39 Blood Pressure 113/76 01/05/19 14:39 O2 Sat by Pulse Oximetry 94 01/05/19 14:39 Temperature 98.2 F 01/05/19 14:39 Pulse Rate 98 01/05/19 16:40 Respiratory Rate 16 01/05/19 16:40 Blood Pressure 111/63 01/05/19 16:40 O2 Sat by Pulse Oximetry 95 01/05/19 16:40 Oxygen Delivery Oxygen Delivery Nasal Cannula Shortness of Breath/Dyspnea - Medical Records Medical records reviewed: Yes I reviewed the patient's medical records. - Lab Data Lab results reviewed: Yes I reviewed the patient's lab results. Result diagrams: 01/05/19 15:25 01/05/19 15:25 Lab Results 01/05/19 01/05/19 01/05/19 Range/Units 15:25 15:25 15:25 WBC 16.1 H (4.3-11.1) K/mcL RBC 3.32 L (3.82-4.97) M/mcL Hgb 9.6 L (11.5-15.4) g/dL Hct 30.3 L (35.3-44.9) % MCV 91.3 (83.0-100.0) fL MCH 28.9 (28.0-33.3) pg MCHC 31.7 (31.6-35.5) g/dL RDW 14.6 H (11.5-14.5) % Plt Count 276 (140-400) K/mcL MPV 10.0 (9.4-12.4) fL Immature Gran % 0.8 (0-4) % Seg Neutrophils % 85.6 % Lymphocytes % 6.3 % Monocytes % 6.8 % Eosinophils % 0.2 % Basophils % 0.3 % Neutrophils # 13.8 H (1.6-8.9) K/mcL Lymphocytes # 1.0 (0.6-4.6) K/mcL Monocytes # 1.1 (0.0-1.3) K/mcL Eosinophils # 0.0 (0.0-0.6) K/mcL Basophils # 0.1 (0.0-0.2) K/mcL PT (9.4-12.1) Seconds INR APTT 32.0 (26.0-36.0) Seconds Sodium 138 (136-145) mEq/L Potassium 3.8 (3.5-5.1) mEq/L Chloride 97 L (98-107) mEq/L Carbon Dioxide 32 H (23-29) mEq/L BUN 20 (8-23) mg/dL Creatinine 1.08 (0.60-1.20) mg/dL Est GFR ( Amer) 60 (> 60) Est GFR (Non-Af Amer) 49 L (> 60) BUN/Creatinine Ratio 19 (6-26) Glucose 115 H (70-105) mg/dL Calculated Osmolality 290 (280-300) Lactic Acid (0.5-2.2) mmol/L Calcium 8.9 (8.6-10.3) mg/dL Troponin I (< 0.04) ng/mL B-Natriuretic Peptide (Less than 100) pg/mL Urine Color (Yellow) Urine Clarity (Clear) Urine pH (5.0-8.0) pH Units Ur Specific [place] (1.010-1.025) Urine Protein (Neg-Trace) mg/dL Urine Glucose (UA) (Normal) mg/dL Urine Ketones (Negative) mg/dL Urine Blood (Negative) Urine Nitrite (Negative) Urine Bilirubin (Negative) Urine Urobilinogen (Normal) mg/dL Ur Leukocyte Esterase (Negative) Ur Culture Indicated? (NO) 01/05/19 01/05/19 01/05/19 Range/Units 15:25 15:25 15:25 WBC (4.3-11.1) K/mcL RBC (3.82-4.97) M/mcL Hgb (11.5-15.4) g/dL Hct (35.3-44.9) % MCV (83.0-100.0) fL MCH (28.0-33.3) pg MCHC (31.6-35.5) g/dL RDW (11.5-14.5) % Plt Count (140-400) K/mcL MPV (9.4-12.4) fL Immature Gran % (0-4) % Seg Neutrophils % % Lymphocytes % % Monocytes % % Eosinophils % % Basophils % % Neutrophils # (1.6-8.9) K/mcL Lymphocytes # (0.6-4.6) K/mcL Monocytes # (0.0-1.3) K/mcL Eosinophils # (0.0-0.6) K/mcL Basophils # (0.0-0.2) K/mcL PT 12.5 H (9.4-12.1) Seconds INR 1.1 APTT (26.0-36.0) Seconds Sodium (136-145) mEq/L Potassium (3.5-5.1) mEq/L Chloride (98-107) mEq/L Carbon Dioxide (23-29) mEq/L BUN (8-23) mg/dL Creatinine (0.60-1.20) mg/dL Est GFR ( Amer) (> 60) Est GFR (Non-Af Amer) (> 60) BUN/Creatinine Ratio (6-26) Glucose (70-105) mg/dL Calculated Osmolality (280-300) Lactic Acid 1.0 (0.5-2.2) mmol/L Calcium (8.6-10.3) mg/dL Troponin I (< 0.04) ng/mL B-Natriuretic Peptide 228 H (Less than 100) pg/mL Urine Color (Yellow) Urine Clarity (Clear) Urine pH (5.0-8.0) pH Units Ur Specific [place] (1.010-1.025) Urine Protein (Neg-Trace) mg/dL Urine Glucose (UA) (Normal) mg/dL Urine Ketones (Negative) mg/dL Urine Blood (Negative) Urine Nitrite (Negative) Urine Bilirubin (Negative) Urine Urobilinogen (Normal) mg/dL Ur Leukocyte Esterase (Negative) Ur Culture Indicated? (NO) 01/05/19 01/05/19 Range/Units 15:25 16:13 WBC (4.3-11.1) K/mcL RBC (3.82-4.97) M/mcL Hgb (11.5-15.4) g/dL Hct (35.3-44.9) % MCV (83.0-100.0) fL MCH (28.0-33.3) pg MCHC (31.6-35.5) g/dL RDW (11.5-14.5) % Plt Count (140-400) K/mcL MPV (9.4-12.4) fL Immature Gran % (0-4) % Seg Neutrophils % % Lymphocytes % % Monocytes % % Eosinophils % % Basophils % % Neutrophils # (1.6-8.9) K/mcL Lymphocytes # (0.6-4.6) K/mcL Monocytes # (0.0-1.3) K/mcL Eosinophils # (0.0-0.6) K/mcL Basophils # (0.0-0.2) K/mcL PT (9.4-12.1) Seconds INR APTT (26.0-36.0) Seconds Sodium (136-145) mEq/L Potassium (3.5-5.1) mEq/L Chloride (98-107) mEq/L Carbon Dioxide (23-29) mEq/L BUN (8-23) mg/dL Creatinine (0.60-1.20) mg/dL Est GFR ( Amer) (> 60) Est GFR (Non-Af Amer) (> 60) BUN/Creatinine Ratio (6-26) Glucose (70-105) mg/dL Calculated Osmolality (280-300) Lactic Acid (0.5-2.2) mmol/L Calcium (8.6-10.3) mg/dL Troponin I 0.03 (< 0.04) ng/mL B-Natriuretic Peptide (Less than 100) pg/mL Urine Color Yellow (Yellow) Urine Clarity Clear (Clear) Urine pH 5.0 (5.0-8.0) pH Units Ur Specific [place] <= 1.005 L (1.010-1.025) Urine Protein Negative (Neg-Trace) mg/dL Urine Glucose (UA) Normal (Normal) mg/dL Urine Ketones Negative (Negative) mg/dL Urine Blood Negative (Negative) Urine Nitrite Negative (Negative) Urine Bilirubin Negative (Negative) Urine Urobilinogen Normal (Normal) mg/dL Ur Leukocyte Esterase Negative (Negative) Ur Culture Indicated? NO (NO) - Radiology Data Radiology results reviewed: Yes I reviewed the patient's radiology results. - EKG Data EKG attestation: Yes I reviewed and interpreted this EKG. EKG results narrative: Twelve-lead EKG performed at 2:41 PM. Ordered, reviewed and interpreted by ED physician shows sinus tachycardia rate 150. It a wide complex with an intraventricular conduction delay. Normal axis. Good hour progression across precordium.
[2019-01-05 15:34] LABS: Hematocrit 30.3 % (35.3-44.9); Hemoglobin 9.6 g/dL (11.5-15.4); Mean Corpuscular HGB Conc 31.7 g/dL (31.6-35.5); Mean Corpuscular Hemoglobin 28.9 pg (28.0-33.3); Mean Corpuscular Volume 91.3 fL (83.0-100.0); Platelet Count 276 K/mcL (140-400); Red Blood Count 3.32 M/mcL (3.82-4.97); Red Cell Distribution Width 14.6 % (11.5-14.5); Segmented Neutrophils % 85.6 %; White Blood Count 16.1 K/mcL (4.3-11.1)
[2019-01-05 15:35] LABS: Basophils # 0.1 K/mcL (0.0-0.2); Basophils % 0.3 %; Eosinophils % 0.2 %; Immature Granulocytes % 0.8 % (0-4); Lymphocytes % 6.3 %; Monocytes # 1.1 K/mcL (0.0-1.3); Monocytes % 6.8 %; Neutrophils # 13.8 K/mcL (1.6-8.9)
[2019-01-05 15:42] LABS: INR 1.1; Prothrombin Time 12.5 Seconds (9.4-12.1)
[2019-01-05 15:50] LABS: Calcium 8.9 mg/dL (8.6-10.3); Potassium 3.8 mEq/L (3.5-5.1)
[2019-01-05] MEDS ORDERED: *HR* Adenosine 6 MG/2 ML VIAL IVP ONE (16:14)
[2019-01-05 16:19] LABS: Bilirubin,Urine Negative (Negative); Blood,Urine Negative (Negative); Clarity,Urine Clear (Clear); Color,Urine Yellow (Yellow); Glucose,Urine (UA) Normal (Normal); Ketones,Urine Negative (Negative); Leukocyte Esterase,Urine Negative (Negative); Nitrite,Urine Negative (Negative); Protein,Urine Negative (Neg-Trace); Specific Gravity,Urine <= 1.005 (1.010-1.025); Urobilinogen,Urine Normal (Normal)
[2019-01-05] MEDS ORDERED: Naloxone 0.4 MG/ML INJ IVP PRN (18:03)
[2019-01-05] MEDS ORDERED: Bumetanide 1 MG TABLET PO SCH (21:00)
[2019-01-05] MEDS: ALPRAZolam 0.25 MG TABLET PO PRN (21:07)
[2019-01-05] MEDS: Ipratropium/Albuterol Neb 3 ML IH SCH (21:59)
[2019-01-05] MEDS: Budesonide/Formoterol 160/4.5 1 PUFF INH IH SCH (22:00)
[2019-01-06] MEDS: Ipratropium/Albuterol Neb 3 ML IH SCH ×2 (03:32→09:35)
[2019-01-06] MEDS: Multivit/Ca/Min/Fe/FA 1 TAB TABLET PO SCH (08:26)
[2019-01-06] MEDS: Mirtazapine 15 MG TABLET PO SCH (08:26)
[2019-01-06] MEDS: *HR* Digoxin 0.125 MG TABLET PO SCH (08:27)
[2019-01-06] MEDS: Ascorbic Acid 500 MG TABLET PO SCH (08:27)
[2019-01-06] MEDS: Bumetanide 1 MG TABLET PO SCH ×2 (08:27→17:45)
[2019-01-06] MEDS: ALPRAZolam 0.25 MG TABLET PO PRN ×2 (08:29→17:49)
[2019-01-06] MEDS ORDERED: Metoprolol XL (24 HR) Succ 25 MG TAB.ER.24H PO SCH (09:00)
[2019-01-06] MEDS: Budesonide/Formoterol 160/4.5 1 PUFF INH IH SCH ×2 (09:34→21:52)
[2019-01-06] MEDS: Tiotropium 18 MCG inhalation IH SCH (09:34)
[2019-01-06] MEDS ORDERED: Ipratropium/Albuterol Neb 3 ML IH PRN (12:00)
[2019-01-06] MEDS ORDERED: Albuterol 2.5 MG/3 ML NEBULIZER IH PRN (12:11)
--- NOTE | 2019-01-06 12:16 | Internal Med History&Physical ---
Date of Encounter: 01/06/19 Time of Encounter: 11:30 Assessment and Plan (1) SVT (supraventricular tachycardia) Current visit: Yes Status: Acute She has been started on Cardizem drip. She will be converted to oral Cardizem. Continue metoprolol and Lanoxin. (2) Hypertension Current visit: No Status: Chronic Continue Cozaar and metoprolol with addition of Cardizem. Qualifiers: Hypertension type: essential hypertension Qualified Code(s): I10 - Essential (primary) hypertension (3) Anemia Current visit: No Status: Acute Anemia testing will be ordered. Qualifiers: Anemia type: other cause Other causes of anemia: other cause, not classified Qualified Code(s): D64.89 - Other specified anemias (4) COPD (chronic obstructive pulmonary disease) with acute bronchitis Current visit: No Status: Chronic Continue inhalers and supplemental oxygen. (5) Non-small cell lung cancer Current visit: No Status: Chronic As per oncologist Qualifiers: Laterality: right Qualified Code(s): C34.91 - Malignant neoplasm of unspecified part of right bronchus or lung (6) Cardiomyopathy Current visit: No Status: Chronic Status post AICD placement. Continue Cozaar, Lanoxin, Bumex and metoprolol. Qualifiers: Cardiomyopathy type: dilated Qualified Code(s): I42.0 - Dilated cardiomyopathy Internal Medicine - H&P: HPI Chief complaint: Rapid heart rate Admitted From: Emergency Dept Plans for Post Hospital Care: Home History of present illness: Ms. Huff is a 78 year old female who came to emergency room after she expressed increased dyspnea at home. She checked her oxygen saturation and pulse and found heart rate significantly elevated. She came to emergency room where she was found to have heart rate proximately 150. She was started on Cardizem drip for SVT and admitted to [facility] floor for ongoing care needs. She denies previous similar episodes of rapid heart rate. She reported she had a "heart rhythm" abnormality approximately 2014 but does not remember details. She saw a event management consultant for one visit and was told she did not need to return. She had AICD placement April 2018 at [facility] with revision September 2018 at [facility] for n onischemic cardiomyopathy. She had an echocardiogram done during her August 2017 [facility] swing bed stay which showed LVEF of 30% with indeterminate diastolic function. There was mild aortic stenosis and mild mitral regurgitation but no other significant valvular abnormalities. A small pericardial effusion was seen. Limited echocardiogram 02/16/2018 showed LVEF of 30%. She had C 10/02/2017 to further evaluate the cardiomyopathy. There was mild 2 vessel disease with 50% stenosis in the mid LAD 25% stenosis in the proximal RCA. The circumflex, first marginal, and LMCA were angiographically free of disease. She has history of hypertension but no [place] angina DVT or pulmonary embolus. Past Med Surg Social Fam HX - Past Medical History Medical history: cardiomyopathy, CHF, COPD, hyperlipidemia, hypertension, SVT Additional medical history: LEFT BBB, GEN ANXIETY DISORDER, B\\CHRONIC BRONCHITIS. SVT. THYROID NODULE. HOME O2. Pneumonia, [place] NODULE RT LUNG. hx of radiation to lung Psychiatric history: anxiety - Past Surgical History Surgical History: pacemaker Additional surgical history: lung cancer sx - Social History Smoking Status: Former smoker Smokeless Tobacco Status: No Alcohol use: none Drug use: none - Family History Mother Hx Family Cardiac Disorders: Yes ([place]) Father Adopted: No Living Status: Hx Family Cardiac Disorders: Yes ([place]) Internal Medicine - H&P: Meds Tiotropium [Spiriva] 2 puff IH DAILY 03/09/15 [History] Acetylcysteine [Nac] 600 mg PO BID 09/09/17 [History] Atorvastatin [Lipitor] 20 mg PO DAILY 09/09/17 [History] Budesonide/Formoterol 160/4.5 [Symbicort 160/4.5] 2 puff IH BIDR 11/18/17 [History] Digoxin [Lanoxin] 0.125 mg PO DAILY #30 tablet 11/30/17 [Rx] Metoprolol XL (24 HR) Succ [Toprol Xl] 25 mg PO DAILY #30 tab.er.24h 11/30/17 [Rx] Albuterol Sulfate [Ventolin Hfa] 2 puff IH Q4-6H PRN 12/23/17 [History] Buspirone HCl [Buspar] 5 mg PO BID 12/23/17 [History] Albuterol Neb [Proventil Neb] 2.5 mg IH Q4-6H PRN 02/05/18 [History] Mirtazapine [Remeron] 15 mg PO DAILY 02/05/18 [History] ALPRAZolam [Xanax 0.25 MG Tablet] 0.25 mg PO TID PRN 02/08/18 [History] Losartan Potassium [Cozaar] 50 mg PO DAILY 04/29/18 [History] Multivit-Min/FA/Lycopen/Lutein [Centrum Silver Tablet] 1 each PO DAILY 04/29/18 [History] Ascorbic Acid [Vitamin C] 1,000 mg PO DAILY 11/26/18 [History] Bumetanide [Bumex] 1 mg PO BID 11/26/18 [History] predniSONE [PredniSONE] See Taper PO DAILY #14 tablet 11/28/18 [Rx] Cefdinir [Omnicef] 300 mg PO BID 01/05/19 [History] Allergy/AdvReac Type Severity Reaction Status Date / Time codeine Allergy Rash Verified 10/15/18 13:35 levofloxacin [From Levaquin] Allergy Joint Pain Verified 10/15/18 13:35 All Systems PM: A 10-system review of systems was performed and is negative for pertinent findings except as documented above in the HPI. Review of systems: Review of systems from her October 2017 [facility] hospitalization were reviewed and revised as below. Gen.: Her weight has not significantly changed from 54.613 kg on 08/15/2015 to 55.111 kg now Cardiovascular: As per history of present illness Respiratory: She quit smoking 2015 after smoking for over 50 years never exceeding 1 pack per day. She had pulmonary function tests approximately July 2015 that showed very severe obstructive lung disease without significant bronchodilator response. Her FEV1 was 27% predicted and she had evidence of air trapping. She wears oxygen at home nearly 24/7. She was found to have sleep apnea but could not tolerate BiPAP. She was diagnosed with lung cancer December 2017 and had 5 XRT treatments at [facility]. She follows with oncology. GI: She denies disorders of her liver gallbladder or exocrine pancreas. : No known hematuria dysuria or kidney stones. Neurologic: No history of large distribution strokes or seizures. Endocrine: She has had right thyroid "enlargement" but is uncertain if it is a cyst or nodule. She has a history of hyperlipidemia but no known diabetes. Hematology/oncology: She was diagnosed with lung cancer as per above. She denies other internal malignancies. She was unaware she was anemic on labs in emergency room. Psychiatric: She has anxiety and depression. [place] skeletal: She denies arthritis gout or osteoporosis. - Constitutional Vitals: Temp Pulse Resp BP Pulse Ox 97.9 F 85 16 131/70 94 01/06/19 12:00 01/06/19 12:00 01/06/19 12:00 01/06/19 12:00 01/06/19 12:00 Exam: Gen.: She is a well-developed well-nourished female resting comfortably in bed who appears in no acute distress HEENT: Head is atraumatic and normocephalic. Eyes: EOMI. There is no scleral icterus. Mouth: Mucosa is moist. Neck: Supple and nontender. There is no thyromegaly or adenopathy noted. Heart: Regular without murmurs gallops or ectopics Lungs: No wheezes or crackles are heard. She has egophony in the right upper lung posteriorly. Abdomen: Soft and nontender. No masses or guarding are noted. Extremities: She is wearing GAEL hose which I did not remove. There is trace to 1+ edema of the lower anterior shins bilaterally. She has mild DJD changes of her hands. Neurologic: Mental status: She is talkative and a good historian. Cranial nerves: Smile is symmetric. Forehead wrinkles bilaterally. Tongue protrudes midline. EOMI. Motor: There is no pronator drift. Symmetric: Finger to nose is intact bilaterally. Skin: Warm and dry Internal Med - H&P Results - Labs CBC & Chem 7: 01/05/19 15:25 01/05/19 15:25 Labs: Short CBC 01/05/19 Range/Units 15:25 WBC 16.1 H (4.3-11.1) K/mcL Hgb 9.6 L (11.5-15.4) g/dL Hct 30.3 L (35.3-44.9) % Plt Count 276 (140-400) K/mcL Neutrophils # 13.8 H (1.6-8.9) K/mcL BMP 01/05/19 15:25 Sodium 138 Potassium 3.8 Chloride 97 L Carbon Dioxide 32 H BUN 20 Creatinine 1.08 Glucose 115 H Calcium 8.9 Cardiac Enzymes 01/05/19 01/05/19 01/06/19 Range/Units 15:25 21:29 04:12 Troponin I 0.03 0.06 H* 0.04 H* (< 0.04) ng/mL 01/06/19 Range/Units 09:40 Troponin I 0.04 H* (< 0.04) ng/mL Urine 01/05/19 Range/Units 16:13 Urine Color Yellow (Yellow) Urine Clarity Clear (Clear) Urine pH 5.0 (5.0-8.0) pH Units Ur Specific [place] <= 1.005 L (1.010-1.025) Urine Protein Negative (Neg-Trace) mg/dL Urine Glucose (UA) Normal (Normal) mg/dL - Impressions ITS Impressions Chest X-Ray 01/05/19 15:05 IMPRESSION: Redemonstration of small bilateral pleural effusions, nonspecific. Correlate with clinical evidence of pulmonary edema. D/ / Roberto Quesada MD / Roberto Quesada MD Interpreting Provider: Roberto Quesada MD - VTE Documentation of Mechanical Device: Graduated compression elastic hosiery
[2019-01-06 13:04] LABS: Magnesium 1.7 mg/dL (1.6-2.6)
[2019-01-06 13:06] LABS: Thyroid Stimulating Hormone 1.628 mcIU/mL (0.340-5.600)
[2019-01-06] MEDS: Diltiazem CD (24hr) 120 MG CAPSULE PO SCH (13:08)
--- NOTE | 2019-01-06 15:20 | Electrocardiograph Report ---
[place] [id number] Test Date: 2019-01-05 Pat Name: Marah Huff Department: EDP-12 Room: [facility] Gender: F Judicial Registrar: : [id number] Requested By: Emiliano Brewer Order Number: [id number] Reading MD: Emiliano Ireland Measurements Intervals [place] Rate: 150 P: 0 DC: 58 QRS: 89 QRSD: 129 T: -80 QT: 336 QTc: 531 Interpretive Statements Probable atrial flutter with RVR LBBB Electronically Signed On 01-06-2019 15:18:33 EDT by Emiliano Ireland
[2019-01-06 17:32] LABS: Folate > 22.3 ng/mL (3.0-16.0); Vitamin B12 1034 pg/mL (250-1100)
[2019-01-06] MEDS: Metoprolol XL (24 HR) Succ 25 MG TAB.ER.24H PO SCH (20:27)
[2019-01-06] MEDS: Albuterol 2.5 MG/3 ML NEBULIZER IH PRN (21:57)
[2019-01-07] MEDS: Budesonide/Formoterol 160/4.5 1 PUFF INH IH SCH (09:06)
[2019-01-07] MEDS: Albuterol 2.5 MG/3 ML NEBULIZER IH PRN (09:06)
[2019-01-07] MEDS: Tiotropium 18 MCG inhalation IH SCH (09:07)
[2019-01-07] MEDS: ALPRAZolam 0.25 MG TABLET PO PRN (09:23)
[2019-01-07] MEDS: Diltiazem CD (24hr) 120 MG CAPSULE PO SCH (09:23)
[2019-01-07] MEDS: Bumetanide 1 MG TABLET PO SCH (09:23)
[2019-01-07] MEDS: *HR* Digoxin 0.125 MG TABLET PO SCH (09:23)
[2019-01-07] MEDS: Metoprolol XL (24 HR) Succ 25 MG TAB.ER.24H PO SCH (09:24)
[2019-01-07] MEDS: Mirtazapine 15 MG TABLET PO SCH (09:24)
[2019-01-07] MEDS: Multivit/Ca/Min/Fe/FA 1 TAB TABLET PO SCH (09:24)
[2019-01-07] MEDS: Ascorbic Acid 500 MG TABLET PO SCH (09:24)
[2019-01-07 10:03] LABS: Basophils % 0.3 %; Eosinophils # 0.1 K/mcL (0.0-0.6); Eosinophils % 0.5 %; Hemoglobin 9.7 g/dL (11.5-15.4); Immature Granulocytes % 0.6 % (0-4); Lymphocytes # 1.4 K/mcL (0.6-4.6); Lymphocytes % 9.5 %; Mean Corpuscular HGB Conc 30.3 g/dL (31.6-35.5); Mean Corpuscular Hemoglobin 28.2 pg (28.0-33.3); Mean Platelet Volume 9.8 fL (9.4-12.4); Monocytes % 7.1 %; Platelet Count 311 K/mcL (140-400); Red Blood Count 3.44 M/mcL (3.82-4.97); Red Cell Distribution Width 14.6 % (11.5-14.5); White Blood Count 14.6 K/mcL (4.3-11.1)
[2019-01-07 10:47] VITALS: BP 122/78
--- NOTE | 2019-01-07 11:53 | Discharge Summary ---
Date of Encounter: 01/07/19 Time of Encounter: 11:45 - Discharge Diagnosis (1) SVT (supraventricular tachycardia) Priority: Primary Status: Acute (2) Hypertension Priority: Secondary Status: Chronic Qualifiers: Hypertension type: essential hypertension Qualified Code(s): I10 - Essential (primary) hypertension (3) Anemia Priority: Secondary Status: Acute Qualifiers: Anemia type: other cause Other causes of anemia: other cause, not classified Qualified Code(s): D64.89 - Other specified anemias (4) COPD (chronic obstructive pulmonary disease) with acute bronchitis Priority: Secondary Status: Chronic (5) Non-small cell lung cancer Priority: Secondary Status: Chronic Qualifiers: Laterality: right Qualified Code(s): C34.91 - Malignant neoplasm of unspecified part of right bronchus or lung (6) Cardiomyopathy Priority: Secondary Status: Chronic Qualifiers: Cardiomyopathy type: dilated Qualified Code(s): I42.0 - Dilated cardiomyopathy Hospital course: Ms. Huff is a 78 year old female who came to emergency room after she experienced increased dyspnea at home. She checked her oxygen saturation and pulse and found heart rate significantly elevated. She came to emergency room where she was found to have heart rate approximately 150. She was started on Cardizem drip for SVT and admitted to [facility] floor for ongoing care needs. Initial orders were written by the emergency room physician. I saw her on January 06 and performed a history and physical. IV Cardizem drip was started in the emergency room. She converted to normal sinus rhythm and maintained this the remainder of hospitalization. She was transitioned to oral Cardizem on January 05. Follow-up labs on January 07 showed WBC decreased to 14.6 with decreased left shift of 82.0% segs. Hemoglobin was stable at 9.7. Anemia testing showed iron 45, transferrin saturation 16%, transferrin 195, ferritin 562, B12 1034, and folate > 22.3. Her PCP can continue to monitor. On January 06 she felt stable for discharge home. She will follow with her PCP Dr. Chung Henderson within 1 week. - Time Spent with Patient Total time spent providing and/or coordinating discharge services: - Discharge Medications Prescriptions: New Diltiazem CD (24hr) [Cardizem CD] 120 mg PO DAILY #30 cap.er.24h Continued Buspirone HCl [Buspar] 5 mg PO BID Albuterol Sulfate [Ventolin Hfa] 2 puff IH Q4-6H PRN PRN Reason: Shortness Of Breath Mirtazapine [Remeron] 15 mg PO DAILY ALPRAZolam [Xanax 0.25 MG Tablet] 0.25 mg PO TID PRN PRN Reason: Anxiety Losartan Potassium [Cozaar] 50 mg PO DAILY Multivit-Min/FA/Lycopen/Lutein [Centrum Silver Tablet] 1 each PO DAILY Tiotropium [Spiriva] 2 puff IH DAILY Acetylcysteine [Nac] 600 mg PO BID Atorvastatin [Lipitor] 20 mg PO DAILY Budesonide/Formoterol 160/4.5 [Symbicort 160/4.5] 2 puff IH BIDR Metoprolol XL (24 HR) Succ [Toprol Xl] 25 mg PO DAILY #30 tab.er.24h Digoxin [Lanoxin] 0.125 mg PO DAILY #30 tablet Albuterol Neb [Proventil Neb] 2.5 mg IH Q4-6H PRN PRN Reason: Shortness Of Breath Bumetanide [Bumex] 1 mg PO BID Ascorbic Acid [Vitamin C] 1,000 mg PO DAILY Discontinued predniSONE [PredniSONE] See Taper PO DAILY #14 tablet Cefdinir [Omnicef] 300 mg PO BID Home Medications: Tiotropium [Spiriva] 2 puff IH DAILY 03/09/15 [History] Acetylcysteine [Nac] 600 mg PO BID 09/09/17 [History] Atorvastatin [Lipitor] 20 mg PO DAILY 09/09/17 [History] Budesonide/Formoterol 160/4.5 [Symbicort 160/4.5] 2 puff IH BIDR 11/18/17 [History] Digoxin [Lanoxin] 0.125 mg PO DAILY #30 tablet 11/30/17 [Rx] Metoprolol XL (24 HR) Succ [Toprol Xl] 25 mg PO DAILY #30 tab.er.24h 11/30/17 [Rx] Albuterol Sulfate [Ventolin Hfa] 2 puff IH Q4-6H PRN 12/23/17 [History] Buspirone HCl [Buspar] 5 mg PO BID 12/23/17 [History] Albuterol Neb [Proventil Neb] 2.5 mg IH Q4-6H PRN 02/05/18 [History] Mirtazapine [Remeron] 15 mg PO DAILY 02/05/18 [History] ALPRAZolam [Xanax 0.25 MG Tablet] 0.25 mg PO TID PRN 02/08/18 [History] Losartan Potassium [Cozaar] 50 mg PO DAILY 04/29/18 [History] Multivit-Min/FA/Lycopen/Lutein [Centrum Silver Tablet] 1 each PO DAILY 04/29/18 [History] Ascorbic Acid [Vitamin C] 1,000 mg PO DAILY 11/26/18 [History] Bumetanide [Bumex] 1 mg PO BID 11/26/18 [History] Diltiazem CD (24hr) [Cardizem CD] 120 mg PO DAILY #30 cap.er.24h 01/07/19 [Rx] Allergies/Adverse Reactions: Allergy/AdvReac Type Severity Reaction Status Date / Time codeine Allergy Rash Verified 10/15/18 13:35 levofloxacin [From Levaquin] Allergy Joint Pain Verified 10/15/18 13:35 Date of admission: 01/05/19 17:30 Primary care physician: Chung Henderson MD - Constitutional Vitals: Temp Pulse Resp BP Pulse Ox 98.7 F 80 20 122/78 97 01/07/19 10:45 01/07/19 10:45 01/07/19 10:45 01/07/19 10:45 01/07/19 10:45 - Patient Status Disposition: Home Health Service Condition: Fair - Discharge Instructions Follow Up With: Chung Henderson MD [Primary Care Provider] - 1 week - Diet and Activity Activity: resume usual activities as tolerated, wear oxygen at all times Diet: advance to your usual diet - VTE Documentation of Mechanical Device: Graduated compression elastic hosiery
--- NOTE | 2019-01-07 11:59 | Physician Discharge Referral ---
Home Health/Hosp Referral Info Transfer to: Home Health Attending Provider: Tenzin Provider in Charge Post Discharge: PCP (Chung Henderson M.D.) - Diagnosis (1) SVT (supraventricular tachycardia) Priority: Primary Status: Resolved (2) Hypertension Priority: Secondary Status: Chronic (3) Anemia Priority: Secondary Status: Acute (4) COPD (chronic obstructive pulmonary disease) with acute bronchitis Priority: Secondary Status: Chronic (5) Non-small cell lung cancer Priority: Secondary Status: Chronic (6) Cardiomyopathy Priority: Secondary Status: Chronic - Respiratory Orders Oxygen / L per min (2 L/m by nasal cannula 22/12.) Smoking Cessation: Smoking cessation has been advised. For more information, call the [employer] Tobacco Quit Line at 1-992-VNXH-NOW. - Diet/Nutrition Diet/Nutrition Orders: Regular - Activity Activity Orders: Ambulate - Services Needed Following services are medically necessary services: Nursing, Home Health Aide, Physical Therapy, Occupational Therapy - Transfer Medications Prescriptions: Diltiazem CD (24hr) [Cardizem CD] 120 mg PO DAILY #30 cap.er.24h Home Medications: Tiotropium [Spiriva] 2 puff IH DAILY 03/09/15 [History] Acetylcysteine [Nac] 600 mg PO BID 09/09/17 [History] Atorvastatin [Lipitor] 20 mg PO DAILY 09/09/17 [History] Budesonide/Formoterol 160/4.5 [Symbicort 160/4.5] 2 puff IH BIDR 11/18/17 [History] Digoxin [Lanoxin] 0.125 mg PO DAILY #30 tablet 11/30/17 [Rx] Metoprolol XL (24 HR) Succ [Toprol Xl] 25 mg PO DAILY #30 tab.er.24h 11/30/17 [Rx] Albuterol Sulfate [Ventolin Hfa] 2 puff IH Q4-6H PRN 12/23/17 [History] Buspirone HCl [Buspar] 5 mg PO BID 12/23/17 [History] Albuterol Neb [Proventil Neb] 2.5 mg IH Q4-6H PRN 02/05/18 [History] Mirtazapine [Remeron] 15 mg PO DAILY 02/05/18 [History] ALPRAZolam [Xanax 0.25 MG Tablet] 0.25 mg PO TID PRN 02/08/18 [History] Losartan Potassium [Cozaar] 50 mg PO DAILY 04/29/18 [History] Multivit-Min/FA/Lycopen/Lutein [Centrum Silver Tablet] 1 each PO DAILY 04/29/18 [History] Ascorbic Acid [Vitamin C] 1,000 mg PO DAILY 11/26/18 [History] Bumetanide [Bumex] 1 mg PO BID 11/26/18 [History] Diltiazem CD (24hr) [Cardizem CD] 120 mg PO DAILY #30 cap.er.24h 01/07/19 [Rx] Allergies/Adverse Reactions: Allergy/AdvReac Type Severity Reaction Status Date / Time codeine Allergy Rash Verified 10/15/18 13:35 levofloxacin [From Levaquin] Allergy Joint Pain Verified 10/15/18 13:35 Certification: Further, I certify that my clinical findings support that this patient is homebound (i.e. absences from home require considerable and taxing effort and are for medical reasons or zoroastrianism services or infrequently or short duration when for other reasons) because: Homebound Reason: Leaving home requires considerable and taxing effort due to condition (Severe COPD with impaired ambulation ability.) Attestation: My signature below is to certify that this patient is under my care and that I, or nurse practitioner, or a physician's acute care certified nursing assistant working with me, has a [id number] encounter with this patient.
== END 2019-01-07 13:05 | disposition home health service (06) ==
LOC: INPPIK 14:38 → EMEROOPIK 14:38 → INPPIK 18:24
PROVIDERS: ADMIT Internal Medicine; ATTEND Internal Medicine

== ENCOUNTER 2020-09-18 13:06 | Inpatient (IN) ==
[2020-09-18] MEDS ORDERED: cefTRIAXone 2,000 MG in Water for inj. (sterile) 10 ML IVP ONE (13:22)
[2020-09-18] MEDS ORDERED: methylPREDNISolone 125 MG/2 ML VIAL IVP ONE (13:22)
[2020-09-18] MEDS ORDERED: Azithromycin 500 MG in 0.9 % Sodium Chloride 250 ML IVPB ONE (13:22)
[2020-09-18] MEDS ORDERED: Ipratropium/Albuterol Neb 3 ML IH ONE (13:22)
[2020-09-18 13:24] LABS: Bilirubin,Urine Negative (Negative); Blood,Urine Negative (Negative); Clarity,Urine Clear (Clear); Color,Urine Yellow (Yellow); Glucose,Urine (UA) Normal (Normal); Ketones,Urine Negative (Negative); Leukocyte Esterase,Urine Negative (Negative); Nitrite,Urine Negative (Negative); Protein,Urine Negative (Neg-Trace); Specific Gravity,Urine 1.015 (1.010-1.025); Urobilinogen,Urine Normal (Normal)
[2020-09-18] MEDS ORDERED: cefTRIAXone 2,000 MG in Water for inj. (sterile) 20 ML IVP ONE (13:39)
[2020-09-18 13:55] LABS: Basophils # 0.1 K/mcL (0.0-0.2); Basophils % 0.4 %; Eosinophils % 0.1 %; Hematocrit 36.5 % (35.3-44.9); Hemoglobin 11.5 g/dL (11.5-15.4); Immature Granulocytes % 0.6 % (0-4); Lymphocytes # 0.6 K/mcL (0.6-4.6); Mean Corpuscular HGB Conc 31.5 g/dL (31.6-35.5); Mean Corpuscular Hemoglobin 27.3 pg (28.0-33.3); Mean Corpuscular Volume 86.7 fL (83.0-100.0); Mean Platelet Volume 10.5 fL (9.4-12.4); Monocytes # 0.3 K/mcL (0.0-1.3); Monocytes % 1.9 %; Neutrophils # 14.5 K/mcL (1.6-8.9); Platelet Count 521 K/mcL (140-400); Red Blood Count 4.21 M/mcL (3.82-4.97); Red Cell Distribution Width 14.6 % (11.5-14.5); White Blood Count 15.6 K/mcL (4.3-11.1)
[2020-09-18 14:04] LABS: INR 1.7; Prothrombin Time 19.8 Seconds (9.4-12.1)
[2020-09-18 14:06] LABS: Troponin I < 0.03 ng/mL (< 0.04)
[2020-09-18 14:10] LABS: BUN/Creatinine Ratio 22 (6-26); Blood Urea Nitrogen 60 mg/dL (8-23); Calcium 9.5 mg/dL (8.6-10.3); Carbon Dioxide 27 mEq/L (23-29); Chloride 94 mEq/L (98-107); Glucose 207 mg/dL (70-105); Osmolality,Calculated 297 (280-300); Sodium 132 mEq/L (136-145); eGFR For African Americans 20 (> 60); eGFR For Non-African Americans 17 (> 60)
[2020-09-18] MEDS ORDERED: 0.9 % Sodium Chloride 500 ML IVC ONE (14:21)
[2020-09-18] MEDS ORDERED: Mag Hydrox/Al Hydrox/Simeth 30 ML UDC PO PRN (14:57)
[2020-09-18] MEDS ORDERED: MOM Conc 10 ML UD.LIQ PO PRN (14:57)
[2020-09-18] MEDS ORDERED: Ondansetron 4 MG/2 ML VIAL IVP PRN (14:57)
[2020-09-18] MEDS ORDERED: Naloxone 0.4 MG/ML INJ IVP PRN (14:57)
[2020-09-18] MEDS ORDERED: Loratadine 10 MG TABLET PO PRN (15:13)
[2020-09-18] MEDS: 0.9 % Sodium Chloride 1,000 ML IVC SCH (15:14)
[2020-09-18] MEDS ORDERED: Fluticasone Propionate Nasal 50 MCG/SPRAY BOTTLE NS PRN (15:15)
[2020-09-18] MEDS: Ipratropium/Albuterol Neb 3 ML IH SCH ×2 (20:11→23:56)
[2020-09-18] MEDS: Acetaminophen 325 MG TABLET PO PRN (21:45)
[2020-09-18] MEDS: ALPRAZolam 0.25 MG TABLET PO PRN (21:45)
[2020-09-18] MEDS: Apixaban 5 MG TABLET PO SCH (21:45)
[2020-09-18] MEDS: Mirtazapine 15 MG TABLET PO SCH (21:45)
[2020-09-18] MEDS: Latanoprost 2.5 ML BOTTLE BOTH EYES SCH (21:47)
[2020-09-18] MEDS: Budesonide/Formoterol 160/4.5 1 PUFF INH IH SCH (22:01)
[2020-09-18] MEDS: Melatonin 3 MG TABLET PO PRN (22:07)
[2020-09-19] MEDS: MethylPREDNISolone 40 MG/ML VIAL IVP SCH ×3 (01:04→20:47)
[2020-09-19] MEDS: 0.9 % Sodium Chloride 1,000 ML IVC SCH ×3 (01:05→20:45)
[2020-09-19] MEDS: Ipratropium/Albuterol Neb 3 ML IH SCH ×5 (04:21→20:26)
[2020-09-19 05:13] LABS: Basophils % 0.1 %; Hematocrit 29.2 % (35.3-44.9); Hemoglobin 9.1 g/dL (11.5-15.4); Immature Granulocytes % 0.8 % (0-4); Lymphocytes # 0.4 K/mcL (0.6-4.6); Lymphocytes % 4.6 %; Mean Corpuscular HGB Conc 31.2 g/dL (31.6-35.5); Mean Corpuscular Hemoglobin 27.6 pg (28.0-33.3); Mean Corpuscular Volume 88.5 fL (83.0-100.0); Mean Platelet Volume 10.4 fL (9.4-12.4); Monocytes # 0.2 K/mcL (0.0-1.3); Monocytes % 2.4 %; Platelet Count 303 K/mcL (140-400); Red Cell Distribution Width 14.5 % (11.5-14.5); Segmented Neutrophils % 92.1 %; White Blood Count 7.6 K/mcL (4.3-11.1)
[2020-09-19 06:11] LABS: Calcium 8.2 mg/dL (8.6-10.3); Potassium 5.1 mEq/L (3.5-5.1)
[2020-09-19] MEDS: Budesonide/Formoterol 160/4.5 1 PUFF INH IH SCH ×2 (07:38→20:35)
[2020-09-19] MEDS: *HR* Acetylcysteine 20% 600 MG/3 ML ORAL SYRINGE PO SCH ×2 (10:02→20:45)
[2020-09-19] MEDS: Apixaban 5 MG TABLET PO SCH ×2 (10:03→20:46)
[2020-09-19] MEDS: Multivit/Ca/Min/Fe/FA 1 TAB TABLET PO SCH (10:03)
[2020-09-19] MEDS: *HR* Digoxin 0.125 MG TABLET PO SCH (10:03)
[2020-09-19] MEDS: ALPRAZolam 0.25 MG TABLET PO PRN ×3 (10:03→23:13)
[2020-09-19] MEDS: Metoprolol XL (24 HR) Succ 25 MG TAB.ER.24H PO SCH (10:04)
[2020-09-19] MEDS ORDERED: Azithromycin 500 MG in 0.9 % Sodium Chloride 250 ML IVPB SCH (14:00)
[2020-09-19] MEDS: Latanoprost 2.5 ML BOTTLE BOTH EYES SCH (20:46)
[2020-09-19] MEDS: Mirtazapine 15 MG TABLET PO SCH (20:54)
[2020-09-19] MEDS: Acetaminophen 325 MG TABLET PO PRN (23:13)
[2020-09-19] MEDS: Melatonin 3 MG TABLET PO PRN (23:14)
[2020-09-20] MEDS: Ipratropium/Albuterol Neb 3 ML IH SCH ×6 (04:20→20:41)
[2020-09-20 05:48] LABS: Basophils % 0.3 %; Hematocrit 32.9 % (35.3-44.9); Hemoglobin 9.2 g/dL (11.5-15.4); Immature Granulocytes % 2.8 % (0-4); Lymphocytes # 0.5 K/mcL (0.6-4.6); Lymphocytes % 3.8 %; Mean Corpuscular Hemoglobin 27.2 pg (28.0-33.3); Mean Corpuscular Volume 97.3 fL (83.0-100.0); Mean Platelet Volume 10.5 fL (9.4-12.4); Monocytes # 0.4 K/mcL (0.0-1.3); Monocytes % 3.1 %; Neutrophils # 11.4 K/mcL (1.6-8.9); Platelet Count 361 K/mcL (140-400); Red Blood Count 3.38 M/mcL (3.82-4.97); Red Cell Distribution Width 15.1 % (11.5-14.5); White Blood Count 12.7 K/mcL (4.3-11.1)
[2020-09-20 06:22] LABS: Calcium 8.3 mg/dL (8.6-10.3); Potassium 5.3 mEq/L (3.5-5.1)
[2020-09-20] MEDS: 0.9 % Sodium Chloride 1,000 ML IVC SCH (06:22)
[2020-09-20] MEDS: MethylPREDNISolone 40 MG/ML VIAL IVP SCH ×3 (08:08→23:37)
[2020-09-20] MEDS: Multivit/Ca/Min/Fe/FA 1 TAB TABLET PO SCH (08:09)
[2020-09-20] MEDS: Apixaban 5 MG TABLET PO SCH ×2 (08:09→21:08)
[2020-09-20] MEDS: Metoprolol XL (24 HR) Succ 25 MG TAB.ER.24H PO SCH (08:10)
[2020-09-20] MEDS: ALPRAZolam 0.25 MG TABLET PO PRN ×3 (08:19→21:09)
[2020-09-20] MEDS: Budesonide/Formoterol 160/4.5 1 PUFF INH IH SCH ×2 (08:46→20:40)
[2020-09-20 09:00] LABS: % Iron Saturation 18 % (15-50); Iron 59 mcg/dL (50-170); Transferrin 237 mg/dL (203-362)
[2020-09-20 09:31] LABS: Folate 14.8 ng/mL (3.0-16.0)
[2020-09-20] MEDS: Bumetanide 1 MG TABLET PO SCH ×2 (10:58→21:09)
[2020-09-20] MEDS: *HR* Acetylcysteine 20% 600 MG/3 ML ORAL SYRINGE PO SCH ×2 (11:55→21:22)
[2020-09-20] MEDS ORDERED: Azithromycin 250 MG TABLET PO ONE (13:37)
[2020-09-20] MEDS ORDERED: Lactulose Oral Soln 20 GM/30 ML UDC PO ONE (14:18)
[2020-09-20] MEDS ORDERED: Bisacodyl 10 MG RECTAL SUPPOSITORY RC PRN (16:17)
[2020-09-20] MEDS: Acetaminophen 325 MG TABLET PO PRN (16:37)
[2020-09-20] MEDS: Sennosides/Docusate Sodium TABLET PO SCH (21:09)
[2020-09-20] MEDS: Mirtazapine 15 MG TABLET PO SCH (21:21)
[2020-09-20] MEDS: Latanoprost 2.5 ML BOTTLE BOTH EYES SCH (21:21)
[2020-09-20] MEDS: Melatonin 3 MG TABLET PO PRN (23:37)
[2020-09-21] MEDS: Acetaminophen 325 MG TABLET PO PRN (02:43)
[2020-09-21] MEDS: Ipratropium/Albuterol Neb 3 ML IH SCH ×4 (03:55→13:19)
[2020-09-21 06:47] VITALS: BP 160/82
[2020-09-21 07:36] LABS: Basophils % 0.2 %; Hematocrit 32.8 % (35.3-44.9); Hemoglobin 9.9 g/dL (11.5-15.4); Immature Granulocytes % 2.2 % (0-4); Lymphocytes # 0.5 K/mcL (0.6-4.6); Lymphocytes % 4.3 %; Mean Corpuscular HGB Conc 30.2 g/dL (31.6-35.5); Mean Corpuscular Hemoglobin 27.1 pg (28.0-33.3); Mean Corpuscular Volume 89.9 fL (83.0-100.0); Mean Platelet Volume 10.5 fL (9.4-12.4); Monocytes # 0.5 K/mcL (0.0-1.3); Monocytes % 4.1 %; Neutrophils # 11.2 K/mcL (1.6-8.9); Platelet Count 385 K/mcL (140-400); Red Blood Count 3.65 M/mcL (3.82-4.97); Red Cell Distribution Width 14.9 % (11.5-14.5); Segmented Neutrophils % 89.2 %; White Blood Count 12.5 K/mcL (4.3-11.1)
[2020-09-21 07:52] LABS: Calcium 8.6 mg/dL (8.6-10.3); Potassium 4.5 mEq/L (3.5-5.1)
[2020-09-21] MEDS: Multivit/Ca/Min/Fe/FA 1 TAB TABLET PO SCH (08:59)
[2020-09-21] MEDS: Bumetanide 1 MG TABLET PO SCH (08:59)
[2020-09-21] MEDS: MethylPREDNISolone 40 MG/ML VIAL IVP SCH (08:59)
[2020-09-21] MEDS: Metoprolol XL (24 HR) Succ 25 MG TAB.ER.24H PO SCH (09:00)
[2020-09-21] MEDS: *HR* Digoxin 0.125 MG TABLET PO SCH (09:00)
[2020-09-21] MEDS: ALPRAZolam 0.25 MG TABLET PO PRN (09:00)
[2020-09-21] MEDS: Sennosides/Docusate Sodium TABLET PO SCH (09:00)
[2020-09-21] MEDS: Apixaban 5 MG TABLET PO SCH (09:00)
[2020-09-21] MEDS: *HR* Acetylcysteine 20% 600 MG/3 ML ORAL SYRINGE PO SCH (09:05)
[2020-09-21] MEDS: Budesonide/Formoterol 160/4.5 1 PUFF INH IH SCH (09:43)
== END 2020-09-21 15:42 | disposition home health service (06) | DRG 191 ==
LOC: INPPIK 13:06 → EMEROOPIK 13:06 → INPPIK 15:33
PROVIDERS: ADMIT Family Medicine; ATTEND Family Medicine